=== PATIENT | female | born 1960 | race Caucasian/White ===

== ENCOUNTER 2021-12-05 11:21 | Day surgery (SDC) | payer OTHER ==
[2021-12-04 11:43] VITALS: BMI 35.6
[~2021-12-05 11:21] MED LIST: ATROPINE SULFATE 0.4 MG/ML 1 ML VIAL IM ONE; LACTATED RINGERS 1,000 ML IV SCH; LIDOCAINE VISCOUS 300 MG/15 ML CUP MUCOUS MEM ONE; SODIUM CHLORIDE 0.9% 1,000 ML IV SCH
[2021-12-05] MEDS ORDERED: ONDANSETRON 4 MG/2 ML VIAL ONE (11:56)
[2021-12-05 12:13] LABS: Glucose,Whole Blood 118 mg/dL (70-110)
--- NOTE | 2021-12-05 12:53 | CT ---
EXAMINATION TYPE: CT Chest evelyn Olson Protocol DATE OF EXAM: 12/05/2021 COMPARISON: None HISTORY: 61-year-old female shortness of breath, imaging for NAVIGATIONAL BRONCHOSCOPY 12/05/21 TECHNIQUE: Contiguous axial scanning of the chest without IV contrast. Both inspiratory and expirator y phase imaging is performed. Coronal and sagittal reconstructions performed. CT DLP: 627.4 mGycm Automated exposure control for dose reduction was used. FINDINGS: Heart normal size without pericardial effusion. LAD coronary artery calcifications are present. Ectatic ascending aorta 3.8 cm. Mild atherosclerotic arch calcifications with conventional vessel bra nching anatomy. No thoracic lymphadenopathy by CT size criteria. Mild centrilobular emphysema. 4 mm subpleural pulmonary nodule posterior right upper lobe, axial image 18 is nonspecific. A vague 8 mm groundglass nodule right middle lobe, axial image 34 is nonspecific. A 1.8 cm posterior left lower lobe pulmonary nodule is more suspicious. No consolidation or pleural effusion. Tiny hiatal hernia. Visualized upper abdomen shows some calcifications right side of the liver, possi ble calcified granulomas mild to moderate stool burden. Moderate atelectatic calcifications continue in the abdominal aorta. Bones: Degenerative change left AC joint. Mild degenerative disc disease mid to lower thoracic spine. IMPRESSION: COPD WITH MILD EMPHYSEMA. A FEW PULMONARY NODULES ARE PRESENT WHICH CAN BE REASSESSED AT FOLLOW-UP. H OWEVER, A 1.8 CM POSTERIOR LEFT LOWER LOBE PULMONARY NODULE IS SUSPICIOUS FOR NEOPLASM. APPROPRIATE W ORKUP AND MANAGEMENT RECOMMENDED. IMAGING FOR ENDOBRONCHIAL NAVIGATION PLANNING PURPOSES.
[2021-12-05] MEDS ORDERED: PROPOFOL 10 MG/ML 20 ML VIAL IV ONE (13:08)
[2021-12-05] MEDS ORDERED: NEOSTIGMINE 1 MG/ML 10 ML VIAL ONE (13:08)
[2021-12-05] MEDS ORDERED: SUCCINYLCHOLINE CHLORIDE 200 MG/10 ML VIAL IV ONE (13:08)
[2021-12-05] MEDS ORDERED: fentaNYL (PF) 50 MCG/ML 2 ML AMP ONE (13:08)
[2021-12-05] MEDS ORDERED: MIDAZOLAM 2 MG/2 ML VIAL ONE (13:08)
[2021-12-05] MEDS ORDERED: GLYCOPYRROLATE 0.2 MG/ML 2 ML VIAL ONE (13:08)
[2021-12-05] MEDS ORDERED: LIDOCAINE 2% INJ 20 MG/ML (2 ML VIAL) ONE (13:08)
[2021-12-05] MEDS ORDERED: ROCURONIUM 10 MG/ML (5 ML VIAL) IV ONE (13:08)
[2021-12-05] MEDS ORDERED: LACTATED RINGERS 1,000 ML IV ONE (13:54)
[2021-12-05 14:12] VITALS: TEMP 97.4
--- NOTE | 2021-12-05 14:33 | XR ---
EXAMINATION TYPE: XR chest 1V portable DATE OF EXAM: 12/05/2021 COMPARISON: CT chest 12/05/2021 HISTORY: Post biopsy TECHNIQUE: Single frontal view of the chest is obtained. FINDINGS: No evident complication, there is no pneumothorax evident. No sizable effusion. Heart size accentuated likely due to prominent epicardial fat pad. Patient's left lower lobe lung nodule not we ll seen. Aorta is dense. IMPRESSION: No evident complication status post lung biopsy.
[2021-12-05 14:52] VITALS: RESP 18
[2021-12-05 15:26] VITALS: BP 143/72; PULSE 78
--- NOTE | 2021-12-05 23:31 | PCN ---
PROCEDURE NOTE PROCEDURE PERFORMED: Navigational bronchoscopy. PREOPERATIVE DIAGNOSIS: Solitary pulmonary nodule, left lower lobe. POSTOPERATIVE DIAGNOSIS: Solitary pulmonary nodule, left lower lobe, rule out cancer. OPERATORS: Dr. Awad and Dr. Pop. The patient's procedure took place in room #1 [facility]. There was informed consent and universal timeout. DESCRIPTION OF PROCEDURE: Anesthesia provided general anesthesia including Dr. Ernandez. After the patient was adequately sedated under the effects of anesthesia, the bronchoscope was inserted through the bronchoscope adapter connected to the endotracheal tube. We used the [employer] electromagnetic navigational system to guide this to the lesion in the left lower lobe. Preprocedure mapping was performed. Initially, we were able to localize the lesion and do multiple transbronchial biopsies. The patient tolerated that portion of the procedure well. Next, we did brushes in the same area of the left lower lobe. Next, we did needle biopsies of the left lower lobe and we finally did a wash in the left lower lobe. We did 2 good needle biopsies with relatively good localization. The patient tolerated the procedure well. There was no immediate complication. A chest x- ray will be ordered. The patient will be recovered. I did talk to the patient's son, Jaleel, to give him an update. All the specimens were sent to the laboratory for analysis. Again, the patient tolerated the procedure well without difficulty. MMODL / IJN: [id number] /
[2021-12-06 01:05] LABS: Appearance,BF Blood Tinged
== END 2021-12-05 15:38 | disposition home or self-care (01) ==
LOC: ORWHC2ENDO 11:21
PROVIDERS: ATTEND Internal Medicine Critical Care Medicine
DX: R91.1 Solitary pulmonary nodule (principal); I10 Essential (primary) hypertension; E78.5 Hyperlipidemia, unspecified; J44.9 Chronic obstructive pulmonary disease, unspecified; F41.9 Anxiety disorder, unspecified; K21.9 Gastro-esophageal reflux disease without esophagitis; B19.20 Unspecified viral hepatitis C without hepatic coma; E07.9 Disorder of thyroid, unspecified; E11.9 Type 2 diabetes mellitus without complications; Z79.899 Other long term (current) drug therapy; Z87.891 Personal history of nicotine dependence; Z79.51 Long term (current) use of inhaled steroids; Z79.890 Hormone replacement therapy; Z79.84 Long term (current) use of oral hypoglycemic drugs; Z88.1 Allergy status to other antibiotic agents; T75.3XXD Motion sickness, subsequent encounter
CPT/HCPCS: 88104; 88108; 88305; 89050; 87070; 87205; 71045; 71250; 31629; 31625; 31624; 31627; J2250; J0330; J0461; J2710; J2405; J3010; J2704; J2001; 31623

== ENCOUNTER → 2022-10-30 | Outpatient (CLI) | payer OTHER ==
[2022-10-30 18:30] LABS: African American GFR (CKD) >90 (>60 ml/min/1.73 sqM); Blood Urea Nitrogen 14 mg/dL (7-17); Non-African American GFR(CKD) >90 (>60 ml/min/1.73 sqM)
--- NOTE | 2022-10-31 13:04 | CT ---
EXAMINATION TYPE: CT chest w con DATE OF EXAM: 10/30/2022 COMPARISON: 03/08/2022 HISTORY: lung nodules CT DLP: 522.1 mGycm, Automated exposure control for dose reduction was used. CONTRAST: Performed injected with 100 cc mL of Isovue 300. TECHNIQUE: Axial images were obtained at 5 mm thick sections. Reconstructed images are reviewed on [employer] computer in the coronal plane. FINDINGS: Portion of the thyroid visualized is normal. There is a 0.9 cm lobular density in the periphery right midlung. Series 4 image 39. This appears to be new from the comparison study of 03/08/2022. There is increased density in the posterior medial left lung base, series 4 image 47, measuring 2.0 x 3.5 cm. This may be the location of a previous nodule in the posterior left lower lobe which may h ave been resected. No enlarged mediastinal or hilar adenopathy is evident. . Small lymph nodes are present. The ascend ing aorta diameter at the level of the main pulmonary artery is 3.7 cm. The main pulmonary artery di ameter at the bifurcation is 2.7 cm. Coronary artery calcification is evident. Limited CT sections are obtained through the upper abdomen. Abdomen is essentially unremarkable. IMPRESSION: 1. New subcentimeter lobular density peripheral right midlung. Consider PET/CT for additional workup. 2. Suspected post resection posterior right lung base nodule with scarring and surgical clips posteri or medial left lung base.
== END | disposition home or self-care (01) ==
LOC: RADCTMAIN 17:31
PROVIDERS: ATTEND Internal Medicine Critical Care Medicine
DX: J98.4 Other disorders of lung (principal); R91.1 Solitary pulmonary nodule
CPT/HCPCS: 82565; 84520; 71260; 36415; Q9967

== ENCOUNTER → 2022-12-07 | Outpatient (CLI) | payer BC ==
--- NOTE | 2022-12-12 08:44 | PE ---
EXAMINATION TYPE: PET CT fusion skull to thigh DATE OF EXAM: 12/07/2022 COMPARISON: CT chest 10/29/2022 Prior PET/CT: None HISTORY: Solitary pulmonary nodule TECHNIQUE: Following the intravenous administration of 10.3 mCi of F-18 FDG, whole body images are p erformed from the skull base to the midthigh. Images are reviewed on the computer in the coronal, ax ial, and sagittal planes. Reconstructed rotating images are created on independent workstation and r eviewed on the computer. A localization and attenuation correction CT is performed in conjunction w ith the PET scan. DLP: 794.99 mGycm SCAN: Initial Scan Blood glucose: 136 mg/dL Average Mediastinum SUV: 2.2 Average Liver SUV: 2.89 FINDINGS: NECK: There is some mildly increased uptake within the right posterior auricular lymph node with an SUV of 2.51. Image 26 THORAX: There is a focus of radiotracer within a left peribronchial lymph node, image 83, SUV 6.3. Th ere is a punctate focus of increased radiotracer in the left infrahilar region, image 86, SUV 3.15. T here is increased uptake in the subcarinal region, image 90, SUV 3.64. Within the infrahilar mass on the superior portion there is a focus of increased radiotracer accumula tion, image 93 SUV 7.27. ABDOMEN: No abnormal uptake PELVIS: No abnormal uptake OSSEOUS STRUCTURES: No abnormal uptake LOCALIZATION CT: There are additional prominent lymph nodes within the pretracheal space without abno rmal radiotracer uptake. COMPARISON: Findings at the left infrahilar region correlate with the superior portion CT mass the le ft infrahilar region. IMPRESSION: 1. Uptake within the left infrahilar lung mass with additional uptake within infrahilar and mediastin al lymph nodes discussed above. 2. Some right posterior auricular uptake may be within a lymph node. This is more intermediate intens ity and could be related to infection.
== END | disposition home or self-care (01) ==
LOC: RADPETMAIN 11:53
PROVIDERS: ATTEND Internal Medicine Critical Care Medicine
DX: R91.1 Solitary pulmonary nodule (principal); R91.8 Other nonspecific abnormal finding of lung field
CPT/HCPCS: 78815; A9552

== ENCOUNTER → 2023-04-04 | Outpatient (CLI) | payer BC ==
[2023-04-04 11:00] LABS: African American GFR (CKD) >90 (>60 ml/min/1.73 sqM); Blood Urea Nitrogen 18 mg/dL (7-17); Non-African American GFR(CKD) 82 (>60 ml/min/1.73 sqM)
--- NOTE | 2023-04-04 12:53 | CT ---
Exam: CT Chest with contrast. Date: 04/04/2023. Comparison: PET/CT on 12/07/2022. History: Lung cancer. Technique: CT examination of the chest was performed following the intravenous administration of 100 mL of Isovue-300. Coronal and sagittal reformats were performed. CT dose lowering techniques were us ed, to include: automated exposure control, adjustment for patient size, and/or use of iterative braxton nstruction. FINDINGS: Mediastinum and Renuka: There is enlarged lower cervical lymph node and supraclavicular lymph node sanjuanita uring up to 1.4 cm in short axis diameter. This appears new since the previous examination. New enlar ged necrotic appearing subcarinal lymph node measuring 1.9 cm in short axis diameter. Pleural and Pericardial spaces: There are no pleural or pericardial effusions. Upper Abdomen: Unchanged cyst in the left lobe of liver measuring 3.37 m in diameter. Mild diffuse de creased attenuation of the liver is compatible fatty liver infiltration. The visualized upper abdomen otherwise appears unremarkable. Cardiovascular: There is mild vascular calcification in the thoracic aorta without evidence of aneury smal dilation or dissection. Mild patchy coronary artery calcifications are seen. Pulmonary Artery: There are no central pulmonary arterial abnormalities. The examination was not per formed to evaluate for pulmonary embolism. Lung Parenchyma and Airways: 2 mm nodule in the right upper lobe on series 4 image 16 is unchanged. I rregular parenchymal changes within the left lower lobe and infrahilar region measures up to approxim ately 2.5 cm in maximum diameter. This appears similar to the previous examination. There are a few b ands of opacity otherwise seen within the left lung base which are likely due to chronic scarring. Th e lungs otherwise appear clear. Bones: No fracture or aggressive osseous lesion. IMPRESSION: 1. New enlarged left supraclavicular and subcarinal lymph node which is suspicious for metastatic dis ease. 2. Infrahilar parenchymal abnormality and mass in the left lower lobe appears very similar to the pre vious examination and may represent residual disease.
== END | disposition home or self-care (01) ==
LOC: RADCTMAIN 10:01
PROVIDERS: ATTEND Internal Medicine Hematology & Oncology
DX: R91.8 Other nonspecific abnormal finding of lung field (principal); C34.32 Malignant neoplasm of lower lobe, left bronchus or lung; J44.9 Chronic obstructive pulmonary disease, unspecified; I10 Essential (primary) hypertension; E05.90 Thyrotoxicosis, unspecified without thyrotoxic crisis or storm
CPT/HCPCS: 82565; 84520; 71260; 36415; Q9967

== ENCOUNTER 2023-04-17 08:08 | Day surgery (SDC) | payer BC ==
--- NOTE | 2023-04-15 10:57 | PE ---
EXAMINATION TYPE: PET CT fusion skull to thigh DATE OF EXAM: 04/11/2023 CLINICAL INDICATION:Female, 62 years old with history of R91.1 LUNG NODULE; TECHNIQUE: Following the intravenous administration of 8.23 mCi of F-18 FDG, whole body images are performed from the skull base to the midthigh. Images are reviewed on the computer in the coronal, a xial, and sagittal planes. Reconstructed rotating images are created on independent workstation and reviewed on the computer. A non-contrast CT is performed in conjunction with the PET scan. Glucose level 105 mg/dL CT DLP: 840 mGycm, Automated exposure control for dose reduction was used. COMPARISON: CT 04/04/2023, PET/CT 12/07/2022, FINDINGS: Mediastinal SUV mean is 2.4 . Hepatic parenchyma SUV mean is 2.5. SKULL BASE AND NECK: * Left neck FDG avid lymph node max SUV 12.2 measuring 10 mm in short axis. CHEST, MEDIASTINUM, AND HILAR REGION: Scattered mediastinal FDG avid lymph nodes. Examples include: * Subcarinal lymph node measuring 36 x 18 mm Max SUV 15.6 * 10L max SUV 9.4, previously 6.3. * Right low paratracheal max SUV 15.0. Left inferior pulmonary hilum max SUV 11.1, previously 7.3. * Left infrahilar/lower lobe precarinal abnormality max SUV 2.7 previously 7.3. Findings likely repr esent scarring. ABDOMEN AND PELVIS: Heterogenous uptake within the liver. No definitive lesions identified. Areas of more focal uptake scattered throughout all to be physiologic. Attention on follow-up imaging. MUSCULOSKELETAL STRUCTURES: * Abnormal uptake within the left glenoid of the scapula max SUV 10.4. Uptake around the capsule is also present more superiorly max SUV 8.3. OTHER CT: A left hepatic lobe probable cyst. Right hepatic lobe calcifications. Metallic density. Sca ttered colonic diverticula. Fat-containing umbilical hernia. IMPRESSION: 1. Progression of disease with increasing metabolic reactive lymphadenopathy throughout the spine, a single left neck lymph no. 2. Uptake within the left glenoid possibly posttraumatic versus metastatic disease. Correlate with r ecent injury to left shoulder given some capsular uptake. * Heterogenous uptake within the liver. Areas of more focal uptake scattered throughout are thought to be physiologic. Attention on follow-up imaging to exclude early metastatic disease.
[2023-04-17 08:40] VITALS: BP 142/69; PULSE 80; RESP 12; TEMP 97.4
--- NOTE | 2023-04-17 13:18 | US ---
EXAMINATION TYPE: US biopsy lymph node DATE OF EXAM: 04/17/2023 9:33 AM CLINICAL INDICATION: Female, 62 years old with history of C34.32 MALIGNANT NEOPLASM OF LOWER LOBE, LE FT BRON; COMPARISON: Correlation PET/CT 04/11/2023 ATTENDING: Dr. Ch TECHNIQUE: Ultrasound guided percutaneous biopsy of a mildly enlarged left supraclavicular lymph node using troc ar method. The patient was monitored by a qualified trained nurse independent of the Radiologist vu zepeda sedation. FINDINGS: The procedure was explained to the patient. All questions were answered and informed consent was obta ined. The patient was placed supine and images of the 2 cm thickened left supraclavicular lymph node are id entified. This is targeted for biopsy. The overlying skin was marked and prepped using sterile method. Timeout was taken per protocol. Follo wing administration 1% local lidocaine anesthesia, a 6 cm 18-gauge Temno needle was advanced with nee dle tip visualized within the lymph node. We avoided the surrounding veins and adjacent carotid arter y. Two 18-gauge core biopsies were obtained, placed in formalin solution, and sent to pathology. The needle was removed. Hemostasis was obtained and a dressing was placed. Patient was discharged in stable condition. IMPRESSIONS: Status post ultrasound guided core needle biopsy of the left supraclavicular lymph node of interest. Pathology results pending.
== END 2023-04-17 09:16 | disposition home or self-care (01) ==
LOC: RADPROMAIN 08:08
PROVIDERS: ATTEND Internal Medicine Hematology & Oncology
DX: C34.32 Malignant neoplasm of lower lobe, left bronchus or lung (principal); C78.00 Secondary malignant neoplasm of unspecified lung
CPT/HCPCS: 88305; 88342; 88341; 76942; 38505; 78815; A9552

== ENCOUNTER → 2023-06-04 | Outpatient (CLI) | payer BC ==
--- NOTE | 2023-06-12 10:36 | MR ---
EXAMINATION TYPE: MR ankle LT wo con, MR foot LT wo con DATE OF EXAM: 06/04/2023 COMPARISON: Anterior tibial syndrome. Left ankle pain and redness for about 2 months per patient. Lef t foot pain and swelling for a couple months. HISTORY: LT Ankle pain (accession [id number]), Left foot/ankle pain. (accession [id number]) Standard multiplanar, multisequence MRI departmental protocol Multiplanar, multisequence images of the left ankle and foot were acquired without contrast. FINDINGS: There are 2 small foci of increased T2 signal involving the proximal cuneiforms axial image 13. Suspect subchondral cyst or other benign etiology. No serpiginous diminished T1 signal to sugges t avascular necrosis. Talar dome is maintained. Small posterior tibiotalar joint effusion is presumed physiologic. Normal sinus tarsi fat is seen. Anterior tibiofibular and anterior talofibular ligaments are intact. Posterior syndesmosis is intact. Medial deltoid ligament is intact. Achilles tendon appears within no rmal limits. Small inferior calcaneal spur. Plantar fascia is intact. Some fluid surrounds the peroneal tendons just inferior to the lateral malleolus. Flexor tendons anthony g posterior medial aspect of the ankle are intact. Extensor tendons anteriorly show markedly increased signal and thickening of the medial most extensor tendon with retracted tear to the level of the anterior talus seen best on sagittal image 15 and 16. Some adjacent and/or surrounding mild subcutaneous edema is present. Mild to moderate narrowing and spurring throughout the mid foot structures is seen. Lisfranc joints a re maintained. There is hallux valgus positioning first metatarsophalangeal joint. There is marked fl exion or hammertoe type appearance of the second through fourth toes. Inhomogeneity of the fat satura tion pulses noted making evaluation slightly suboptimal. IMPRESSION: 1. Tibialis anterior tendon rupture with surrounding subcutaneous edema.
== END | disposition home or self-care (01) ==
LOC: RADMRIMAIN 12:56
PROVIDERS: ATTEND Podiatrist Foot & Ankle Surgery
DX: S96.912A Strain of unspecified muscle and tendon at ankle and foot level, left foot, initial encounter (principal); M76.812 Anterior tibial syndrome, left leg; R60.9 Edema, unspecified; X58.XXXA Exposure to other specified factors, initial encounter

== ENCOUNTER → 2023-06-05 | Outpatient (CLI) | payer BC ==
--- NOTE | 2023-06-12 10:35 | MR ---
EXAMINATION TYPE: MR ankle LT wo con, MR foot LT wo con DATE OF EXAM: 06/04/2023 COMPARISON: Anterior tibial syndrome. Left ankle pain and redness for about 2 months per patient. Lef t foot pain and swelling for a couple months. HISTORY: LT Ankle pain (accession [id number]), Left foot/ankle pain. (accession [id number]) Standard multiplanar, multisequence MRI departmental protocol Multiplanar, multisequence images of the left ankle and foot were acquired without contrast. FINDINGS: There are 2 small foci of increased T2 signal involving the proximal cuneiforms axial image 13. Suspect subchondral cyst or other benign etiology. No serpiginous diminished T1 signal to sugges t avascular necrosis. Talar dome is maintained. Small posterior tibiotalar joint effusion is presumed physiologic. Normal sinus tarsi fat is seen. Anterior tibiofibular and anterior talofibular ligaments are intact. Posterior syndesmosis is intact. Medial deltoid ligament is intact. Achilles tendon appears within no rmal limits. Small inferior calcaneal spur. Plantar fascia is intact. Some fluid surrounds the peroneal tendons just inferior to the lateral malleolus. Flexor tendons anthony g posterior medial aspect of the ankle are intact. Extensor tendons anteriorly show markedly increased signal and thickening of the medial most extensor tendon with retracted tear to the level of the anterior talus seen best on sagittal image 15 and 16. Some adjacent and/or surrounding mild subcutaneous edema is present. Mild to moderate narrowing and spurring throughout the mid foot structures is seen. Lisfranc joints a re maintained. There is hallux valgus positioning first metatarsophalangeal joint. There is marked fl exion or hammertoe type appearance of the second through fourth toes. Inhomogeneity of the fat satura tion pulses noted making evaluation slightly suboptimal. IMPRESSION: 1. Tibialis anterior tendon rupture with surrounding subcutaneous edema.
== END | disposition home or self-care (01) ==
LOC: RADMRIMAIN 17:34
PROVIDERS: ATTEND Podiatrist Foot & Ankle Surgery
DX: M67.874 Other specified disorders of tendon, left ankle and foot (principal); M76.812 Anterior tibial syndrome, left leg

== ENCOUNTER → 2023-08-06 | Outpatient (CLI) | payer BC ==
[2023-08-06 15:42] LABS: African American GFR (CKD) >90 (>60 ml/min/1.73 sqM); Blood Urea Nitrogen 17 mg/dL (7-17); Non-African American GFR(CKD) 80 (>60 ml/min/1.73 sqM)
--- NOTE | 2023-08-06 16:11 | CT ---
EXAMINATION TYPE: CT chest w con DATE OF EXAM: 08/06/2023 COMPARISON: July 2023 HISTORY: obs for mets hx of lung ca. CT DLP: 479.5 mGycm Automated exposure control for dose reduction was used. CONTRAST: CT scan of the chest is performed with IV Contrast, patient injected with 100ml mL of Isovue 300. FINDINGS: LUNGS: Left lower lobe pulmonary nodule measures 1.6 cm versus 2.5 cm on prior examination. No additi onal pulmonary nodules seen. No evidence of volume loss or pleural effusion. MEDIASTINUM: Subcarinal adenopathy measuring 1.2 cm. Subcentimeter mediastinal lymph nodes seen. Thor acic aorta is of normal caliber. The heart is not enlarged. UPPER ABDOMEN: Peripheral hepatic calcifications seen. OTHER: No additional significant abnormality is seen. IMPRESSION: 1. Left lower lobe pulmonary nodule is smaller in size. No new nodules seen. 2. Subcarinal adenopathy.
== END | disposition home or self-care (01) ==
LOC: RADCTMAIN 15:04
PROVIDERS: ATTEND Internal Medicine Hematology & Oncology
DX: C34.32 Malignant neoplasm of lower lobe, left bronchus or lung (principal); R91.1 Solitary pulmonary nodule; R59.9 Enlarged lymph nodes, unspecified; I10 Essential (primary) hypertension; E05.90 Thyrotoxicosis, unspecified without thyrotoxic crisis or storm; J44.9 Chronic obstructive pulmonary disease, unspecified; E11.9 Type 2 diabetes mellitus without complications
CPT/HCPCS: 82565; 84520; 71260; 36415; Q9967

== ENCOUNTER → 2023-09-24 | Outpatient (CLI) | payer BC ==
--- NOTE | 2023-10-22 12:26 | MR ---
EXAMINATION TYPE: MR thoracic spine w/with con DATE OF EXAM: 09/24/2023 COMPARISON: No comparison available on downtime PACS. HISTORY: Lung cancer foot drop CONTRAST: Performed utilizing 9 mL intravenous Gadavist gadolinium contrast. TECHNIQUE: Multiplanar, multiecho imaging on a 3.0 Sana magnet is performed through the thoracic spine. Spinal cord maintains normal signal through its visualized course. Vertebral body alignment is normal. Vertebral body heights are preserved. Disc heights are preserved. Some minimal disc bulging may be present T6-7, right paracentral T7-8, and broad-based T12-L1. No spinal canal stenosis evident. No cord contact evident. Disc hydration levels are preserved. No spinal canal stenosis is evident. No suspicious enhancement within the spinal canal or osseous structures is evident. IMPRESSION: 1. Minimal disc bulges without cord contact or spinal canal stenosis within the mid to lower thoracic spine discussed above. 2. No suspicious masses to suggest metastatic disease within the thoracic spine. EXAMINATION TYPE: MR lumbar spine wo/with contrast DATE OF EXAM: 09/24/2023 COMPARISON: No comparison available on downtime PACS. HISTORY: Lung cancer foot drop CONTRAST: 9 mL intravenous Gadavist. TECHNIQUE: Multiplanar, multisequence images of the lumbar spine were acquired. FINDINGS: L5-S1: No significant disc bulge or disc herniation. No spinal canal stenosis. Severe bilateral foraminal narrowing is present.. L4-L5: Mild disc bulge is present with anterior thecal sac contact. Some ligamentum flavum laxity is present. There is moderate left and mild right foraminal narrowing No spinal canal stenosis. L3-L4: No significant disc bulge or disc herniation. No spinal canal stenosis. No foraminal stenosis. Facet hypertrophy is present. L2-L3: Broad-based disc bulge has anterior thecal sac flattening. No spinal canal stenosis. No foraminal stenosis. Mild Facet hypertrophy is present. L1-L2: A based disc bulge is mild anterior thecal sac compression. No AP spinal canal stenosis. Facet hypertrophy is present. Neural foramen are patent No spinal canal stenosis. T12-L1: Mild disc bulge is present with anterior thecal sac contact. No AP spinal canal stenosis. Neural foramen are patent. No spinal canal stenosis. No foraminal stenosis. No abnormal enhancement within the spinal canal or osseous structures. IMPRESSION: 1. Mild disc bulging without spinal canal stenosis. 2. Bilateral Foraminal narrowing lower lumbar spine discussed above MTDD
== END | disposition home or self-care (01) ==
LOC: RADMRIMAIN 12:00
PROVIDERS: ATTEND Internal Medicine Hematology & Oncology
CPT/HCPCS: 72157; 72158

== ENCOUNTER → 2023-09-25 | Outpatient (CLI) | payer BC ==
--- NOTE | 2023-10-18 17:07 | MR ---
INDICATION: Patient age:Female; 63 years old; Reason for study: lung cancer.; PHH. COMPARISON: None. TECHNIQUE: Multi planar, multi sequence imaging was performed through the brain. The patient was then given 8 cc of Gadavist intravenously and multi planar, T1 fat-saturation images were obtained. FINDINGS: The bartholomew-white junctions, ventricular system, basal cisterns appear unremarkable. Diffusion-weighted imaging shows no evidence of restricted diffusion to suggest acute/subacute infarct. Remote lacunar i nfarct within the right basal ganglia. Intracranial arterial flow voids are maintained. Midline struc tures show no abnormality. Patchy areas of high T2/FLAIR signal intensity are seen within the periven tricular and subcortical white matter. There is a ring-enhancing posterior right frontal lobe white m atter intra-axial lesion identified measuring 0.9 x 0.7 x 1.0 cm (series 901, image 137). Mild surrou nding vasogenic edema identified. This demonstrates peripheral and punctate central restricted diffus ion. This is T2/FLAIR high signal with low T1 signal. No midline shift. There is some microhemorrhage identified within the lesion with blooming artifact identified. The bone marrow signal is within normal limits. The globes are unremarkable. Incidental right WILD OYSTER HARVESTER. Mild mucosal thickening of the left maxillary sinus. IMPRESSION: 1. Single ring-enhancing 1 cm lesion within the right frontal lobe. This demonstrates some restricted diffusion with mild surrounding vasogenic edema. Etiologies include necrotic metastasis versus absce ss in the appropriate clinical setting. 2. No acute/subacute infarct. 3. Nonspecific white matter changes. Etiologies include small vessel ischemic disease versus other wi th metastasis is not entirely excluded. However there is no enhancement of these lesions. 4. Small remote right basal ganglia lacunar infarct.
--- NOTE | 2023-10-21 11:52 | MR ---
Site ID [facility] Tianna Bobby ID [id number] Order # Procedure MR brain wo/w con EXAMINATION TYPE: MR brain w con DATE OF EXAM: 09/26/2023 11:55 AM CLINICAL INDICATION: CANCER OF LUNG LOWER LOBE LEFT COMPARISON: THIS EXAM WAS READ DURING PACS DOWNTIME, NO PRIORS AVAILABLE. TECHNIQUE: Multi planar, multi sequence imaging was performed through the brain including: T1, T2, In version recovery, susceptibility weighted imaging and gradient echo imaging and Diffusion weighted im aging. The patient was then given intravenous contrast and multi planar, T1 fat-saturation images wer e obtained. IV Contrast: 8 MLS GADAVIST FINDINGS: Peripherally enhancing lesion in the right posterior frontal/parietal region measuring 10 x 8 mm. Focus of restricted diffusion within the right thalamus/posterior limb of the internal capsule . The bartholomew-white junctions, ventricular system, basal cisterns appear unremarkable. Intracranial arter ial flow voids are maintained. Midline structures show no abnormality. Scattered foci of high T2 sign al intensity are seen within the periventricular white matter. The susceptibility weighted images do not reveal any evidence for micro-hemorrhage. The bone marrow signal is within normal limits. Paranasal sinuses and mastoid air cells: No significant paranasal sinus disease. Visualized orbits: Orbital contents are intact. IMPRESSION: 1. Peripherally enhancing mass in the right posterior frontal/parietal region measuring 10 x 8 mm. 2. Tiny focus of restricted diffusion in the right thalamus/posterior limb of internal capsule correl ate for acute/subacute CVA. 3. Nonspecific white matter changes, likely related to small vessel ischemic disease.
== END | disposition home or self-care (01) ==
LOC: RADMRIMAIN 19:00
PROVIDERS: ATTEND Internal Medicine Hematology & Oncology
DX: C34.32 Malignant neoplasm of lower lobe, left bronchus or lung (principal); R90.82 White matter disease, unspecified; G93.89 Other specified disorders of brain; Z86.73 Personal history of transient ischemic attack (TIA), and cerebral infarction without residual deficits
CPT/HCPCS: 70553; A9585; 72157; 72158

== ENCOUNTER → 2023-10-08 | Outpatient (CLI) | payer BC ==
[2023-10-08 14:25] LABS: African American GFR (CKD) >90 (>60 ml/min/1.73 sqM); Blood Urea Nitrogen 15 mg/dL (7-17); Non-African American GFR(CKD) 87 (>60 ml/min/1.73 sqM)
--- NOTE | 2023-10-08 15:10 | CT ---
EXAMINATION TYPE: CT chest w con CT DLP: 655 mGycm, Automated exposure control for dose reduction was used. DATE OF EXAM: 10/08/2023 3:00 PM COMPARISON: CT chest 08/06/2023, 04/04/2023, PET/CT 04/11/2023, 12/07/2022 CLINICAL INDICATION:Female, 63 years old with history of C34.32 MALIGNANT NEOPLASM OF LOWER LOBE, LEF T BRON; PHH, cough, hx of lung ca TECHNIQUE: Multiple axial images were obtained through the chest following the administration of 100 cc of Isovue 300. . Coronal and sagittal reformats reviewed. FINDINGS: LUNGS/ PLEURA: Left lung volume loss with postsurgical changes. No pleural effusion or pneumothorax. Stable left lower lobe 1.2 cm pulmonary nodule (series 4, image 40). No definitive new pulmonary nod ules or masses. New patchy groundglass opacities throughout both lungs. Most prominently involving th e bilateral upper lobes. AIRWAY: Patent and unremarkable.. HEART: Size within normal limits. No pericardial effusion. MEDIASTINUM: No evidence of adenopathy 1 cm short axis. Examples include a precarinal lymph node that measures 0.6 and a short axis. Previously measured 1.1 cm short axis on prior PET/CT. VASCULATURE: No aortic aneurysm. Atherosclerotic calcification of the aorta and its branches. MUSCULOSKELETAL: No acute osseous abnormalities. No aggressive osseous lesion. Mild multilevel degene rative disc disease. SOFT TISSUES/LYMPH NODES: Unremarkable. LOWER NECK: No significant findings. UPPER ABDOMEN: Small hiatal hernia. Calcified granulomas within the right hepatic lobe. Exophytic lef t hepatic lobe 3.0 cm cyst. IMPRESSION: 1. Stable left lower lobe pulmonary nodule. No new or enlarging pulmonary nodules/masses. No new lymp hadenopathy. 2. New patchy ground glass opacities throughout the lungs likely representing an infectious/inflammat ory process.
== END | disposition home or self-care (01) ==
LOC: RADCTMAIN 13:43
PROVIDERS: ATTEND Internal Medicine Hematology & Oncology
DX: C34.32 Malignant neoplasm of lower lobe, left bronchus or lung
CPT/HCPCS: 36415; 71260; 82565; 84520

== ENCOUNTER 2024-01-03 10:49 | Inpatient (IN) | payer BC ==
--- NOTE | 2024-01-03 11:20 | ED ---
Weakness HPI - General Source: patient, family, RN notes reviewed Mode of arrival: wheelchair Limitations: no limitations - History of Present Illness MD Complaint: focal weakness, lack of energy, difficulty walking Onset/Timin -: days(s) Location: [facility] <Bairon Presley - Last Filed: 01/03/24 11:16> - General Source: patient, family, RN notes reviewed Limitations: no limitations <Jt Gorman - Last Filed: 01/03/24 14:05> - General Chief complaint: Weakness Stated complaint: Dizziness,Weakness Time Seen by Provider: 01/03/24 11:03 - History of Present Illness Initial comments: Quick note: This is a 63-year-old female presenting with son for left-sided weakness x 3 days. Patient endorses having poor balance, difficulty concentrating and dizziness that worsens with positional changes over the past 3 days. Patient states she is unable to walk normally. Son states patient requires rehab and was advised that patient requires admission to [facility] hospital. Patient states she has been taking muscle relaxers on Saturday and Saturday for her left side/back pain which she had stopped yesterday. Endorses some improvement in symptoms but weakness and cognitive changes persist. Patient also suffered a fall while in the bathroom. Endorses use of Eliquis for the past 7 weeks. Patient states she sees Dr. Manley. (Bairon Presley) Patient is a 63-year-old female presenting to the emergency department with concerns for drowsiness and general weakness. Symptoms have been present for the past 3 days. Despite as said above weakness is generalized and not left- sided. Patient does have chronic left leg weakness and foot drop however this is not new. Patient has had a couple of falls recently without significant injury. Patient was recently started on muscle relaxer and also takes Ultram and a sleeping pill. Patient has had decreased oral intake recently. Patient did have a recent admission for pneumonitis. (Jt Gorman) - Related Data Home Medications Medication Instructions Recorded Confirmed Albuterol Inhaler [Ventolin Hfa 1 puff INHALATION TID PRN 12/04/21 07/09/23 Inhaler] Gabapentin 600 mg PO HS 12/04/21 07/09/23 Gabapentin [Neurontin] 300 mg PO BID 12/04/21 07/09/23 Levothyroxine Sodium [Synthroid] 88 mcg PO DAILY 12/04/21 07/09/23 Losartan/Hydrochlorothiazide 1 tab PO DAILY 12/04/21 07/09/23 [Losartan-Hctz 100-12.5 mg Tab] Meloxicam [Mobic] 15 mg PO DAILY 12/04/21 07/09/23 amLODIPine [Norvasc] 5 mg PO DAILY 12/04/21 07/09/23 buPROPion HCL [buPROPion HCL XL] 300 mg PO DAILY 12/04/21 07/09/23 traMADol HCL 50 mg PO Q6H PRN 12/04/21 07/09/23 Acetaminophen [Tylenol] 325 mg PO DIRECTED PRN 04/18/22 07/09/23 Aspirin [Adult Low Dose Aspirin EC] 81 mg PO DIRECTED 04/18/22 07/09/23 Cholecalciferol [Vitamin D3 (25 50 mcg PO DAILY 04/18/22 07/09/23 Mcg = 1000 Iu)] Elderberry Fruit and Flower [Black 1 each PO DAILY 04/18/22 07/09/23 Elderberry 575 mg Cap] Fruit/Veggie Supplement 1 dose PO DAILY 04/18/22 07/09/23 Multivit with Calcium,Iron,Min 1 each PO DAILY 04/18/22 07/09/23 [Women's Multivitamin] Omeprazole [PriLOSEC] 40 mg PO HS 04/18/22 07/09/23 Rosuvastatin Calcium 20 mg PO HS 04/18/22 07/09/23 Zolpidem Tartrate [Ambien] 10 mg PO HS PRN 04/10/23 07/09/23 Ondansetron [Zofran] 1 tab PO QID PRN 05/27/23 07/09/23 OLANZapine [ZyPREXA] 2.5 mg PO DIRECTED 06/18/23 07/09/23 Allergies Allergy/AdvReac Type Severity Reaction Status Date / Time cefdinir Allergy SORES IN Verified 01/03/24 10:55 MOUTH" Review of Systems ROS Other: All systems not noted in ROS Statement are negative. <Bairon Presley - Last Filed: 01/03/24 11:16> ROS Other: All systems not noted in ROS Statement are negative. Constitutional: Denies: fever Eyes: Denies: eye pain ENT: Denies: ear pain Respiratory: Denies: cough, dyspnea Cardiovascular: Denies: chest pain Endocrine: Reports: as per HPI, fatigue Neurological: Reports: as per HPI <Jt Gorman - Last Filed: 01/03/24 14:05> ROS Statement: Those systems with pertinent positive or pertinent negative responses have been documented in the HPI. Past Medical History Past Medical History: COPD, Diabetes Mellitus, GERD/Reflux, Hyperlipidemia, Hypertension, Osteoarthritis (OA), Thyroid Disorder Additional Past Medical History / Comment(s): hx hepatitis c with tx., diabetes diet controlled., emphysema, back pain, hx of covid x2 (2019,2021), left lung mass., pt states mild oral thrush and started on nystatin -pt to notify Dr. Efrain BYRD. 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 , LEFT CARPAL TUNNEL RELEASE, LEFT ARTHROSCOPIC KNEE SURGERY., , RIGHT ELBOW SURGERY- (no anesthesia) Past Anesthesia/Blood Transfusion Reactions: No Reported Reaction Additional Past Anesthesia/Blood Transfusion Reaction / Comment(s): no hx of blood transfusion Past Psychological History: Anxiety Smoking Status: Former smoker Past Alcohol Use History: None Reported Past Drug Use History: None Reported - Past Family History Mother Family Medical History: No Reported History Sister(s) Family Medical History: Blood Disorder, Deep Vein Thrombosis (DVT) Additional Family Medical History / Comment(s): LEIDEN FACTOR FIVE <Bairon Presley - Last Filed: 01/03/24 11:16> General Exam Limitations: no limitations <Bairon Presley - Last Filed: 01/03/24 11:16> Limitations: no limitations General appearance: alert, in no apparent distress Head exam: Present: normocephalic Eye exam: Present: normal appearance, PERRL, EOMI ENT exam: Present: mucous membranes dry Neck exam: Present: normal inspection Respiratory exam: Present: normal lung sounds bilaterally Cardiovascular Exam: Present: regular rate, normal rhythm GI/Abdominal exam: Present: soft. Absent: tenderness Extremities exam: Present: normal inspection. Absent: pedal edema, calf tenderness Neurological exam: Present: alert Psychiatric exam: Present: normal affect, normal mood Skin exam: Present: normal color <Jt Gorman Last Filed: 01/03/24 14:05> - General Exam Comments Initial Comments: Visual Physical Exam Vital signs reviewed General: Well-appearing, nontoxic, no acute distress. Patient seated in wheelchair with O2 dependence via nasal cannula Head: Normocephalic, atraumatic Eyes: PERRLA, EOMI ENT: Airway patent Chest: Nonlabored breathing Skin: No visual rash, normal skin tone Neuro: Alert and oriented 3 Musculoskeletal: No gross abnormalities (Bairon Presley) Course Vital Signs 01/03/24 10:52 Temperature 97.5 F L Pulse Rate 100 Respiratory 20 Rate Blood Pressure 98/54 O2 Sat by Pulse 97 Oximetry EKG Findings - EKG Results: EKG: interpreted by ERMD, sinus rhythm, normal axis, normal QRS, normal ST/T <Jt Gorman - Last Filed: 01/03/24 14:05> Medical Decision Making <Bairon Preslye - Last Filed: 01/03/24 11:16> - Lab Data Result diagrams: 01/03/24 11:55 01/03/24 11:55 <Jt Gorman - Last Filed: 01/03/24 14:05> - Medical Decision Making I completed the quick note portion of this chart signed WAYLON Mclaughlin (Bairon Presley) Was pt. sent in by a medical professional or institution (LEN Dominguez, NUCLEAR PHYSICS PROFESSOR, urgent care, hospital, or longterm...) When possible be specific @ -No Did you speak to anyone other than the patient for history (EMS, parent, family, police, friend...)? What history was obtained from this source @ -Son is present and helps provide significant history including oncological history and current symptoms Did you review nursing and triage notes (agree or disagree)? Why? @ -I reviewed and agree with nursing and triage notes Were old charts reviewed (outside hosp., previous admission, EMS record, old EKG, old radiological studies, urgent care reports/EKG's, longterm records)? Report findings @ -Previous renal function and MRI and x-rays reviewed Differential Diagnosis (chest pain, altered mental status, abdominal pain women, abdominal pain men, vaginal bleeding, weakness, fever, dyspnea, syncope, headache, dizziness, GI bleed, back pain, seizure, CVA, palpatations, mental health, musculoskeletal)? @ -Differential Weakness: Hypoglycemia, shock, sepsis, hyponatremia, anemia, infection, LA, ETOH, adverse medicine reaction, overdose, stroke, this is not meant to be an all-inclusive list. EKG interpreted by me (3pts min.). @ -As above X-rays interpreted by me (1pt min.). @ -Chest x-ray shows some increased interstitial changes with left upper lobe infiltrate CT interpreted by me (1pt min.). @ -CT scan of the brain shows potential microhemorrhage in the area of known enhancing lesion on previous MRI U/S interpreted by me (1pt. min.). @ -None done What testing was considered but not performed or refused? (CT, X-rays, U/S, labs)? Why? @ -None What meds were considered but not given or refused? Why? @ -None Did you discuss the management of the patient with other professionals (professionals i.e. , PA, NUCLEAR PHYSICS PROFESSOR, lab, RT, psych nurse, older adult social work specialist, roving sizer, teacher, svp chief marketing officer, case picker)? Give summary @ -Case was discussed with Dr. Driscoll including CT results and x-ray and blood work and presentation. He will admit covering Dr. julian Was smoking cessation discussed for >3mins.? @ -No Was critical care preformed (if so, how long)? @ -No Were there social determinants of health that impacted care today? How? (Homelessness, low income, unemployed, alcoholism, drug addiction, transportation, low edu. Level, literacy, decrease access to med. care, snf, rehab)? @ -No Was there de-escalation of care discussed even if they declined (Discuss DNR or withdrawal of care, Hospice)? DNR status @ -No What co-morbidities impacted this encounter? (DM, HTN, Smoking, COPD, CAD, Cancer, CVA, ARF, Chemo, Hep., AIDS, mental health diagnosis, sleep apnea, morbid obesity)? @ -History of metastatic lung cancer Was patient admitted / discharged? Hospital course, mention meds given and route, prescriptions, significant lab abnormalities, going to OR and other pertinent info. @ -Patient presents with drowsiness and fatigue and decreased oral intake and generalized weakness. Patient does have some left-sided leg weakness that is mild and reported as chronic. Patient has JENNIFER which is new. Troponin is ind eterminant and will be monitored. Concern for pneumonia which could be from previous pneumonitis however will be treated. Oncology will be consulted for oncological care and review of head CT. Admission orders written. Undiagnosed new problem with uncertain prognosis? @ -No Drug Therapy requiring intensive monitoring for toxicity (Heparin, Nitro, Insulin, Cardizem)? @ -No Were any procedures done? @ -No Diagnosis/symptom? @ -Acute kidney injury, pneumonia Acute, or Chronic, or Acute on Chronic? @ -Acute, acute on chronic Uncomplicated (without systemic symptoms) or Complicated (systemic symptoms)? @ -Default Side effects of treatment? @ -No Exacerbation, Progression, or Severe Exacerbation? @ -Threat to renal, neurological, cardiac and pulmonary functions Poses a threat to life or bodily function? How? (Chest pain, USA, LA, pneumonia, PE, COPD, DKA, ARF, appy, cholecystitis, CVA, Diverticulitis, Homicidal, Suicidal, threat to staff... and all critical care pts) @ -No (Jt oGrman) - Lab Data Lab Results 01/03/24 01/03/24 01/03/24 Range/Units 11:55 11:55 11:55 WBC 9.6 (3.8-10.6) k/uL RBC 3.32 L (3.80-5.40) m/uL Hgb 10.4 L (11.4-16.0) gm/dL Hct 31.6 L (34.0-46.0) % MCV 95.0 (80.0-100.0) fL MCH 31.2 (25.0-35.0) pg MCHC 32.8 (31.0-37.0) g/dL RDW 18.9 H (11.5-15.5) % Plt Count 196 (150-450) k/uL MPV 7.9 Neutrophils % 81 % Lymphocytes % 5 % Monocytes % 9 % Eosinophils % 2 % Basophils % 1 % Neutrophils # 7.7 (1.3-7.7) k/uL Lymphocytes # 0.5 L (1.0-4.8) k/uL Monocytes # 0.9 (0-1.0) k/uL Eosinophils # 0.2 (0-0.7) k/uL Basophils # 0.1 (0-0.2) k/uL Hypochromasia Slight Poikilocytosis Slight Anisocytosis Slight Macrocytosis Slight PT 11.7 (10.0-12.5) sec INR 1.1 (<1.2) APTT 23.0 (22.0-30.0) sec Sodium 131 L (137-145) mmol/L Potassium 3.9 (3.5-5.1) mmol/L Chloride 96 L (98-107) mmol/L Carbon Dioxide 22 (22-30) mmol/L Anion Gap 13 mmol/L BUN 33 H (7-17) mg/dL Creatinine 2.33 H (0.52-1.04) mg/dL Est GFR (CKD-EPI)AfAm 25 (>60 ml/min/1.73 sqM) Est GFR (CKD-EPI)NonAf 22 (>60 ml/min/1.73 sqM) Glucose 143 H (74-99) mg/dL Plasma Lactic Acid Rishi (0.7-2.0) mmol/L Calcium 9.5 (8.4-10.2) mg/dL Phosphorus 4.9 H (2.5-4.5) mg/dL Magnesium 1.6 (1.6-2.3) mg/dL Total Bilirubin 0.8 (0.2-1.3) mg/dL AST 56 H (14-36) U/L ALT 54 H (4-34) U/L Alkaline Phosphatase 137 H (38-126) U/L Troponin I (0.000-0.034) ng/mL Total Protein 6.1 L (6.3-8.2) g/dL Albumin 3.5 (3.5-5.0) g/dL 01/03/24 01/03/24 Range/Units 11:55 11:55 WBC (3.8-10.6) k/uL RBC (3.80-5.40) m/uL Hgb (11.4-16.0) gm/dL Hct (34.0-46.0) % MCV (80.0-100.0) fL MCH (25.0-35.0) pg MCHC (31.0-37.0) g/dL RDW (11.5-15.5) % Plt Count (150-450) k/uL MPV Neutrophils % % Lymphocytes % % Monocytes % % Eosinophils % % Basophils % % Neutrophils # (1.3-7.7) k/uL Lymphocytes # (1.0-4.8) k/uL Monocytes # (0-1.0) k/uL Eosinophils # (0-0.7) k/uL Basophils # (0-0.2) k/uL Hypochromasia Poikilocytosis Anisocytosis Macrocytosis PT (10.0-12.5) sec INR (<1.2) APTT (22.0-30.0) sec Sodium (137-145) mmol/L Potassium (3.5-5.1) mmol/L Chloride (98-107) mmol/L Carbon Dioxide (22-30) mmol/L Anion Gap mmol/L BUN (7-17) mg/dL Creatinine (0.52-1.04) mg/dL Est GFR (CKD-EPI)AfAm (>60 ml/min/1.73 sqM) Est GFR (CKD-EPI)NonAf (>60 ml/min/1.73 sqM) Glucose (74-99) mg/dL Plasma Lactic Acid Rishi 3.7 H* (0.7-2.0) mmol/L Calcium (8.4-10.2) mg/dL Phosphorus (2.5-4.5) mg/dL Magnesium (1.6-2.3) mg/dL Total Bilirubin (0.2-1.3) mg/dL AST (14-36) U/L ALT (4-34) U/L Alkaline Phosphatase (38-126) U/L Troponin I 0.073 H* (0.000-0.034) ng/mL Total Protein (6.3-8.2) g/dL Albumin (3.5-5.0) g/dL Disposition <Bairon Presley - Last Filed: 01/03/24 11:16> Is patient prescribed a controlled substance at d/c from ED?: No Time of Disposition: 14:05 <Jt Gorman - Last Filed: 01/03/24 14:05> Clinical Impression: Acute kidney injury Disposition: ADMITTED IP TO THIS HOSP Referrals: Jared Wagner MD [Primary Care Provider] - 1-2 days
[2024-01-03 12:21] LABS: INR 1.1 (<1.2); Prothrombin Time 11.7 sec (10.0-12.5)
[2024-01-03 12:37] LABS: ALT 54 U/L (4-34); AST 56 U/L (14-36); African American GFR (CKD) 25 (>60 ml/min/1.73 sqM); Albumin 3.5 g/dL (3.5-5.0); Alkaline Phosphatase 137 U/L (38-126); Anion Gap 13 mmol/L; Blood Urea Nitrogen 33 mg/dL (7-17); Calcium 9.5 mg/dL (8.4-10.2); Carbon Dioxide 22 mmol/L (22-30); Chloride 96 mmol/L (98-107); Glucose 143 mg/dL (74-99); Magnesium 1.6 mg/dL (1.6-2.3); Non-African American GFR(CKD) 22 (>60 ml/min/1.73 sqM); Phosphorus 4.9 mg/dL (2.5-4.5); Potassium 3.9 mmol/L (3.5-5.1); Sodium 131 mmol/L (137-145); Total Bilirubin 0.8 mg/dL (0.2-1.3); Total Protein 6.1 g/dL (6.3-8.2)
[2024-01-03 12:51] LABS: Anisocytosis Slight; Basophils # (A) 0.1 k/uL (0-0.2); Basophils % (A) 1 %; Eosinophils # (A) 0.2 k/uL (0-0.7); Eosinophils % (A) 2 %; HCT 31.6 % (34.0-46.0); HGB 10.4 gm/dL (11.4-16.0); Hypochromasia Slight; Lymphocytes # (A) 0.5 k/uL (1.0-4.8); Lymphocytes % (A) 5 %; MCH 31.2 pg (25.0-35.0); MCHC 32.8 g/dL (31.0-37.0); Macrocytosis Slight; Mean Platelet Volume 7.9; Monocytes # (A) 0.9 k/uL (0-1.0); Monocytes % (A) 9 %; Neutrophils # (A) 7.7 k/uL (1.3-7.7); Neutrophils % (A) 81 %; Platelet Count 196 k/uL (150-450); Poikilocytosis Slight; RBC 3.32 m/uL (3.80-5.40); RDW 18.9 % (11.5-15.5); WBC 9.6 k/uL (3.8-10.6)
--- NOTE | 2024-01-03 13:42 | XR ---
EXAMINATION TYPE: XR chest 2V DATE OF EXAM: 01/03/2024 1:35 PM COMPARISON: Chest radiographs from 07/12/2022, CT chest 10/08/2023 TECHNIQUE: XR chest 2V Frontal and lateral views of the chest. CLINICAL INDICATION:Female, 63 years old with history of Weakness; FINDINGS: Lungs/Pleura: No pleural effusion or pneumothorax. Patchy left midlung airspace opacities. Additional diffuse patchy reticular peripheral opacities. Pulmonary vascularity: Unremarkable. Heart/mediastinum: Cardiomediastinal silhouette is enlarged and stable. Atherosclerotic calcificatio ns are seen in the aorta. Musculoskeletal: Multiple level degenerative disc disease changes seen throughout the spine. IMPRESSION: Patchy left midlung airspace opacities with additional diffuse patchy reticular peripheral opacities. Findings are concerning for pneumonia. [facility], , 01/03/2024 1:40 PM
--- NOTE | 2024-01-03 13:49 | CT ---
EXAMINATION TYPE: CT brain wo con CT DLP: 1127.6 mGycm, Automated exposure control for dose reduction was used. DATE OF EXAM: 01/03/2024 1:35 PM COMPARISON: MRI brain 10/21/2023 CLINICAL INDICATION:Female, 63 years old with history of Left side weakness and dizziness x 3 days, L eft side weakness and dizziness x 3 days TECHNIQUE: Brain: Multiple axial CT images of the brain were obtained without IV contrast. . Coronal and sagitta l reformats reviewed. FINDINGS: Brain: Extra-axial spaces: No abnormal extra-axial fluid collections. Falx calcification demonstrated. Ventricular system: Within normal limits Cerebral parenchyma: Posterior right frontal lobe single 3 mm focus of hyperdensity at site of previo usly seen ring enhancing lesion. The bartholomew-white junction is well differentiated. Scattered hypoattenu ating areas are seen within the periventricular white matter. Cerebellum: Unremarkable. Mass effect: No evidence of midline shift. Intracranial vasculature: Atherosclerotic calcifications of the intracranial vessels. Soft tissues: Normal. Calvarium/osseous structures: No depressed skull fracture. Paranasal sinuses and mastoid air cells: The mastoid air cells are clear. Mild mucosal thickening in the inferior left maxillary sinus. The remaining paranasal sinuses are clear. Visualized orbits: Orbital contents are intact. Bilateral punctate posterior scleral calcifications. IMPRESSION: 1. Single hyperdense focus within the posterior right frontal lobe corresponding to known ring-enhan cing on prior MR. Suspicious for acute microhemorrhage. No evidence of midline shift or significant v asogenic edema. Consider further evaluation with MRI. 2. Nonspecific white matter changes, likely secondary to chronic small vessel ischemic disease. [facility], , 01/03/2024 1:47 PM
[2024-01-03] MEDS ORDERED: NALOXONE 0.4 MG/ML 1 ML VIAL IV PRN (14:05)
[2024-01-03] MEDS ORDERED: PNEUMONIA PROTOCOL UTILIZED 1 EACH MISC PO PRN (14:09)
[2024-01-03] MEDS: SODIUM CHLORIDE 0.9% 1,000 ML IV STA ×2 (15:27→15:28)
[2024-01-03] MEDS: SODIUM CHLORIDE 0.9% 500 ML 500 ML IV STA (15:28)
[2024-01-03] MEDS: SODIUM CHLORIDE 0.9% 1,000 ML IV SCH (15:29)
[2024-01-03] MEDS ORDERED: DEXTROSE 50% SYRINGE 50 ML IVP PRN ×2 (15:52)
--- NOTE | 2024-01-03 16:28 | P.HPIM ---
History of Present Illness H&P Date: 01/03/24 Patient is a 63-year-old female with hypertension, hyperlipidemia, diabetes (controlled with diet), COPD (on home oxygen for 2 L GERD, history of lung CA diagnosed in April 2022 (with history of immunotherapy and radiation being seen by Dr. Manley) and DVT (on Eliquis) who came in for generalized weakness. Patient reported 3 to 4 weeks ago, she began to experience left hip pain that was intermittent dull nonradiating to an intensity of 8 to 7 out of 10 after being admitted for DVT of the left lower extremity. She went to the ER during that time in another facility and was told that it was a muscle sprain that only required bedrest. However, on 12/27 hip pain increased severity of 10 out of 10 and was intolerable which led the patient to seek care in another ED. She was prescribed morphine IM, a muscle relaxer and advised to continue her home tramadol. Her pain was controlled throughout the week but she noticed that she became generally weak with associated lethargy which led her to be wheelchair- bound and could not perform her usual ADLs including eating or drinking. On Sunday 12/31 she also experienced a fall but she was able to catch herself and did not lose consciousness and sat down on the bathroom floor for about an hour. Patient and patient's family decided not to seek care at the time. However, because the weakness was persistent and did not go away, family and patient decided to seek care today. She denied changes in vision, tremors, facial asymmetry, chest pain, shortness of breath, calf tenderness, fever, chills, sweats, dysuria, hematuria, nausea, vomiting, diarrhea, recent travel or recent sick contacts. In the ER, chest x-ray shows left midlung airspace opacities. CT brain shows hyperdense focus on posterior right frontal lobe with suspicion for acute microhemorrhage, no evidence of midline shift or edema. EKG shows sinus rhythm with a rate of [address]-T changes low voltage good R wave progression QTc 422 WBC 9.6 hemoglobin 10.4 MCV 95 platelet count 196 sodium 131 potassium 3.9 chloride 96 bicarb 22 BUN 33 creatinine 2.33 glucose 143 plasma lactic acid 3.7 phosphorus 4.9 AST 56 ALT 54 ALP 137 troponin 0.073 albumin 3.5. On admission, patient was afebrile at 97.5 pulse rate 100 respiratory 20 blood pressure 98/54 O2 saturation 97% Review of systems: Pertinent positives and negatives as discussed in HPI, a complete review of systems was performed and all other systems are negative. Social history: Tobacco: Former smoker quit 8 years ago. Actively smoked for 30 to 40 years of half a pack per day Alcohol: Occasional alcohol intake. Last drink 7 months ago Recreational drugs: Denies illicit drug use Physical examination: Vital signs reviewed General: non toxic, no distress, appears at stated age, on 2 L nasal cannula Derm: no unusual rashes/lesions, warm Head: atraumatic, normocephalic, symmetric Eyes: EOMI, anicteric sclera, pupils equal round reactive to light ENT: Nose and ears atraumatic Neck: No cervical lymphadenopathy, trachea midline, supple Mouth: no lip lesion, mucus membranes moist Cardiovascular: S1S2 reg, no murmur Lungs: Diffuse expiratory wheezes in mid and lower lung farfan no rhonchi, no rales, no accessory muscle use Abdominal: soft, nondistended, nontender to palpation, no guarding Ext: muscle strength 3 out of 5 in proximal and distal left lower extremity, 5 out of 5 strength in proximal and distal right lower extremity and 5 out of 5 on bilateral proximal and distal upper extremities grossly, no gross muscle atrophy, no contractures, positive dorsalis pedis pulse bilateral, no extremity edema Neuro: CN II-XI grossly intact, no gross focal neuro deficit, decreased sensation on bilateral feet up to the dorsum of the feet Psych: Alert and oriented x 3, appropriate affect and mood Assessment/Plan: 63-year-old woman who came in for generalized weakness with recent new medications for left hip pain. Was found to have JENNIFER #. Debility #. JENNIFER prenal vs renal vs postrenal #. Hypovolemic hyponatremia # Acute normocytic anemia IV normal saline boluses initiated in the ED Continue IV fluids 0.9 normal saline 130 cc/h urinalysis renal ultrasound Creatinine kinase trend troponin Monitor BMP, mag, Phos Avoid nephrotoxic agents and medications Consult PT OT #. Left midlung airspace opacities Patient does not have clinical picture for pneumonia Will monitor for now #. Transaminitis AST 56 ALT 54 ALP 137 Monitor CMP #. Right hip pain Acetaminophen 650 mg p.o. every 6 hours as needed Gabapentin 100 mg p.o. 3 times daily #. History of small cell lung cancer diagnosed in April 2022 Heme-onc consulted -Status post lung and brain radiation and chemotherapy Chronic Conditions: #. Yub-uofgyxa-gbewkdcxj type 2 diabetes #. Hyperlipidemia #. COPD on home oxygen #. GERD #. Hypertension #. History of DVT of left lower extremity Insulin sliding scale low-dose less than 70 kg ACHS, monitor for hypoglycemia Accu-Cheks ACHS, A1c in the a.m. Continue albuterol inhaler and Trelegy inhaler Hold Eliquis 5 mg p.o. twice daily, in the setting of possible brain microhemorrhages Hold metformin, amlodipine, aspirin, baclofen, meloxicam and losartan/hydrochlorothiazide F: 0.9 normal saline 130 cc/h E: None N: Renal diet A: Fall precautions needs ambulation support DVT ppx: SCDs Dispo: The patient is admitted with an anticipated greater than 2 midnight stay for evaluation of JENNIFER and generalized weakness Discussed with: Patient and patient's son Anticipated discharge place: Pending clinical course Julianne Owens MD PGY-1 IM Dictation was produced using [employer] dictation software. please excuse any grammatical, word or spelling errors. A total of 65 minutes was spent on the care of this complex patient more than 50% of the time was spent in counseling and care coordination. I have seen and evaluated the patient today. Discussed with the resident and agree with the residents finding and plan as documented in the resident's note. Changes highlighted in blue font. Past Medical History Past Medical History: COPD, Diabetes Mellitus, GERD/Reflux, Hyperlipidemia, Hypertension, Osteoarthritis (OA), Thyroid Disorder Additional Past Medical History / Comment(s): hx hepatitis c with tx., diabetes diet controlled., emphysema, back pain, hx of covid x2 (2019,2021), left lung mass., pt states mild oral thrush and started on nystatin -pt to notify Dr. Efrain BYRD. 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 , LEFT CARPAL TUNNEL RELEASE, LEFT ARTHROSCOPIC KNEE SURGERY., , RIGHT ELBOW SURGERY- (no anesthesia) Past Anesthesia/Blood Transfusion Reactions: No Reported Reaction Additional Past Anesthesia/Blood Transfusion Reaction / Comment(s): no hx of blood transfusion Past Psychological History: Anxiety Smoking Status: Former smoker Past Alcohol Use History: None Reported Past Drug Use History: None Reported - Past Family History Mother Family Medical History: No Reported History Sister(s) Family Medical History: Blood Disorder, Deep Vein Thrombosis (DVT) Additional Family Medical History / Comment(s): LEIDEN FACTOR FIVE Medications and Allergies Home Medications Medication Instructions Recorded Confirmed Type Albuterol Inhaler [Ventolin Hfa 2 puff INHALATION RT-QID PRN 12/04/21 01/03/24 History Inhaler] Gabapentin [Neurontin] 600 mg PO TID 12/04/21 01/03/24 History Levothyroxine Sodium [Synthroid] 88 mcg PO DAILY 12/04/21 01/03/24 History Losartan/Hydrochlorothiazide 1 tab PO DAILY 12/04/21 01/03/24 History [Losartan-Hctz 100-12.5 mg Tab] Meloxicam [Mobic] 15 mg PO DAILY 12/04/21 01/03/24 History amLODIPine [Norvasc] 5 mg PO DAILY 12/04/21 01/03/24 History buPROPion HCL [buPROPion HCL XL] 300 mg PO DAILY 12/04/21 01/03/24 History traMADol HCL 50 mg PO BID PRN 12/04/21 01/03/24 History Aspirin [Adult Low Dose Aspirin EC] 81 mg PO DAILY 04/18/22 01/03/24 History Cholecalciferol [Vitamin D3 (25 50 mcg PO DAILY 04/18/22 01/03/24 History Mcg = 1000 Iu)] Multivit with Calcium,Iron,Min 1 tab PO DAILY 04/18/22 01/03/24 History [Women's Multivitamin] Omeprazole [PriLOSEC] 40 mg PO HS 04/18/22 01/03/24 History Rosuvastatin Calcium 20 mg PO HS 04/18/22 01/03/24 History ALPRAZolam [Xanax] 0.25 mg PO DAILY PRN 01/03/24 01/03/24 History Apixaban [Eliquis] 5 mg PO BID 01/03/24 01/03/24 History Baclofen 5 mg PO TID 01/03/24 01/03/24 History Cetirizine HCl [Zyrtec] 10 mg PO DAILY 01/03/24 01/03/24 History Fluticasone/Umeclidin/Vilanter 1 puff INHALATION RT-DAILY 01/03/24 01/03/24 History [Trelegy Ellipta 100-62.5-25] Mupirocin 2% Oint [Bactroban 2% 1 applic TOPICAL TID 01/03/24 01/03/24 History Oint] Nystatin 100,000 Unit/ml Susp 500,000 ml PO QID 01/03/24 01/03/24 History [Mycostatin Oral Susp] Zinc Gluconate [Zinc] 50 mg PO DAILY 01/03/24 01/03/24 History metFORMIN HCL [Glucophage] 500 mg PO BID 01/03/24 01/03/24 History Allergies Allergy/AdvReac Type Severity Reaction Status Date / Time cefdinir Allergy SORES IN Verified 01/03/24 15:28 MOUTH" Physical Exam Vitals: Vital Signs Temp Pulse Resp BP Pulse Ox 01/03/24 10:52 97.5 F L 100 20 98/54 97 Intake and Output 01/03/24 01/03/24 01/03/24 06:59 14:59 22:59 Other: Weight 81.647 kg Results CBC & Chem 7: 01/03/24 11:55 01/03/24 11:55 Labs: Abnormal Lab Results - Last 24 Hours (Table) 01/03/24 01/03/24 01/03/24 Range/Units 11:55 11:55 11:55 RBC 3.32 L (3.80-5.40) m/uL Hgb 10.4 L (11.4-16.0) gm/dL Hct 31.6 L (34.0-46.0) % RDW 18.9 H (11.5-15.5) % Lymphocytes # 0.5 L (1.0-4.8) k/uL Sodium 131 L (137-145) mmol/L Chloride 96 L (98-107) mmol/L BUN 33 H (7-17) mg/dL Creatinine 2.33 H (0.52-1.04) mg/dL Glucose 143 H (74-99) mg/dL Plasma Lactic Acid Rishi 3.7 H* (0.7-2.0) mmol/L Phosphorus 4.9 H (2.5-4.5) mg/dL AST 56 H (14-36) U/L ALT 54 H (4-34) U/L Alkaline Phosphatase 137 H (38-126) U/L Troponin I (0.000-0.034) ng/mL Total Protein 6.1 L (6.3-8.2) g/dL 01/03/24 Range/Units 11:55 RBC (3.80-5.40) m/uL Hgb (11.4-16.0) gm/dL Hct (34.0-46.0) % RDW (11.5-15.5) % Lymphocytes # (1.0-4.8) k/uL Sodium (137-145) mmol/L Chloride (98-107) mmol/L BUN (7-17) mg/dL Creatinine (0.52-1.04) mg/dL Glucose (74-99) mg/dL Plasma Lactic Acid Rishi (0.7-2.0) mmol/L Phosphorus (2.5-4.5) mg/dL AST (14-36) U/L ALT (4-34) U/L Alkaline Phosphatase (38-126) U/L Troponin I 0.073 H* (0.000-0.034) ng/mL Total Protein (6.3-8.2) g/dL
[2024-01-03] MEDS: AZITHROMYCIN 500 MG in SODIUM CHLORIDE 0.9% 250 ML IVPB STA (17:10)
[2024-01-03 17:47] LABS: Glucose,Whole Blood 90 mg/dL (70-110)
[2024-01-03] MEDS: INSULIN ASPART (NovoLOG) 100 UNIT/ML VIAL SQ SCH (17:49)
[2024-01-03] MEDS: IPRATROPIUM 0.5 MG/2.5 ML NEBU INHALATION SCH (17:59)
[2024-01-03 19:27] LABS: Appearance,Urine Clear (Clear); Bilirubin,Urine Negative (Negative); Blood,Urine Negative (Negative); Color,Urine Light Yellow; Glucose,Urine (UA) Negative (Negative); Ketones,Urine Negative (Negative); Leukocyte Esterase,Urine Negative (Negative); Nitrite,Urine Negative (Negative); Protein,Urine Trace (Negative); Specific Gravity,Urine 1.008 (1.001-1.035); Urobilinogen,Urine <2.0 mg/dL (<2.0)
[2024-01-03] MEDS: SYMBICORT 80-4.5 MCG INHALER INHALATION SCH (20:07)
--- NOTE | 2024-01-03 21:12 | P.CONS ---
History of Present Illness - Reason for Consult Consult date: 01/03/24 lung cancer Requesting physician: Jt Gorman - Chief Complaint weakness - History of Present Illness Patient is a 63 year old female with a significant history of lung cancer. She follows with Dr. Manley. She underwent LLL of lung wedge resection and regional nodes dissection for lung cancer in April/2022,pathology revealed invasive adenocarcinoma,2.2 cm,negative sonya nodes,no visceral invasion,parenchymal margins are negative,pT1c,N0. On surveillance CT scan done in 10/2022,there was a new right mid lung nodule. On 12/07/2022,PET scan revealed suspicious uptake i n left infrahilar and mediastinal nodes but they are normal size. After discussion with Dr Awad,it was decided to repeat CT in short interval. She had a repeat CT chest on 04/04/2023 which showed enlarged 1.9 cm necrotic subcarinal node and 2 small left cervical nodes. On 04/11/2023,PET scan showed uptake in mediastinal node,left cervical nodes and left infrahilar,uptake in left shoulder (she had trauma to it). On 04/17/2023,US guided biopsy on left neck node came back positive for metastatic adenocarcinoma of lung. PDL-1 was 90%,NGS on tissues and liquid biopsy did not show any targetable mutations,has TP53,KRAS (not G12C). On 05/27/2023,she started cisplatin/alimta with concurrent radiation therapy,completed on 07/09/2023. On 08/06/2023,CT chest showed improvement in her disease. On 08/26/2023,she started Imfinzi. On 09/26/2023,brain MRI showed an 8 mm lesion in right frontal lobe. On 09/26/2023,MRI of T and L spine showed degenerative disc disease. On 09/24/2023,CT chest showed evidence of pneumonitis,imfinzi was held. Patient recently has completed steroid taper. She had SBRT to solitary brain lesion in 10/2023. Patient presented to the emergency room for progressing weakness and fatigue over the last 2 days. Patient states has been pain in her left lower back and was thought to have a pulled muscle and followed up with physical therapy. She was prescribed muscle relaxers, and son states since starting muscle relaxers s patient has been having increased fatigue and has been sleeping a lot over the last couple days. Prior to admission patient was unable to care for self and was unable to ambulate with walker, which caused her to present to the emergency room for further evaluation. Upon admission CBC showing WBC 9.6, hemoglobin 10.4, platelets 196,000. Patient was noted to have acute kidney injury with creatinine 2.3, GFR 22. Elevated lactic acid 3.7. Elevated LFTs, bilirubin 0.8. Chest x-ray showing patchy left midlung airspace opacities with additional diffuse patchy reticular peripheral opacities. Azithromycin and Rocephin started for concern for pneumonia. CT brain without contrast showing single hyperdense focus within the posterior right frontal lobe corresponding to known ring-enhancing lesion on prior MRI. Suspicious for acute microhemorrhage. No evidence of midline shift or significant vasogenic edema. At today's visit patient is reporting improvement in symptoms. Denies unilateral weakness, slurred speech facial droop and visual disturbances. She does endorse recent increased cough with mild sputum production. Denies hemoptysis. Denies fever and chills Review of Systems 10 point ROS is negative except as stated in the HPI Past Medical History Past Medical History: COPD, Diabetes Mellitus, GERD/Reflux, Hyperlipidemia, Hypertension, Osteoarthritis (OA), Thyroid Disorder Additional Past Medical History / Comment(s): hx hepatitis c with tx., diabetes diet controlled., emphysema, back pain, hx of covid x2 (2019,2021), left lung mass., pt states mild oral thrush and started on nystatin -pt to notify Dr. Efrain BYRD. 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 , LEFT CARPAL TUNNEL RELEASE, LEFT ARTHROSCOPIC KNEE SURGERY., , RIGHT ELBOW SURGERY- (no anesthesia) Past Anesthesia/Blood Transfusion Reactions: No Reported Reaction Additional Past Anesthesia/Blood Transfusion Reaction / Comm: no hx of blood transfusion Past Psychological History: Anxiety Smoking Status: Former smoker Past Alcohol Use History: None Reported Past Drug Use History: None Reported - Past Family History Mother Family Medical History: No Reported History Sister(s) Family Medical History: Blood Disorder, Deep Vein Thrombosis (DVT) Additional Family Medical History / Comment(s): LEIDEN FACTOR FIVE Medications and Allergies Home Medications Medication Instructions Recorded Confirmed Type Albuterol Inhaler [Ventolin Hfa 2 puff INHALATION RT-QID PRN 12/04/21 01/03/24 History Inhaler] Gabapentin [Neurontin] 600 mg PO TID 12/04/21 01/03/24 History Levothyroxine Sodium [Synthroid] 88 mcg PO DAILY 12/04/21 01/03/24 History Losartan/Hydrochlorothiazide 1 tab PO DAILY 12/04/21 01/03/24 History [Losartan-Hctz 100-12.5 mg Tab] Meloxicam [Mobic] 15 mg PO DAILY 12/04/21 01/03/24 History amLODIPine [Norvasc] 5 mg PO DAILY 12/04/21 01/03/24 History buPROPion HCL [buPROPion HCL XL] 300 mg PO DAILY 12/04/21 01/03/24 History traMADol HCL 50 mg PO BID PRN 12/04/21 01/03/24 History Aspirin [Adult Low Dose Aspirin EC] 81 mg PO DAILY 04/18/22 01/03/24 History Cholecalciferol [Vitamin D3 (25 50 mcg PO DAILY 04/18/22 01/03/24 History Mcg = 1000 Iu)] Multivit with Calcium,Iron,Min 1 tab PO DAILY 04/18/22 01/03/24 History [Women's Multivitamin] Omeprazole [PriLOSEC] 40 mg PO HS 04/18/22 01/03/24 History Rosuvastatin Calcium 20 mg PO HS 04/18/22 01/03/24 History ALPRAZolam [Xanax] 0.25 mg PO DAILY PRN 01/03/24 01/03/24 History Apixaban [Eliquis] 5 mg PO BID 01/03/24 01/03/24 History Baclofen 5 mg PO TID 01/03/24 01/03/24 History Cetirizine HCl [Zyrtec] 10 mg PO DAILY 01/03/24 01/03/24 History Fluticasone/Umeclidin/Vilanter 1 puff INHALATION RT-DAILY 01/03/24 01/03/24 History [Trelegy Ellipta 100-62.5-25] Mupirocin 2% Oint [Bactroban 2% 1 applic TOPICAL TID 01/03/24 01/03/24 History Oint] Nystatin 100,000 Unit/ml Susp 500,000 ml PO QID 01/03/24 01/03/24 History [Mycostatin Oral Susp] Zinc Gluconate [Zinc] 50 mg PO DAILY 01/03/24 01/03/24 History metFORMIN HCL [Glucophage] 500 mg PO BID 01/03/24 01/03/24 History Allergies Allergy/AdvReac Type Severity Reaction Status Date / Time cefdinir Allergy SORES IN Verified 01/03/24 15:28 MOUTH" Physical Exam Vitals: Vital Signs Temp Pulse Resp BP Pulse Ox 01/03/24 17:00 100 17 106/61 98 01/03/24 16:00 72 17 112/67 97 01/03/24 10:52 97.5 F L 100 20 98/54 97 Intake and Output 01/03/24 01/03/24 01/03/24 06:59 14:59 22:59 Other: Weight 81.647 kg - Constitutional General appearance: average body habitus, no acute distress - EENT ENT: hearing grossly normal - Respiratory Respiratory: bilateral: diminished - Cardiovascular Rhythm: regular - Gastrointestinal General gastrointestinal: soft, no tenderness - Integumentary Integumentary: no cyanotic, no jaundiced - Neurologic no focal deficits, generalized weakness - Musculoskeletal Musculoskeletal: generalized weakness - Psychiatric Psychiatric: A&O x's 3 Results CBC & Chem 7: 01/03/24 11:55 01/03/24 11:55 Labs: Abnormal Lab Results - Last 24 Hours (Table) 01/03/24 01/03/24 01/03/24 Range/Units 11:55 11:55 11:55 RBC 3.32 L (3.80-5.40) m/uL Hgb 10.4 L (11.4-16.0) gm/dL Hct 31.6 L (34.0-46.0) % RDW 18.9 H (11.5-15.5) % Lymphocytes # 0.5 L (1.0-4.8) k/uL Sodium 131 L (137-145) mmol/L Chloride 96 L (98-107) mmol/L BUN 33 H (7-17) mg/dL Creatinine 2.33 H (0.52-1.04) mg/dL Glucose 143 H (74-99) mg/dL Plasma Lactic Acid Rishi 3.7 H* (0.7-2.0) mmol/L Phosphorus 4.9 H (2.5-4.5) mg/dL AST 56 H (14-36) U/L ALT 54 H (4-34) U/L Alkaline Phosphatase 137 H (38-126) U/L Creatine Kinase (30-135) U/L Troponin I (0.000-0.034) ng/mL Total Protein 6.1 L (6.3-8.2) g/dL 01/03/24 01/03/24 01/03/24 Range/Units 11:55 15:20 16:38 RBC (3.80-5.40) m/uL Hgb (11.4-16.0) gm/dL Hct (34.0-46.0) % RDW (11.5-15.5) % Lymphocytes # (1.0-4.8) k/uL Sodium (137-145) mmol/L Chloride (98-107) mmol/L BUN (7-17) mg/dL Creatinine (0.52-1.04) mg/dL Glucose (74-99) mg/dL Plasma Lactic Acid Rishi 3.1 H* (0.7-2.0) mmol/L Phosphorus (2.5-4.5) mg/dL AST (14-36) U/L ALT (4-34) U/L Alkaline Phosphatase (38-126) U/L Creatine Kinase 226 H (30-135) U/L Troponin I 0.073 H* (0.000-0.034) ng/mL Total Protein (6.3-8.2) g/dL Chest x-ray: report reviewed CT Scan - head: report reviewed Assessment and Plan (1) Weakness Current Visit: Yes Status: Acute Priority: High Code(s): R53.1 - WEAKNESS SNOMED Code(s): 14275182 (2) Adenocarcinoma, lung Current Visit: No Status: Acute Priority: High Code(s): C34.90 - MALIGNANT NEOPLASM OF UNSP PART OF UNSP BRONCHUS OR LUNG SNOMED Code(s): 844721357 (3) DVT (deep venous thrombosis) Current Visit: No Status: Acute Priority: High Code(s): I82.409 - ACUTE EMBOLISM AND THOMBOS UNSP DEEP VN UNSP LOWER EXTREMITY SNOMED Code(s): 856326950 (4) Acute kidney injury Current Visit: Yes Status: Acute Priority: High Code(s): N17.9 - ACUTE KIDNEY FAILURE, UNSPECIFIED SNOMED Code(s): 77040708 Plan: JENNIFER: On admit creatinine 2.3, GFR 22 -UA negative for UTI -Kidney/bladder US ordered -Fluid boluses given. Continuous hydration ordered DVT: Diagnosed with LLE DVT end of November/2023, started on eliquis. -CT brain showing previously noted single hyperdense focus within the posterior right frontal lobe. Suspicious for acute microhemorrhage. -Due to recent acute DVT and immobilization, pt is at high risk for clot. Discussed with pt that benefits outweigh risks. No focal deficits noted. Recommended to restart Eliquis, she was agreeable to the same. -Will repeat brain CT in the morning to reevaluate. Brain MRI will be obtained once kidney function stable Metastatic lung adenocarcinoma: -History as dictated in HPI -Cycle 2 Imfinzi given on 09/23. Treatment has been delayed due to hospital adm issions and suspected IO r/t pneumonitis. S/p SBRT to solitary brain lesion in 10/2023. -Plan was to have repeat CT chest on 01/05 and clinic f/u to further discuss treatment options and goals of care -Once kidney function improved, will obtain CT chest w/ contrast -CT brain without contrast showing single hyperdense focus within the posterior right frontal lobe corresponding to known ring-enhancing lesion on prior MRI. Suspicious for acute microhemorrhage. No evidence of midline shift or si gnificant vasogenic edema. As above, will obtain brain MRI, once kidney function improved Doctor attests: I performed a history and physical examination of this patient, developed impression and plan of care. Discussed with dictator. I agree with dictators note, documented as a scribe.
[2024-01-03] MEDS: ATORVASTATIN 40 MG TAB PO SCH (21:13)
[2024-01-03] MEDS: APIXABAN 5 MG TAB PO SCH (21:14)
[2024-01-03] MEDS: PANTOPRAZOLE 40 MG TABLET PO SCH (21:14)
[2024-01-03] MEDS: GABAPENTIN 100 MG CAP PO SCH (21:14)
[2024-01-03 22:26] LABS: Glucose,Whole Blood 117 mg/dL (70-110)
--- NOTE | 2024-01-03 22:42 | US ---
EXAMINATION TYPE: US kidneys/renal and bladder DATE OF EXAM: 01/03/2024 COMPARISON: NONE CLINICAL INDICATION: Female, 63 years old with history of tamela; tamela TECHNIQUE: Grayscale imaging of the bilateral kidneys and urinary bladder: FINDINGS: EXAM MEASUREMENTS: Right Kidney: 9.9 x 5.6 x 4.8 cm Left Kidney: 11.7 x 4.0 x 5.0 cm Right Kidney: No hydronephrosis or masses seen Left Kidney: No hydronephrosis or masses seen Bladder: wnl, pt just voided Bilateral Jets seen: No Incidental: GB is filled with sludge There is no evidence for hydronephrosis at this point in time. No nephrolithiasis is seen. No renal masses are identified. The urinary bladder is nondistended. IMPRESSION: No hydronephrosis is seen bilaterally. [facility], , 01/03/2024 10:40 PM
[2024-01-03] MEDS: ZOLPIDEM 5 MG TAB PO PRN (23:38)
[2024-01-03] MEDS: BENZOCAINE/MENTHOL LOZENG 1 EACH LOZENGE MUCOUS MEM PRN (23:38)
[2024-01-04 06:35] LABS: Glucose,Whole Blood 105 mg/dL (70-110)
[2024-01-04] MEDS: LEVOTHYROXINE 88 MCG TAB PO SCH (06:40)
--- NOTE | 2024-01-04 07:54 | XR ---
EXAMINATION TYPE: XR chest 1V portable DATE OF EXAM: 01/04/2024 COMPARISON: 01/03/2024 HISTORY: Pneumonia TECHNIQUE: Single frontal view of the chest is obtained. FINDINGS: There is no change in the focal partially consolidated opacity in the left midlung. There is an increase in the small left pleural effusion. There is diffuse interstitial process in both lungs. IMPRESSION: Marked acute cardiopulmonary disease involving both lungs with mild interval worsening i n the left lung as described above. [facility], Workstation: [email or web address] 01/04/2024 7:52 AM
[2024-01-04] MEDS ORDERED: NON FORMULARY DRUG (Fluticasone/Umeclidin/Vilanter [Trelegy Ellipta 100-62.5-25] 1 EACH Bl INHALATION SCH (08:00)
--- NOTE | 2024-01-04 08:45 | NM ---
EXAMINATION TYPE: NM pul vent and perfuse DATE OF EXAM: 01/04/2024 CLINICAL INDICATION: Female, 63 years old with history of r/o PE; COMPARISON: NONE TECHNIQUE: Utilizing inhalation of 38.8 mCi Tc 99m DTPA aerosol and intravenous injection of 5.35 mC i of Tc 99m MAA, ventilation and perfusion images are acquired post injection in multiple projections . FINDINGS: There are multiple large matched ventilation and perfusion defects in both lungs IMPRESSION: Indeterminate for pulmonary embolism. Findings likely related to chronic lung disease. [facility], Workstation: [email or web address] 01/04/2024 8:43 AM
[2024-01-04] MEDS ORDERED: AZITHROMYCIN 500 MG TAB PO SCH (09:00)
--- NOTE | 2024-01-04 09:09 | CT ---
EXAMINATION TYPE: CT brain wo con DATE OF EXAM: 01/04/2024 COMPARISON: 01/03/2024 CLINICAL INDICATION: Female, 63 years old with history of reevaluate noted microhemorrhages, on Eliqu is; [facility], Re evaluate noted microhemorrages, on Eliquis CT DLP: 1154.4 mGycm Automated exposure control for dose reduction was used. Findings: The ventricles, basal cisterns and sulci over the convexities are within normal limits and there is n o mass effect or shift of midline structures. The small focal 2-3 mm area of increased density in the posterior right frontal white matter is again seen and is essentially unchanged. No new abnormality seen. The posterior fossa including the brainstem, fourth ventricle and cerebellar pontine angles appear no rmal. Intraorbital contents appear normal and symmetric. There are persistent mild chronic inflammatory changes in the ethmoid and maxillary sinuses. There is a suggestion of air-fluid level in the left maxillary sinus possibly indicating acute sinusitis supe rimposed on mild chronic sinusitis. The mastoid air cells are well aerated The calvarium is intact. IMPRESSION: 1. No change in the small focus of increased density in the posterior right frontal white matter. Cou ld represent a small microhemorrhage unchanged. Correlate with MRI of the brain. 2. Sinus disease as described above. 3. No new mass effect or shift of the midline structures [facility], , 01/04/2024 9:06 AM
[2024-01-04] MEDS: buPROPion XL 300 MG TAB.ER.24H PO SCH (09:29)
[2024-01-04] MEDS: traMADol 50 MG TAB PO PRN (09:42)
[2024-01-04 10:41] LABS: Anisocytosis Slight; Basophils % (A) 0 %; Eosinophils # (A) 0.2 k/uL (0-0.7); Eosinophils % (A) 2 %; HCT 27.9 % (34.0-46.0); HGB 9.2 gm/dL (11.4-16.0); Hypochromasia Slight; Lymphocytes # (A) 0.4 k/uL (1.0-4.8); Lymphocytes % (A) 6 %; MCH 31.8 pg (25.0-35.0); MCHC 33.1 g/dL (31.0-37.0); MCV 96.1 fL (80.0-100.0); Macrocytosis Slight; Mean Platelet Volume 7.5; Monocytes # (A) 0.5 k/uL (0-1.0); Monocytes % (A) 8 %; Neutrophils # (A) 5.7 k/uL (1.3-7.7); Neutrophils % (A) 81 %; Platelet Count 166 k/uL (150-450); Poikilocytosis Slight; RDW 18.7 % (11.5-15.5)
[2024-01-04 11:08] LABS: ALT 51 U/L (4-34); AST 51 U/L (14-36); African American GFR (CKD) 64 (>60 ml/min/1.73 sqM); Albumin 2.7 g/dL (3.5-5.0); Alkaline Phosphatase 130 U/L (38-126); Anion Gap 3 mmol/L; Blood Urea Nitrogen 18 mg/dL (7-17); Calcium 8.9 mg/dL (8.4-10.2); Carbon Dioxide 26 mmol/L (22-30); Chloride 107 mmol/L (98-107); Glucose 105 mg/dL (74-99); Magnesium 1.3 mg/dL (1.6-2.3); Non-African American GFR(CKD) 55 (>60 ml/min/1.73 sqM); Phosphorus 3.5 mg/dL (2.5-4.5); Potassium 3.3 mmol/L (3.5-5.1); Sodium 136 mmol/L (137-145); Total Bilirubin 0.7 mg/dL (0.2-1.3); Total Protein 5.2 g/dL (6.3-8.2)
[2024-01-04 11:51] LABS: Glucose,Whole Blood 105 mg/dL (70-110)
[2024-01-04] MEDS: AZITHROMYCIN 500 MG TAB PO SCH (12:11)
--- NOTE | 2024-01-04 13:50 | P.PN ---
Subjective Progress Note Date: 01/04/24 Principal diagnosis: Metastatic non-small cell lung cancer -Afebrile, no acute events overnight -Notes that have continued congestion and sore throat along with myalgias and malaise secondary to URI prior to admission -She denies any confusion, headaches, blurry vision, or other focal neurologic deficits Objective - Vital Signs Vital signs: Vital Signs Temp 97.3 F L 01/04/24 08:00 Pulse 98 01/04/24 08:00 Resp 18 01/04/24 08:00 BP 93/57 01/04/24 08:00 Pulse Ox 99 01/04/24 08:00 FiO2 Intake & Output 01/03/24 01/04/24 01/04/24 18:59 06:59 18:59 Intake Total 180 Output Total 900 Balance -900 180 Weight 81.647 kg 83.5 kg Intake: Oral 180 Output: Urine 900 Other: Voiding Method External Catheter External Catheter # Voids 2 - Constitutional Constitutional Comment(s): Fatigued appearing General appearance: Present: cooperative, no acute distress - EENT Eyes: Present: EOMI - Respiratory Details: Nonlabored breathing - Cardiovascular Details: Warm and well-perfused - Gastrointestinal General gastrointestinal: Present: soft. Absent: distended - Integumentary Integumentary: Present: pale - Neurologic Neurologic: Present: CNII-XII intact. Absent: focal deficits - Labs CBC & Chem 7: 01/04/24 10:15 01/04/24 10:15 Labs: Abnormal Lab Results - Last 24 Hours (Table) 01/03/24 01/03/24 01/03/24 Range/Units 15:20 16:38 17:06 RBC (3.80-5.40) m/uL Hgb (11.4-16.0) gm/dL Hct (34.0-46.0) % RDW (11.5-15.5) % Lymphocytes # (1.0-4.8) k/uL D-Dimer (<0.60) mg/L FEU Sodium (137-145) mmol/L Potassium (3.5-5.1) mmol/L BUN (7-17) mg/dL Creatinine (0.52-1.04) mg/dL Glucose (74-99) mg/dL POC Glucose (mg/dL) (70-110) mg/dL Hemoglobin A1c (<=6.0) % Plasma Lactic Acid Rishi 3.1 H* (0.7-2.0) mmol/L Magnesium (1.6-2.3) mg/dL AST (14-36) U/L ALT (4-34) U/L Alkaline Phosphatase (38-126) U/L Creatine Kinase 226 H (30-135) U/L Troponin I (0.000-0.034) ng/mL Total Protein (6.3-8.2) g/dL Albumin (3.5-5.0) g/dL Urine Protein Trace H (Negative) 01/03/24 01/03/24 01/03/24 Range/Units 19:55 22:10 22:24 RBC (3.80-5.40) m/uL Hgb (11.4-16.0) gm/dL Hct (34.0-46.0) % RDW (11.5-15.5) % Lymphocytes # (1.0-4.8) k/uL D-Dimer 6.62 H (<0.60) mg/L FEU Sodium (137-145) mmol/L Potassium (3.5-5.1) mmol/L BUN (7-17) mg/dL Creatinine (0.52-1.04) mg/dL Glucose (74-99) mg/dL POC Glucose (mg/dL) 117 H (70-110) mg/dL Hemoglobin A1c (<=6.0) % Plasma Lactic Acid Rishi (0.7-2.0) mmol/L Magnesium (1.6-2.3) mg/dL AST (14-36) U/L ALT (4-34) U/L Alkaline Phosphatase (38-126) U/L Creatine Kinase (30-135) U/L Troponin I 0.093 H* (0.000-0.034) ng/mL Total Protein (6.3-8.2) g/dL Albumin (3.5-5.0) g/dL Urine Protein (Negative) 01/04/24 01/04/24 01/04/24 Range/Units 10:15 10:15 10:15 RBC 2.90 L (3.80-5.40) m/uL Hgb 9.2 L (11.4-16.0) gm/dL Hct 27.9 L (34.0-46.0) % RDW 18.7 H (11.5-15.5) % Lymphocytes # 0.4 L (1.0-4.8) k/uL D-Dimer (<0.60) mg/L FEU Sodium 136 L (137-145) mmol/L Potassium 3.3 L (3.5-5.1) mmol/L BUN 18 H (7-17) mg/dL Creatinine 1.07 H (0.52-1.04) mg/dL Glucose 105 H (74-99) mg/dL POC Glucose (mg/dL) (70-110) mg/dL Hemoglobin A1c 7.6 H (<=6.0) % Plasma Lactic Acid Rishi (0.7-2.0) mmol/L Magnesium 1.3 L (1.6-2.3) mg/dL AST 51 H (14-36) U/L ALT 51 H (4-34) U/L Alkaline Phosphatase 130 H (38-126) U/L Creatine Kinase (30-135) U/L Troponin I (0.000-0.034) ng/mL Total Protein 5.2 L (6.3-8.2) g/dL Albumin 2.7 L (3.5-5.0) g/dL Urine Protein (Negative) Assessment and Plan (1) Acute kidney injury Current Visit: Yes Status: Acute Priority: High Code(s): N17.9 - ACUTE KIDNEY FAILURE, UNSPECIFIED SNOMED Code(s): 63188580 (2) Adenocarcinoma, lung Current Visit: No Status: Acute Priority: High Code(s): C34.90 - MALIGNANT NEOPLASM OF UNSP PART OF UNSP BRONCHUS OR LUNG SNOMED Code(s): 600183413 (3) DVT (deep venous thrombosis) Current Visit: No Status: Acute Priority: High Code(s): I82.409 - ACUTE EMBOLISM AND THOMBOS UNSP DEEP VN UNSP LOWER EXTREMITY SNOMED Code(s): 033647413 Plan: JENNIFER: On admit creatinine 2.3, GFR 22 -UA negative for UTI -Kidney/bladder ultrasound revealed no evidence of hydronephrosis -Significant improvement in creatinine today at 1.07 -She likely had prerenal JENNIFER secondary to dehydration and decreased oral intake from URI -Continuous hydration ordered per primary team DVT: Diagnosed with LLE DVT end of November/2023, started on eliquis. -CT brain showing previously noted single hyperdense focus within the posterior right frontal lobe. Suspicious for acute microhemorrhage. -Due to recent acute DVT and immobilization, pt is at high risk for clot. Discussed with pt that benefits outweigh risks. No focal deficits noted. Recommended to restart Eliquis, she was agreeable to the same. -Repeat CT of the brain performed this a.m. reveals stable lesion in the posterior right frontal lobe. This likely was a lesion that received SBRT treatment previously -She is safe to continue therapeutic Eliquis at this time -Brain MRI as kidney function continues to improve Metastatic lung adenocarcinoma: -History as dictated in HPI -Cycle 2 Imfinzi given on 09/23. Treatment has been delayed due to hospital admissions and suspected IO r/t pneumonitis. S/p SBRT to solitary brain lesion in 10/2023. -Plan was to have repeat CT chest on 01/05 and clinic f/u to further discuss treatment options and goals of care -Once kidney function improved, will obtain CT chest w/ contrast -CT brain without contrast showing single hyperdense focus within the posterior right frontal lobe corresponding to known ring-enhancing lesion on prior MRI. No evidence of midline shift or significant vasogenic edema -Brain MRI for additional assessment as above Hina Bedolla MD Time with Patient: Less than 30
--- NOTE | 2024-01-04 14:33 | P.PN ---
Subjective Progress Note Date: 01/04/24 Patient is a 63-year-old female with hypertension, hyperlipidemia, diabetes (controlled with diet), COPD (on home oxygen for 2 L GERD, history of lung CA diagnosed in April 2022 (with history of immunotherapy and radiation being seen by Dr. Manley) and DVT (on Eliquis) who came in for generalized weakness. Patient reported 3 to 4 weeks ago, she began to experience left hip pain that was intermittent dull nonradiating to an intensity of 8 to 7 out of 10 after being admitted for DVT of the left lower extremity. She went to the ER during that time in another facility and was told that it was a muscle sprain that only required bedrest. However, on 12/27 hip pain increased severity of 10 out of 10 and was intolerable which led the patient to seek care in another ED. She was prescribed morphine IM, a muscle relaxer and advised to continue her home tramadol. Her pain was controlled throughout the week but she noticed that she became generally weak with associated lethargy which led her to be wheelchair- bound and could not perform her usual ADLs including eating or drinking. On Sunday 12/31 she also experienced a fall but she was able to catch herself and did not lose consciousness and sat down on the bathroom floor for about an hour. Patient and patient's family decided not to seek care at the time. However, because the weakness was persistent and did not go away, family and patient decided to seek care today. She denied changes in vision, tremors, facial asymmetry, chest pain, shortness of breath, calf tenderness, fever, chills, sweats, dysuria, hematuria, nausea, vomiting, diarrhea, recent travel or recent sick contacts. In the ER, chest x-ray shows left midlung airspace opacities. CT brain shows hyperdense focus on posterior right frontal lobe with suspicion for acute microhemorrhage, no evidence of midline shift or edema. EKG shows sinus rhythm with a rate of [address]-T changes low voltage good R wave progression QTc 422 WBC 9.6 hemoglobin 10.4 MCV 95 platelet count 196 sodium 131 potassium 3.9 chloride 96 bicarb 22 BUN 33 creatinine 2.33 glucose 143 plasma lactic acid 3.7 phosphorus 4.9 AST 56 ALT 54 ALP 137 troponin 0.073 albumin 3.5. On admission, patient was afebrile at 97.5 pulse rate 100 respiratory 20 blood pressure 98/54 O2 saturation 97% 01/04/2024 patient seen and examined at bedside. Patient reported that she has a cough that is productive with a sore throat. Overnight her troponin increased from 0.07-0.09 with no chest pain but noted increased oxygen demand and tachycardia. Repeat CT of the brain shows no change. V/q. perfusion scan done shows indeterminate for pulmonary embolism and findings are more likely related to chronic lung disease. Chest x-ray independently interpreted shows lungs with mild interval worsening of the focal opacities. WBC 7 hemoglobin 9.2 MCV 96 platelet count 166,000 sodium 136 potassium 3.3 BUN 18 creatinine 1.07 glucose 105 A1c 7.6 calcium 8.9 phosphorus 3.5 magnesium 1.3 AST 51 ALT 51 alk phos 130 albumin 2.7 Review of systems: Pertinent positives and negatives as discussed in HPI, a complete review of systems was performed and all other systems are negative. Pertinent imaging and labs reviewed. Physical examination: Vital signs reviewed General: non toxic, no distress, on 4 L nasal cannula Derm: no unusual rashes/lesions, warm Head: atraumatic, normocephalic, symmetric Eyes: EOMI, anicteric sclera, pupils equal round reactive to light ENT: Nose and ears atraumatic Neck: No cervical lymphadenopathy, trachea midline, supple Mouth: no lip lesion, mucus membranes moist, some mild erythema of the throat Cardiovascular: S1S2 reg, no murmur Lungs: CTA bilateral, no rhonchi, no rales, no accessory muscle use Abdominal: soft, nontender to palpation, no guarding Ext: muscle strength 5 out of 5 in all 4 extremities grossly, no gross muscle atrophy, no contractures, positive dorsalis pedis pulse bilateral, no extremity edema Neuro: CN II-XI grossly intact, no gross focal neuro deficits Psych: Alert and oriented x3, appropriate affect and mood Assessment/Plan: 63-year-old woman who came in for generalized weakness with recent new medications for left hip pain. Was found to have JENNIFER #. Debility #. JENNIFER prenal, improving #. Hypovolemic hyponatremia, improving #. Acute normocytic anemia IV normal saline boluses initiated in the ED Continue IV fluids 0.9 normal saline 130 cc/h urinalysis shows only trace protein renal ultrasound showed no hydronephrosis Creatinine kinase 226 Troponin flat Monitor BMP, mag, Phos Avoid nephrotoxic agents and medications Consult PT OT #. Community-acquired pneumonia Patient developed a productive cough cough and sore throat. Repeated chest x- ray left midlung airspace opacities Initiated Rocephin IVPB daily for 4 days and azithromycin 500 mg IVP daily for 2 days Blood cultures pending #. Transaminitis AST 51 ALT 51 alk phos 130. Patient not experiencing any right upper quadrant pain Monitor CMP #. Hypokalemia #. Hypomagnesemia Potassium 3.3 magnesium 1.3 Replete K and mag. Check repeat K and mag after 4 hours #. Right hip pain Acetaminophen 650 mg p.o. every 6 hours as needed Gabapentin 100 mg p.o. 3 times daily #. History of small cell lung cancer diagnosed in April 2022 Heme-onc following -Status post lung and brain radiation and chemotherapy Chronic Conditions: #. Hpz-oylkaoc-xqqaahivn type 2 diabetes, controlled #. Hyperlipidemia #. COPD on home oxygen #. GERD #. Hypertension #. History of DVT of left lower extremity Insulin sliding scale low-dose less than 70 kg ACHS, monitor for hypoglycemia Accu-Cheks ACHS A1c 7.6 Continue albuterol inhaler and Trelegy inhaler Hold Eliquis 5 mg p.o. twice daily, in the setting of possible brain microhemorrhages Hold metformin, amlodipine, aspirin, baclofen, meloxicam and losartan/hydrochlorothiazide F: 0.9 normal saline 130 cc/h E: Magnesium 2 g and potassium 40 mEq N: Renal diet A: Fall precautions needs ambulation support DVT ppx: SCDs Dispo: The patient is admitted with an anticipated greater than 2 midnight stay for evaluation of JENNIFER and generalized weakness Julianne Owens MD PGY-1/Limited Radiology Technician Dictation was produced using [employer] dictation software. please excuse any grammatical, word or spelling errors. I have seen and evaluated the patient today. Discussed with the resident and agree with the residents finding and plan as documented in the resident's note. Changes highlighted in blue font. Objective - Vital Signs Vital signs: Vital Signs Temp 98.5 F 01/04/24 04:00 Pulse 108 H 01/04/24 04:00 Resp 20 01/04/24 04:00 BP 108/71 01/04/24 04:00 Pulse Ox 95 01/04/24 04:00 FiO2 Intake & Output 01/03/24 01/04/24 01/04/24 18:59 06:59 18:59 Output Total 900 Balance -900 Weight 81.647 kg 83.5 kg Output: Urine 900 Other: Voiding Method External Catheter - Labs CBC & Chem 7: 01/04/24 10:15 01/04/24 10:15 Labs: Abnormal Lab Results - Last 24 Hours (Table) 01/03/24 01/03/24 01/03/24 Range/Units 11:55 11:55 11:55 RBC 3.32 L (3.80-5.40) m/uL Hgb 10.4 L (11.4-16.0) gm/dL Hct 31.6 L (34.0-46.0) % RDW 18.9 H (11.5-15.5) % Lymphocytes # 0.5 L (1.0-4.8) k/uL D-Dimer (<0.60) mg/L FEU Sodium 131 L (137-145) mmol/L Chloride 96 L (98-107) mmol/L BUN 33 H (7-17) mg/dL Creatinine 2.33 H (0.52-1.04) mg/dL Glucose 143 H (74-99) mg/dL POC Glucose (mg/dL) (70-110) mg/dL Plasma Lactic Acid Rishi 3.7 H* (0.7-2.0) mmol/L Phosphorus 4.9 H (2.5-4.5) mg/dL AST 56 H (14-36) U/L ALT 54 H (4-34) U/L Alkaline Phosphatase 137 H (38-126) U/L Creatine Kinase (30-135) U/L Troponin I (0.000-0.034) ng/mL Total Protein 6.1 L (6.3-8.2) g/dL Urine Protein (Negative) 01/03/24 01/03/24 01/03/24 Range/Units 11:55 15:20 16:38 RBC (3.80-5.40) m/uL Hgb (11.4-16.0) gm/dL Hct (34.0-46.0) % RDW (11.5-15.5) % Lymphocytes # (1.0-4.8) k/uL D-Dimer (<0.60) mg/L FEU Sodium (137-145) mmol/L Chloride (98-107) mmol/L BUN (7-17) mg/dL Creatinine (0.52-1.04) mg/dL Glucose (74-99) mg/dL POC Glucose (mg/dL) (70-110) mg/dL Plasma Lactic Acid Rishi 3.1 H* (0.7-2.0) mmol/L Phosphorus (2.5-4.5) mg/dL AST (14-36) U/L ALT (4-34) U/L Alkaline Phosphatase (38-126) U/L Creatine Kinase 226 H (30-135) U/L Troponin I 0.073 H* (0.000-0.034) ng/mL Total Protein (6.3-8.2) g/dL Urine Protein (Negative) 01/03/24 01/03/24 01/03/24 Range/Units 17:06 19:55 22:10 RBC (3.80-5.40) m/uL Hgb (11.4-16.0) gm/dL Hct (34.0-46.0) % RDW (11.5-15.5) % Lymphocytes # (1.0-4.8) k/uL D-Dimer 6.62 H (<0.60) mg/L FEU Sodium (137-145) mmol/L Chloride (98-107) mmol/L BUN (7-17) mg/dL Creatinine (0.52-1.04) mg/dL Glucose (74-99) mg/dL POC Glucose (mg/dL) (70-110) mg/dL Plasma Lactic Acid Rishi (0.7-2.0) mmol/L Phosphorus (2.5-4.5) mg/dL AST (14-36) U/L ALT (4-34) U/L Alkaline Phosphatase (38-126) U/L Creatine Kinase (30-135) U/L Troponin I 0.093 H* (0.000-0.034) ng/mL Total Protein (6.3-8.2) g/dL Urine Protein Trace H (Negative) 01/03/24 Range/Units 22:24 RBC (3.80-5.40) m/uL Hgb (11.4-16.0) gm/dL Hct (34.0-46.0) % RDW (11.5-15.5) % Lymphocytes # (1.0-4.8) k/uL D-Dimer (<0.60) mg/L FEU Sodium (137-145) mmol/L Chloride (98-107) mmol/L BUN (7-17) mg/dL Creatinine (0.52-1.04) mg/dL Glucose (74-99) mg/dL POC Glucose (mg/dL) 117 H (70-110) mg/dL Plasma Lactic Acid Rishi (0.7-2.0) mmol/L Phosphorus (2.5-4.5) mg/dL AST (14-36) U/L ALT (4-34) U/L Alkaline Phosphatase (38-126) U/L Creatine Kinase (30-135) U/L Troponin I (0.000-0.034) ng/mL Total Protein (6.3-8.2) g/dL Urine Protein (Negative)
[2024-01-04] MEDS: POTASSIUM CHLORIDE ER 20 MEQ TAB.ER PO STA (15:24)
[2024-01-04] MEDS: MAGNESIUM SULFATE-D5W PMX 1 GM in DEXTROSE/WATER 1 100ML.BAG IVPB SCH (15:24)
[2024-01-04] MEDS: ACETAMINOPHEN TAB 325 MG TAB PO PRN (15:28)
[2024-01-04 16:32] LABS: Glucose,Whole Blood 157 mg/dL (70-110)
[2024-01-04 19:58] LABS: Magnesium 2.1 mg/dL (1.6-2.3); Potassium 3.8 mmol/L (3.5-5.1)
[2024-01-04 20:08] LABS: Glucose,Whole Blood 108 mg/dL (70-110)
[2024-01-05] MEDS: traMADol 50 MG TAB PO PRN (04:32)
[2024-01-05 06:16] LABS: Glucose,Whole Blood 106 mg/dL (70-110)
[2024-01-05] MEDS: HYDROmorphone 0.5 MG/0.5 ML SYRINGE IVP PRN (08:20)
--- NOTE | 2024-01-05 08:39 | XR ---
EXAMINATION TYPE: XR chest 1V DATE OF EXAM: 01/05/2024 COMPARISON: 01/04/2024 HISTORY: Shortness of breath TECHNIQUE: Single frontal view of the chest is obtained. FINDINGS: The diffuse interstitial opacity and scattered focal opacities are essentially unchanged c ompared to the prior study. There is a probable small left effusion. No pneumothorax. IMPRESSION: Marked acute cardiopulmonary disease with no interval change as described above. [facility], , 01/05/2024 8:36 AM
[2024-01-05 10:56] LABS: Anisocytosis Slight; Basophils % (A) 0 %; Eosinophils # (A) 0.2 k/uL (0-0.7); Eosinophils % (A) 3 %; HCT 27.8 % (34.0-46.0); HGB 9.3 gm/dL (11.4-16.0); Hypochromasia Slight; Lymphocytes # (A) 0.3 k/uL (1.0-4.8); Lymphocytes % (A) 5 %; MCHC 33.5 g/dL (31.0-37.0); MCV 95.3 fL (80.0-100.0); Macrocytosis Slight; Mean Platelet Volume 7.5; Monocytes # (A) 0.5 k/uL (0-1.0); Monocytes % (A) 8 %; Neutrophils # (A) 5.5 k/uL (1.3-7.7); Neutrophils % (A) 82 %; Platelet Count 152 k/uL (150-450); RBC 2.92 m/uL (3.80-5.40); RDW 18.2 % (11.5-15.5); WBC 6.7 k/uL (3.8-10.6)
--- NOTE | 2024-01-05 11:19 | P.CNPUL ---
History of Present Illness Consult date: 01/05/24 Requesting physician: Derek Pérez Reason for consult: dyspnea, COPD, pneumonia, abnormal CXR/CT Chief complaint: Weakness. History of present illness: Pulmonary consult dated January 05, 2024. 63-year-old female who was seen in the emergency department, January 02. The patient apparently came in with left-sided weakness, for 3 days. She apparently was having a poor balance, difficulty concentrating, and dizziness, which is why she came into the emergency room. The patient also apparently recently sustained a fall. The patient is on Eliquis. The patient has a history of lung cancer, and sees Dr. Manley for this. Other medical history includes COPD, diabetes, acid reflux disease, hyperlipidemia, hypertension, hypothyroidism, hepatitis C, and lung cancer. Chest x-ray shows some patchy left midlung airspace disease, potentially consistent with pneumonia. CT scan of the brain showed a single hyperdense focus within the posterior right frontal lobe, potentially concerning for microhemorrhage. A pulmonary ventilation/perfusion lung scan, was indeterminate for pulmonary embolism, and likely related to chronic lung disease. Current labs include a white count 6.7, hemoglobin 9.3, hematocrit 27.8, and platelet count of 152,000. Sodium 136, potassium 3.8, chlorides 107, CO2 26, BUN 18, creatinine 1.07. The patient's procalcitonin level was normal at 0.37. Glucose is 106. Urinary Legionella antigen, was negative. UA was negative. Review of Systems REVIEW OF SYSTEMS: CONSTITUTIONAL: [Negative.] NEUROLOGIC: Left-sided weakness. Dizziness, loss of balance. HEENT: [ Negative.] CARDIAC: [Negative.] PULMONARY: Chronic shortness of breath on activity. GI: [Negative.] : [Negative.] RHEUMATOLOGIC: [ Negative.] IMMUNOLOGIC: [ Negative.] ENDOCRINE: [Negative. ] DERMATOLOGIC: [Negative.] Past Medical History Past Medical History: COPD, Diabetes Mellitus, GERD/Reflux, Hyperlipidemia, Hypertension, Osteoarthritis (OA), Thyroid Disorder Additional Past Medical History / Comment(s): hx hepatitis c with tx., diabetes diet controlled., emphysema, back pain, hx of covid x2 (2019,2021), left lung mass., pt states mild oral thrush and started on nystatin -pt to notify Dr. Efrain BYRD. 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 , LEFT CARPAL TUNNEL RELEASE, LEFT ARTHROSCOPIC KNEE SURGERY., , RIGHT ELBOW SURGERY- (no anesthesia) Past Anesthesia/Blood Transfusion Reactions: No Reported Reaction Additional Past Anesthesia/Blood Transfusion Reaction / Comment(s): no hx of blood transfusion Past Psychological History: Anxiety Smoking Status: Former smoker Past Alcohol Use History: None Reported Additional Past Alcohol Use History / Comment(s): QUIT SMOKING 2016., STARTED SMOKING AGE 18., SMOKED 1/2PPD Past Drug Use History: None Reported - Past Family History Mother Family Medical History: No Reported History Sister(s) Family Medical History: Blood Disorder, Deep Vein Thrombosis (DVT) Additional Family Medical History / Comment(s): LEIDEN FACTOR FIVE Medications and Allergies Home Medications Medication Instructions Recorded Confirmed Type Albuterol Inhaler [Ventolin Hfa 2 puff INHALATION RT-QID PRN 12/04/21 01/03/24 History Inhaler] Gabapentin [Neurontin] 600 mg PO TID 12/04/21 01/03/24 History Levothyroxine Sodium [Synthroid] 88 mcg PO DAILY 12/04/21 01/03/24 History Losartan/Hydrochlorothiazide 1 tab PO DAILY 12/04/21 01/03/24 History [Losartan-Hctz 100-12.5 mg Tab] Meloxicam [Mobic] 15 mg PO DAILY 12/04/21 01/03/24 History amLODIPine [Norvasc] 5 mg PO DAILY 12/04/21 01/03/24 History buPROPion HCL [buPROPion HCL XL] 300 mg PO DAILY 12/04/21 01/03/24 History traMADol HCL 50 mg PO BID PRN 12/04/21 01/03/24 History Aspirin [Adult Low Dose Aspirin EC] 81 mg PO DAILY 04/18/22 01/03/24 History Cholecalciferol [Vitamin D3 (25 50 mcg PO DAILY 04/18/22 01/03/24 History Mcg = 1000 Iu)] Multivit with Calcium,Iron,Min 1 tab PO DAILY 04/18/22 01/03/24 History [Women's Multivitamin] Omeprazole [PriLOSEC] 40 mg PO HS 04/18/22 01/03/24 History Rosuvastatin Calcium 20 mg PO HS 04/18/22 01/03/24 History ALPRAZolam [Xanax] 0.25 mg PO DAILY PRN 01/03/24 01/03/24 History Apixaban [Eliquis] 5 mg PO BID 01/03/24 01/03/24 History Baclofen 5 mg PO TID 01/03/24 01/03/24 History Cetirizine HCl [Zyrtec] 10 mg PO DAILY 01/03/24 01/03/24 History Fluticasone/Umeclidin/Vilanter 1 puff INHALATION RT-DAILY 01/03/24 01/03/24 History [Trelegy Ellipta 100-62.5-25] Mupirocin 2% Oint [Bactroban 2% 1 applic TOPICAL TID 01/03/24 01/03/24 History Oint] Nystatin 100,000 Unit/ml Susp 500,000 ml PO QID 01/03/24 01/03/24 History [Mycostatin Oral Susp] Zinc Gluconate [Zinc] 50 mg PO DAILY 01/03/24 01/03/24 History metFORMIN HCL [Glucophage] 500 mg PO BID 01/03/24 01/03/24 History Allergies Allergy/AdvReac Type Severity Reaction Status Date / Time cefdinir Allergy SORES IN Verified 01/03/24 15:28 MOUTH" Physical Exam Osteopathic Statement: *. No significant issues noted on an osteopathic structural exam other than those noted in the History and Physical/Consult. Vitals: Vital Signs Temp Pulse Pulse Resp BP BP Pulse Ox 01/05/24 08:15 95 01/05/24 08:14 110 H 01/05/24 08:03 108 H 01/05/24 08:00 106 H 20 141/74 80 L 01/05/24 04:00 98.4 F 108 H 19 125/73 93 L 01/05/24 02:00 92 20 01/05/24 00:00 98.3 F 92 19 97/63 98 01/04/24 20:00 98.8 F 98 20 111/74 96 01/04/24 16:00 100.3 F H 102 H 18 103/58 98 01/04/24 14:00 104 H 18 01/04/24 12:00 97.5 F L 104 H 18 102/56 97 Intake and Output 01/04/24 01/05/24 01/05/24 22:59 06:59 14:59 Intake Total 50 Output Total 1425 500 Balance -1425 -500 50 Intake: Oral 50 Output: Urine 1425 500 Other: Voiding Method External Catheter External Catheter External Catheter Weight 81.5 kg No acute distress, oriented 3. Patient is currently on 4 L nasal cannula. HEENT examination is grossly unremarkable. Neck supple. Full range of motion. No adenopathy thyromegaly or neck vein distention. Cardiovascular examination reveals regular rhythm rate. S1-S2 normal. No S3 or S4. No discernible murmur noted. Lungs reveal scattered bilateral mild/moderate expiratory wheezes and rhonchi. No crackles. Breath sounds equal bilaterally. Abdomen soft bowel sounds are heard. No masses or tenderness. Extremities are intact. No cyanosis clubbing or edema. Skin is without rash or lesion. Neurologic examination reveals mild left-sided weakness. Results - Laboratory Findings CBC and BMP: 01/05/24 09:39 01/04/24 19:08 PT/INR, D-dimer PT 11.7 sec (10.0-12.5) 01/03/24 11:55 INR 1.1 (<1.2) 01/03/24 11:55 D-Dimer 6.62 mg/L FEU (<0.60) H 01/03/24 22:10 Abnormal lab findings: Abnormal Labs 01/03/24 01/03/24 01/03/24 11:55 11:55 11:55 RBC 3.32 L Hgb 10.4 L Hct 31.6 L RDW 18.9 H Lymphocytes # 0.5 L D-Dimer Sodium 131 L Potassium Chloride 96 L BUN 33 H Creatinine 2.33 H Glucose 143 H POC Glucose (mg/dL) Hemoglobin A1c Plasma Lactic Acid Rishi 3.7 H* Phosphorus 4.9 H Magnesium AST 56 H ALT 54 H Alkaline Phosphatase 137 H Creatine Kinase Troponin I Total Protein 6.1 L Albumin Urine Protein 01/03/24 01/03/24 01/03/24 11:55 15:20 16:38 RBC Hgb Hct RDW Lymphocytes # D-Dimer Sodium Potassium Chloride BUN Creatinine Glucose POC Glucose (mg/dL) Hemoglobin A1c Plasma Lactic Acid Rishi 3.1 H* Phosphorus Magnesium AST ALT Alkaline Phosphatase Creatine Kinase 226 H Troponin I 0.073 H* Total Protein Albumin Urine Protein 01/03/24 01/03/24 01/03/24 17:06 19:55 22:10 RBC Hgb Hct RDW Lymphocytes # D-Dimer 6.62 H Sodium Potassium Chloride BUN Creatinine Glucose POC Glucose (mg/dL) Hemoglobin A1c Plasma Lactic Acid Rishi Phosphorus Magnesium AST ALT Alkaline Phosphatase Creatine Kinase Troponin I 0.093 H* Total Protein Albumin Urine Protein Trace H 01/03/24 01/04/24 01/04/24 22:24 10:15 10:15 RBC 2.90 L Hgb 9.2 L Hct 27.9 L RDW 18.7 H Lymphocytes # 0.4 L D-Dimer Sodium Potassium Chloride BUN Creatinine Glucose POC Glucose (mg/dL) 117 H Hemoglobin A1c 7.6 H Plasma Lactic Acid Rishi Phosphorus Magnesium AST ALT Alkaline Phosphatase Creatine Kinase Troponin I Total Protein Albumin Urine Protein 01/04/24 01/04/24 01/05/24 10:15 16:30 09:39 RBC 2.92 L Hgb 9.3 L Hct 27.8 L RDW 18.2 H Lymphocytes # 0.3 L D-Dimer Sodium 136 L Potassium 3.3 L Chloride BUN 18 H Creatinine 1.07 H Glucose 105 H POC Glucose (mg/dL) 157 H Hemoglobin A1c Plasma Lactic Acid Rishi Phosphorus Magnesium 1.3 L AST 51 H ALT 51 H Alkaline Phosphatase 130 H Creatine Kinase Troponin I Total Protein 5.2 L Albumin 2.7 L Urine Protein - Diagnostic Findings Chest x-ray: image reviewed Assessment and Plan Assessment: Acute left-sided weakness, with possible microhemorrhage, right frontal lobe. History of small cell lung cancer, diagnosed April 2022. History of chronic obstructive pulmonary disease, mildly active. Possible pneumonia, left midlung. Hyponatremia, resolved. Liu-vdomnkc-lakzswcwd diabetes mellitus. Hyperlipidemia. Chronic hypoxemic respiratory failure. History of hypertension. History of left lower extremity DVT. Plan: Plan dated January 05, 2024. The patient is currently on Rocephin. Procalcitonin level was normal. The patient Symbicort be increased to 160/4.5, 2 puffs twice a day. In addition, the patient will continue on albuterol and Atrovent updraft treatments. The patient does not need corticosteroids in my opinion at this time. We will continue to follow. Prognosis is guarded. She came in primarily with left- sided weakness. She does have an area of microhemorrhage, in the right frontal lobe, which is currently being evaluated by the primary service. Time with Patient: Greater than 30
[2024-01-05 11:22] LABS: African American GFR (CKD) >90 (>60 ml/min/1.73 sqM); Anion Gap 5 mmol/L; Blood Urea Nitrogen 7 mg/dL (7-17); Calcium 8.9 mg/dL (8.4-10.2); Carbon Dioxide 26 mmol/L (22-30); Chloride 104 mmol/L (98-107); Glucose 95 mg/dL (74-99); Non-African American GFR(CKD) 90 (>60 ml/min/1.73 sqM); Potassium 3.3 mmol/L (3.5-5.1); Sodium 135 mmol/L (137-145)
[2024-01-05 11:37] LABS: Glucose,Whole Blood 107 mg/dL (70-110)
--- NOTE | 2024-01-05 15:08 | P.PN ---
Subjective Progress Note Date: 01/05/24 Subjective: Patient seen and examined at bedside. No acute events overnight. Still having worsening respiratory distress. Also complaining of chest pain which quickly resolved and now having mostly back pain. Pertinent positives and negatives as discussed above, a complete review of systems was performed and all other systems are negative. Vitals Signs Reviewed. General: Nontoxic, no distress, appears at stated age, chronically ill-appearing Derm: Warm, dry Head: Atraumatic, normocephalic, symmetric Eyes: EOMI, no lid lag, anicteric sclera Mouth: No lip lesion, mucus membranes moist Cardiovascular: S1S2 reg, no murmur Lungs: Bilateral rhonchi, no accessory muscle use, supplemental oxygen Abdominal: Soft, nontender to palpation, no guarding, no appreciable organomegaly Ext: No gross muscle atrophy, no edema, no contractures Neuro: CN II-XI grossly intact, no focal neuro deficits Psych: Alert, oriented, appropriate affect Data Reviewed Today: Pertinent Labs: Hemoglobin 9.3, potassium 3.3, sodium 135, creatinine 0.72, blood sugars range between 10 6-1 57 Imaging: EKG independently interpreted, shows sinus rhythm. Chest x-ray independently interpreted, persistent bilateral interstitial opacities worse on the left. Assessment and Plan: #. Debility #. JENNIFER prenal, resolved #. Hypovolemic hyponatremia, improving #. Acute normocytic anemia, stable #. Elevated troponin -Discontinue IV fluids -PT/OT -Encourage oral intake #. Community-acquired pneumonia #. Acute on chronic hypoxic respiratory failure #. History of non-small cell lung cancer #. Brain microhemorrhages -Continue ceftriaxone and IV 2 g every 24 hours, status post azithromycin -Pulmonology also consulted, note reviewed, increased dose of Symbicort, continue ipratropium 4 times daily -Oncology following -Wean oxygen -Repeat CT did not show progression of hemorrhages #. Transaminitis, stable #. Hypokalemia #. Hypomagnesemia, resolved -Another 40 mg of oral potassium given today #. Right hip pain Acetaminophen 650 mg p.o. every 6 hours as needed Gabapentin 100 mg p.o. 3 times daily -Added IV Dilaudid 0.5 every 4 hours as needed Chronic Conditions: #. Hrd-fcnjugz-tzovzuxjy type 2 diabetes, controlled #. Hyperlipidemia #. COPD on home oxygen #. GERD #. Hypertension #. History of DVT of left lower extremity Insulin sliding scale low-dose less than 70 kg ACHS, monitor for hypoglycemia Accu-Cheks ACHS A1c 7.6 Continue albuterol inhaler and Trelegy inhaler Hold metformin, amlodipine, aspirin, baclofen, meloxicam and losartan/hydrochlorothiazide DVT ppx: Eliquis Code status: Full code Anticipated discharge place: Pending clinical course Anticipated discharge time: Pending clinical course Objective - Vital Signs Vital signs: Vital Signs Temp 97.5 F L 01/05/24 12:00 Pulse 106 H 01/05/24 14:00 Resp 20 01/05/24 14:00 BP 136/82 01/05/24 12:00 Pulse Ox 95 01/05/24 12:00 FiO2 Intake & Output 01/04/24 01/05/24 01/05/24 18:59 06:59 18:59 Intake Total 180 100 Output Total 700 1225 Balance -520 -1225 100 Weight 81.5 kg Intake: Oral 180 100 Output: Urine 700 1225 Other: Voiding Method External Catheter External Catheter External Catheter # Voids 2 - Labs CBC & Chem 7: 01/05/24 09:39 01/05/24 09:39 Labs: Abnormal Lab Results - Last 24 Hours (Table) 01/04/24 01/05/24 01/05/24 Range/Units 16:30 09:39 09:39 RBC 2.92 L (3.80-5.40) m/uL Hgb 9.3 L (11.4-16.0) gm/dL Hct 27.8 L (34.0-46.0) % RDW 18.2 H (11.5-15.5) % Lymphocytes # 0.3 L (1.0-4.8) k/uL Sodium 135 L (137-145) mmol/L Potassium 3.3 L (3.5-5.1) mmol/L POC Glucose (mg/dL) 157 H (70-110) mg/dL Microbiology - Last 24 Hours (Table) 01/03/24 16:34 Blood Culture - Preliminary Blood
[2024-01-05] MEDS: ASPIRIN 325 MG TAB PO STA ×2 (15:47→17:26)
[2024-01-05] MEDS: POTASSIUM CHLORIDE ER 20 MEQ TAB.ER PO STA (15:47)
[2024-01-05] MEDS: ONDANSETRON 4 MG/2 ML VIAL IVP PRN (15:53)
[2024-01-05] MEDS: HEPARIN SOD,PORK IN 0.45% NACL 25,000 UNIT in 0.45% NACL 1 250ML.BAG IV SCH (16:02)
[2024-01-05 16:10] LABS: Anisocytosis Slight; Basophils % (A) 0 %; Eosinophils # (A) 0.2 k/uL (0-0.7); Eosinophils % (A) 2 %; Hypochromasia Slight; Lymphocytes # (A) 0.4 k/uL (1.0-4.8); Lymphocytes % (A) 5 %; MCH 31.8 pg (25.0-35.0); MCHC 33.4 g/dL (31.0-37.0); MCV 95.2 fL (80.0-100.0); Macrocytosis Slight; Mean Platelet Volume 7.4; Monocytes # (A) 0.5 k/uL (0-1.0); Monocytes % (A) 6 %; Neutrophils # (A) 7.2 k/uL (1.3-7.7); Neutrophils % (A) 85 %; Platelet Count 183 k/uL (150-450); Poikilocytosis Slight; RBC 3.15 m/uL (3.80-5.40); RDW 18.3 % (11.5-15.5); WBC 8.5 k/uL (3.8-10.6)
[2024-01-05 16:18] LABS: INR 1.4 (<1.2); Partial Thromboplastin Time 24.9 sec (22.0-30.0); Prothrombin Time 14.4 sec (10.0-12.5)
[2024-01-05 16:45] LABS: Glucose,Whole Blood 96 mg/dL (70-110)
[2024-01-05] MEDS: FLUTICASONE NASAL 50MCG/SPRAY 16GM BTL EA NOSTRIL PRN (18:04)
[2024-01-05 20:13] LABS: Glucose,Whole Blood 85 mg/dL (70-110)
[2024-01-05] MEDS: SYMBICORT 160-4.5 MCG INHALER INHALATION SCH (20:26)
[2024-01-05] MEDS: HEPARIN SODIUM 1,000 UN/ML (10ML VL) IV PRN (22:08)
[2024-01-06 06:04] LABS: Glucose,Whole Blood 77 mg/dL (70-110)
[2024-01-06 07:17] LABS: Anisocytosis Slight; Basophils % (A) 0 %; Eosinophils # (A) 0.3 k/uL (0-0.7); Eosinophils % (A) 3 %; HGB 9.4 gm/dL (11.4-16.0); Hypochromasia Slight; Lymphocytes # (A) 0.6 k/uL (1.0-4.8); Lymphocytes % (A) 6 %; MCH 31.8 pg (25.0-35.0); MCHC 33.6 g/dL (31.0-37.0); MCV 94.7 fL (80.0-100.0); Mean Platelet Volume 7.7; Monocytes # (A) 0.7 k/uL (0-1.0); Monocytes % (A) 8 %; Neutrophils # (A) 7.6 k/uL (1.3-7.7); Neutrophils % (A) 81 %; Platelet Count 193 k/uL (150-450); Poikilocytosis Slight; RBC 2.96 m/uL (3.80-5.40); RDW 18.1 % (11.5-15.5); WBC 9.5 k/uL (3.8-10.6)
[2024-01-06 07:29] LABS: INR 1.4 (<1.2); Partial Thromboplastin Time 70.2 sec (22.0-30.0); Prothrombin Time 14.3 sec (10.0-12.5)
[2024-01-06] MEDS: ASPIRIN 81 MG PO SCH (08:18)
[2024-01-06 08:20] LABS: ALT 57 U/L (4-34); AST 103 U/L (14-36); African American GFR (CKD) >90 (>60 ml/min/1.73 sqM); Albumin 2.6 g/dL (3.5-5.0); Alkaline Phosphatase 153 U/L (38-126); Anion Gap 5 mmol/L; Blood Urea Nitrogen 6 mg/dL (7-17); Carbon Dioxide 26 mmol/L (22-30); Chloride 102 mmol/L (98-107); Glucose 64 mg/dL (74-99); Magnesium 1.1 mg/dL (1.6-2.3); Non-African American GFR(CKD) >90 (>60 ml/min/1.73 sqM); Potassium 3.5 mmol/L (3.5-5.1); Sodium 133 mmol/L (137-145); Total Bilirubin 0.7 mg/dL (0.2-1.3); Total Protein 5.2 g/dL (6.3-8.2)
[2024-01-06] MEDS: ALPRAZolam 0.25 MG TAB PO SCH (09:40)
--- NOTE | 2024-01-06 10:21 | CT ---
EXAMINATION TYPE: CT brain wo con CT DLP: 1094.4 mGycm, Automated exposure control for dose reduction was used. DATE OF EXAM: 01/06/2024 10:13 AM COMPARISON: Prior CT Brain from 01/04/2024, 01/03/2024. CLINICAL INDICATION:Female, 63 years old with history of Microhemorrhages, on heparin drip, TECHNIQUE: Brain: Multiple axial CT images of the brain were obtained without IV contrast. . Coronal and sagitta l reformats reviewed. FINDINGS: Brain: Extra-axial spaces: No abnormal extra-axial fluid collections. Ventricular system: Within normal limits Cerebral parenchyma: Stable single focus of 2 mm increased density within the posterior right frontal white matter. No new suspicious hemorrhage. The bartholomew-white junction is well differentiated. Scattere d hypoattenuating areas are seen within the periventricular white matter. Cerebellum: Low-lying right cerebellar tonsil measuring 5 mm below the foramen magnum. Retrospectivel y stable from prior exams. Mass effect: No evidence of midline shift. Intracranial vasculature: Atherosclerotic calcifications of the intracranial vessels. Soft tissues: Normal. Calvarium/osseous structures: No depressed skull fracture. Paranasal sinuses and mastoid air cells: Air-fluid levels within the bilateral matter sinuses. Mild m ucosal thickening in ethmoid sinuses. The mastoid air cells are clear. Visualized orbits: Orbital contents are intact. IMPRESSION: 1. No change in small focus of increased density within the posterior right frontal lobe which could represent small microhemorrhage. Correlate with MRI of the brain. No mass effect or midline shift. 2. Low-lying right cerebellar tonsil redemonstrated. 3. Acute-appearing paranasal sinus disease. [facility], , 01/06/2024 10:19 AM
--- NOTE | 2024-01-06 10:49 | P.CRDCN ---
History of Present Illness History of present illness: HISTORY OF PRESENT ILLNESS: This is a 63-year-old female with a past medical history significant for lung cancer, COPD, diabetes, hypertension, hyperlipidemia, and hypothyroidism. Patient does not follow with a director of retention. We have been asked to see the patient in consultation for elevated troponins. Patient examined at the bedside. Patient initially presented to the hospital with left-sided weakness, difficulty concentrating, and dizziness. Patient developed chest discomfort yes terday. EKG completed without any signs of acute ischemia. She was started on IV heparin. Patient is restless this morning the time of examination. She denies any chest pain. Per nursing, patients oxygenation requirements have increased and patient is currently on a nonrebreather. Patient underwent repeat brain CT this morning without any change and possible microhemorrhage in posterior right frontal white matter. DIAGNOSTICS: - EKG reveals sinus tachycardia with no signs of acute ischemia - Chest xray marked acute cardiopulmonary disease with no interval change - CT of the brain: No change and small focus of increased density in the posterior right frontal white matter. Could represent small microhemorrhage. Unchanged. - VQ scan indeterminate for pulmonary embolism. Findings likely related to chronic lung disease. - Laboratory data: WBC 9.5. Hemoglobin 9.4. Platelet count 193. Sodium 135. Potassium 3.3. BUN 7. Creatinine 0.72. AST 51. ALT 51. proBNP 148. Troponin 0.073. 0.093. 4.080. 10.300. - Current home cardiac medications include Eliquis 5 mg twice a day, amlodipine 5 mg daily, aspirin 81 mg daily - No previous echocardiogram, stress test, or cardiac catheterization available in EMR for review REVIEW OF SYSTEMS: At the time of my exam: CONSTITUTIONAL: Denies fever or chills. HEENT: Denies blurred vision, vision changes, or eye pain. Denies hemoptysis CARDIOVASCULAR: Denies chest pain. Denies orthopnea. Denies PND. Denies palpitations RESPIRATORY: Denies shortness of breath. GASTROINTESTINAL: Denies abdominal pain. Denies nausea or vomiting. HEMATOLOGIC: Denies bleeding disorders. GENITOURINARY: Denies any blood in urine. SKIN: Denies pruitis. Denies rash. PHYSICAL EXAM: VITAL SIGNS: Reviewed. GENERAL: Well-developed in no acute distress. HEENT: Head is normocephalic. Pupils are equal, round. Sclerae anicteric. Mucous membranes of the mouth are moist. Neck supple. No JVD or thyromegaly LUNGS: Respirations even and unlabored. Lungs essentially clear to auscultation bilaterally. HEART: Regular rate and rhythm. S1 and S2 heard. ABDOMEN: Soft. Nondistended. Nontender. EXTREMITIES: Normal range of motion. No clubbing or cyanosis. Peripheral pulses intact. No lower extremity edema NEUROLOGIC: Awake and alert. Oriented x 3. ASSESSMENT: Acute left-sided weakness Possible microhemorrhage in posterior right frontal white matter, per CT brain Non-STEMI Acute kidney injury, resolved Left-sided pneumonia History of small cell lung cancer, 2022 Acute on chronic hypoxic respiratory failure COPD on home oxygen Hypertension Hyperlipidemia Diabetes History of DVT, on Eliquis outpatient PLAN: 2D echo has been ordered. Await results. Continue aspirin and atorvastatin Continue IV heparin. Eliquis remains on hold. Pulmonary following No plans for cardiac catheterization at this time due to patient's other acute conditions. Continue with medical management. Further recommendations pending patient course Nurse practitioner note has been reviewed by physician. Signing provider agrees with the documented findings, assessment, and plan of care documented by PRODUCT TECHNOLOGY SCIENTIST as a scribe. Past Medical History Past Medical History: COPD, Diabetes Mellitus, GERD/Reflux, Hyperlipidemia, Hypertension, Osteoarthritis (OA), Thyroid Disorder Additional Past Medical History / Comment(s): hx hepatitis c with tx., diabetes diet controlled., emphysema, back pain, hx of covid x2 (2019,2021), left lung mass., pt states mild oral thrush and started on nystatin -pt to notify Dr. Efrain BYRD. 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 , LEFT CARPAL TUNNEL RELEASE, LEFT ARTHROSCOPIC KNEE SURGERY., , RIGHT ELBOW SURGERY- (no anesthesia) Past Anesthesia/Blood Transfusion Reactions: No Reported Reaction Additional Past Anesthesia/Blood Transfusion Reaction / Comment(s): no hx of blood transfusion Past Psychological History: Anxiety Smoking Status: Former smoker Past Alcohol Use History: None Reported Additional Past Alcohol Use History / Comment(s): QUIT SMOKING 2016., STARTED SMOKING AGE 18., SMOKED 1/2PPD Past Drug Use History: None Reported - Past Family History Mother Family Medical History: No Reported History Sister(s) Family Medical History: Blood Disorder, Deep Vein Thrombosis (DVT) Additional Family Medical History / Comment(s): LEIDEN FACTOR FIVE Medications and Allergies Home Medications Medication Instructions Recorded Confirmed Type Albuterol Inhaler [Ventolin Hfa 2 puff INHALATION RT-QID PRN 12/04/21 01/03/24 History Inhaler] Gabapentin [Neurontin] 600 mg PO TID 12/04/21 01/03/24 History Levothyroxine Sodium [Synthroid] 88 mcg PO DAILY 12/04/21 01/03/24 History Losartan/Hydrochlorothiazide 1 tab PO DAILY 12/04/21 01/03/24 History [Losartan-Hctz 100-12.5 mg Tab] Meloxicam [Mobic] 15 mg PO DAILY 12/04/21 01/03/24 History amLODIPine [Norvasc] 5 mg PO DAILY 12/04/21 01/03/24 History buPROPion HCL [buPROPion HCL XL] 300 mg PO DAILY 12/04/21 01/03/24 History traMADol HCL 50 mg PO BID PRN 12/04/21 01/03/24 History Aspirin [Adult Low Dose Aspirin EC] 81 mg PO DAILY 04/18/22 01/03/24 History Cholecalciferol [Vitamin D3 (25 50 mcg PO DAILY 04/18/22 01/03/24 History Mcg = 1000 Iu)] Multivit with Calcium,Iron,Min 1 tab PO DAILY 04/18/22 01/03/24 History [Women's Multivitamin] Omeprazole [PriLOSEC] 40 mg PO HS 04/18/22 01/03/24 History Rosuvastatin Calcium 20 mg PO HS 04/18/22 01/03/24 History ALPRAZolam [Xanax] 0.25 mg PO DAILY PRN 01/03/24 01/03/24 History Apixaban [Eliquis] 5 mg PO BID 01/03/24 01/03/24 History Baclofen 5 mg PO TID 01/03/24 01/03/24 History Cetirizine HCl [Zyrtec] 10 mg PO DAILY 01/03/24 01/03/24 History Fluticasone/Umeclidin/Vilanter 1 puff INHALATION RT-DAILY 01/03/24 01/03/24 History [Trelegy Ellipta 100-62.5-25] Mupirocin 2% Oint [Bactroban 2% 1 applic TOPICAL TID 01/03/24 01/03/24 History Oint] Nystatin 100,000 Unit/ml Susp 500,000 ml PO QID 01/03/24 01/03/24 History [Mycostatin Oral Susp] Zinc Gluconate [Zinc] 50 mg PO DAILY 01/03/24 01/03/24 History metFORMIN HCL [Glucophage] 500 mg PO BID 01/03/24 01/03/24 History Allergies Allergy/AdvReac Type Severity Reaction Status Date / Time cefdinir Allergy SORES IN Verified 01/03/24 15:28 MOUTH" Physical Exam Vitals: Vital Signs Temp Pulse Pulse Resp BP Pulse Ox 01/06/24 07:51 94 L 01/06/24 07:47 97.4 F L 107 H 14 105/65 86 L 01/06/24 04:00 98.4 F 102 H 21 104/66 97 01/06/24 01:15 19 01/06/24 00:00 98.1 F 107 H 19 109/69 97 01/05/24 20:36 100 01/05/24 20:26 96 01/05/24 19:51 98.0 F 106 H 24 114/71 94 L 01/05/24 19:49 106 H 24 01/05/24 16:00 97.6 F 104 H 20 146/72 97 01/05/24 14:00 106 H 20 01/05/24 12:00 97.5 F L 106 H 20 136/82 95 01/05/24 11:42 100 01/05/24 11:24 98 01/05/24 08:15 95 01/05/24 08:14 110 H Intake and Output 01/05/24 01/06/24 01/06/24 22:59 06:59 14:59 Intake Total 229.821 Output Total 550 Balance 229.821 -550 Intake: Intake, IV Titration 59.821 Amount Heparin Sod,Pork in 0.45% 59.821 NaCl 25,000 unit In 0.45 % NaCl 1 250ml.bag @ 12 UNITS/KG/HR 9.78 mls/hr IV .Q24H REPLACED BY [facility] Rx#: [id number] Oral 170 Output: Urine 550 Other: Voiding Method External Catheter External Catheter Weight 85 kg Results 01/06/24 06:08 01/06/24 06:08 Cardiac Enzymes 01/05/24 01/05/24 Range/Units 13:00 21:21 Troponin I 4.080 H* 10.300 H* (0.000-0.034) ng/mL Coagulation 01/05/24 01/05/24 01/06/24 Range/Units 15:41 21:21 06:08 PT 14.4 H 14.3 H (10.0-12.5) sec APTT 24.9 38.4 H 70.2 H (22.0-30.0) sec CBC 01/05/24 01/05/24 01/06/24 Range/Units 09:39 15:41 06:08 WBC 6.7 8.5 9.5 (3.8-10.6) k/uL RBC 2.92 L 3.15 L 2.96 L (3.80-5.40) m/uL Hgb 9.3 L 10.0 L 9.4 L (11.4-16.0) gm/dL Hct 27.8 L 30.0 L 28.0 L (34.0-46.0) % Plt Count 152 183 193 (150-450) k/uL Comprehensive Metabolic Panel 01/05/24 Range/Units 09:39 Sodium 135 L (137-145) mmol/L Potassium 3.3 L (3.5-5.1) mmol/L Chloride 104 (98-107) mmol/L Carbon Dioxide 26 (22-30) mmol/L BUN 7 (7-17) mg/dL Creatinine 0.72 (0.52-1.04) mg/dL Glucose 95 (74-99) mg/dL Calcium 8.9 (8.4-10.2) mg/dL Current Medications Generic Name Dose Route Start Last Admin Trade Name Freq PRN Reason Stop Dose Admin Acetaminophen 650 mg 01/03/24 14:05 01/05/24 03:09 Acetaminophen Tab 325 Mg Tab PO 650 mg Q6HR PRN Administration Mild Pain or Fever > 100.5 Albuterol Sulfate 2.5 mg 01/03/24 15:43 Albuterol Nebulized 2.5 Mg/3 Ml INHALATION RT-QID PRN Shortness Of Breath Or Wheezing Aspirin 81 mg 01/06/24 09:00 Aspirin 81 Mg PO DAILY SAMRA Atorvastatin Calcium 40 mg 01/03/24 21:00 01/05/24 21:02 Atorvastatin 40 Mg Tab PO 40 mg HS SAMRA Administration Benzocaine/Menthol 1 each 01/03/24 23:19 01/05/24 18:05 Benzocaine/Menthol Lozeng 1 Each Lozenge MUCOUS MEM 1 each Q4HR PRN Administration Sore Throat Budesonide/Formoterol Fumarate 2 puff 01/05/24 20:00 01/05/24 20:26 Symbicort 160-4.5 Mcg Inhaler INHALATION 2 puff RT-BID SAMRA Administration Bupropion HCl 300 mg 01/04/24 09:00 01/05/24 09:54 Bupropion Xl 300 Mg Tab.Er.24h PO 300 mg DAILY SAMRA Administration Dextrose/Water 25 ml 01/03/24 15:52 Dextrose 50% Syringe 50 Ml IVP PER PROTOCOL PRN Hypoglycemia Protocol Dextrose/Water 50 ml 01/03/24 15:52 Dextrose 50% Syringe 50 Ml IVP PER PROTOCOL PRN Hypoglycemia Protocol Fluticasone Propionate 2 spray 01/04/24 17:31 01/05/24 18:04 Fluticasone Nasal 50mcg/[place] 16gm Btl EA NOSTRIL 2 spray DAILY PRN Administration nasal congestion Gabapentin 100 mg 01/03/24 22:00 01/05/24 21:02 Gabapentin 100 Mg Cap PO 100 mg TID SAMRA Administration Heparin Sodium (Porcine) 0 unit 01/05/24 15:19 01/05/24 22:08 Heparin Sodium 1,000 Un/Ml (10ml Vl) IV 2,038 unit PER PROTOCOL PRN Administration Low PTT Protocol Hydromorphone HCl 0.5 mg 01/05/24 08:14 01/06/24 02:41 Hydromorphone 0.5 Mg/0.5 Ml Syringe IVP 0.5 mg Q4HR PRN Administration Pain Ceftriaxone Sodium 2 gm/ 50 mls @ 100 mls/hr 01/04/24 11:30 01/05/24 09:54 Sodium Chloride IVPB 01/07/24 09:29 100 mls/hr Q24HR SAMRA Administration Protocol Heparin Sodium/Sodium Chloride 250 mls @ 9.78 mls/hr 01/05/24 15:30 01/05/24 22:09 25,000 unit/ Sodium Chloride IV 14 units/kg/hr .Q24H SAMRA 11.41 mls/hr Titration Protocol 12 UNITS/KG/HR Insulin Aspart 0 unit 01/03/24 17:30 01/06/24 05:50 Insulin Aspart (Novolog) 100 Unit/Ml Vial SQ Not Given ACHS REPLACED BY [facility] Protocol Ipratropium [place] 0.5 mg 01/03/24 16:00 01/05/24 20:26 Ipratropium 0.5 Mg/2.5 Ml Nebu INHALATION 0.5 mg RT-QID SAMRA Administration Levothyroxine Sodium 88 mcg 01/04/24 06:30 01/06/24 05:56 Levothyroxine 88 Mcg Tab PO 88 mcg 0630 SAMRA Administration Miscellaneous Information 1 each 01/03/24 14:09 Pneumonia Protocol Utilized 1 Each Misc PO ONCE PRN Per Protocol Naloxone HCl 0.2 mg 01/03/24 14:05 Naloxone 0.4 Mg/Ml 1 Ml Vial IV Q2M PRN Opioid Reversal Ondansetron HCl 4 mg 01/05/24 14:58 01/05/24 15:53 Ondansetron 4 Mg/2 Ml Vial IVP 4 mg Q6HR PRN Administration Nausea And Vomiting Pantoprazole Sodium 40 mg 01/03/24 21:00 01/05/24 21:02 Pantoprazole 40 Mg Tablet PO 40 mg HS SAMRA Administration Tramadol HCl 50 mg 01/05/24 03:57 01/06/24 00:00 Tramadol 50 Mg Tab PO 50 mg TID PRN Administration Pain Zolpidem Tartrate 5 mg 01/03/24 23:19 01/05/24 21:10 Zolpidem 5 Mg Tab PO 5 mg HS PRN Administration Insomnia Intake and Output 01/05/24 01/06/24 01/06/24 22:59 06:59 14:59 Intake Total 229.821 Output Total 550 Balance 229.821 -550 Intake: Intake, IV Titration 59.821 Amount Heparin Sod,Pork in 0.45% 59.821 NaCl 25,000 unit In 0.45 % NaCl 1 250ml.bag @ 12 UNITS/KG/HR 9.78 mls/hr IV .Q24H REPLACED BY [facility] Rx#: [id number] Oral 170 Output: Urine 550 Other: Voiding Method External Catheter External Catheter Weight 85 kg 01/06/24 06:08 01/05/24 09:39
--- NOTE | 2024-01-06 11:07 | XR ---
EXAMINATION TYPE: XR chest 1V portable DATE OF EXAM: 01/06/2024 9:47 AM COMPARISON: 01/05/2024 CLINICAL INDICATION: Female, 63 years old with history of shortness of breath, , FINDINGS: Left heart margin obscured by adjacent pleural parenchymal opacities. Extensive patchy interstitial o pacities persist bilaterally in the lungs possibly with slight improvement in aeration. No sizable pl eural effusion. IMPRESSION: Ongoing bilateral patchy and interstitial infiltrates. Stable to minimally improved from yesterday. [facility], , 01/06/2024 11:04 AM
[2024-01-06] MEDS: HYDROmorphone 1 MG/ML 1 ML SYRINGE IVP STA (11:19)
--- NOTE | 2024-01-06 11:21 | CA ---
Transthoracic Echo Report Name: Tianna Shelton Age: 63 Gender: F : 1960 Exam Date: 01/06/2024 09:22 Exam Location: [place] [facility] Ht (in): 64 Wt (lb): 179 Ordering Physician: Robert Teran MD ([id number]) Attending/Referring Phys: Double Head Machine Operator Yeny Woods RDCS Procedure CPT: Indications: Chest Pain Cardiac Hx: Technical Quality: Good Contrast 1: Total Dose (mL): Contrast 2: Total Dose (mL): MEASUREMENTS (Male / Female) Normal Values 2D ECHO LV Diastolic Diameter PLAX 4.8 cm 4.2 - 5.9 / 3.9 - 5.3 cm LV Systolic Diameter PLAX 3.3 cm IVS Diastolic Thickness 0.9 cm 0.6 - 1.0 / 0.6 - 0.9 cm LVPW Diastolic Thickness 1.0 cm 0.6 - 1.0 / 0.6 - 0.9 cm LV Relative Wall Thickness 0.4 RV Internal Dim ED PLAX 3.0 cm LA Systolic Diameter LX 3.0 cm 3.0 - 4.0 / 2.7 - 3.8 cm LV Diastolic Volume MOD BP 82.2 cm??? 67 - 155 / 56 - 104 cm??? LV Systolic Volume MOD BP 35.8 cm??? 22 - 58 / 19 - 49 cm??? LV Ejection Fraction MOD BP 56.5 % >= 55 % LV Cardiac Index MOD BP 2415.2 cm???/min???m??? LV Diastolic Volume MOD 4C 64.0 cm??? LV Systolic Volume MOD 4C 22.4 cm??? LV Ejection Fraction MOD 4C 64.9 % LV Cardiac Index MOD 4C 2158.1 cm???/min???m??? LV Diastolic Length 4C 6.1 cm LV Systolic Length 4C 5.2 cm LV Diastolic Volume MOD 2C 95.4 cm??? LV Systolic Volume MOD 2C 44.8 cm??? LV Ejection Fraction MOD 2C 53.0 % LV Cardiac Index MOD 2C 2628.3 cm???/min???m??? LV Diastolic Length 2C 6.8 cm LV Systolic Length 2C 6.8 cm LA Volume 32.2 cm??? 18 - 58 / 22 - 52 cm??? LA Volume Index 16.6 cm???/m??? 16 - 28 cm???/m??? M-MODE Aortic Root Diameter MM 3.5 cm AV Cusp Separation MM 2.1 cm DOPPLER AV Peak Velocity 147.4 cm/s AV Peak Gradient 8.7 mmHg MV Area PHT 3.5 cm??? Mitral E Point Velocity 89.6 cm/s Mitral A Point Velocity 88.0 cm/s Mitral E to A Ratio 1.0 MV Deceleration Time 214.5 ms TR Peak Velocity 288.0 cm/s TR Peak Gradient 33.2 mmHg Right Ventricular Systolic Press 37.3 mmHg FINDINGS Left Ventricle Left ventricular ejection fraction is estimated at 55-60 %. Left ventricular cavity size normal. Left ventricular wall thickness normal. Normal left ventricular wall motion. Right Ventricle Normal right ventricular size and function. Mild pulmonary hypertension. Right Atrium Normal right atrial size. No right atrial thrombus or mass seen. Left Atrium Normal left atrial size. No left atrial thrombus or mass present. Mitral Valve Structurally normal mitral valve. Mild mitral regurgitation. Aortic Valve Trileaflet aortic valve. No aortic valve stenosis or regurgitation.aortic valve sclerosis. Tricuspid Valve Structurally normal tricuspid valve. Mild tricuspid regurgitation. Pulmonic Valve Structurally normal pulmonic valve. Trace pulmonic regurgitation. Pericardium No pericardial or pleural effusion. Aorta Normal size aortic root and proximal ascending aorta. CONCLUSIONS 1. Normal left ventricular size and systolic function 2. Mild mitral and tricuspid regurgitation with mild pulmonary hypertension Previewed by: Dr. Maria Del Carmen Balbuena MD (Electronically Signed) Final Date: 06 January 2024 11:20
[2024-01-06] MEDS: NITROGLYCERIN OINT 1 INCH/GM PACKET TOPICAL SCH (11:23)
[2024-01-06] MEDS: MAGNESIUM SULFATE-D5W PMX 1 GM in DEXTROSE/WATER 1 100ML.BAG IVPB SCH (11:24)
[2024-01-06 11:47] LABS: Glucose,Whole Blood 82 mg/dL (70-110)
--- NOTE | 2024-01-06 12:23 | P.PN ---
Subjective Progress Note Date: 01/06/24 Patient is a 63-year-old female with hypertension, hyperlipidemia, diabetes (controlled with diet), COPD (on home oxygen for 2 L GERD, history of lung CA diagnosed in April 2022 (with history of immunotherapy and radiation being seen by Dr. Manley) and DVT (on Eliquis) who came in for generalized weakness. Patient reported 3 to 4 weeks ago, she began to experience left hip pain that was intermittent dull nonradiating to an intensity of 8 to 7 out of 10 after being admitted for DVT of the left lower extremity. She went to the ER during that time in another facility and was told that it was a muscle sprain that only required bedrest. However, on 12/27 hip pain increased severity of 10 out of 10 and was intolerable which led the patient to seek care in another ED. She was prescribed morphine IM, a muscle relaxer and advised to continue her home tramadol. Her pain was controlled throughout the week but she noticed that she became generally weak with associated lethargy which led her to be wheelchair- bound and could not perform her usual ADLs including eating or drinking. On Sunday 12/31 she also experienced a fall but she was able to catch herself and did not lose consciousness and sat down on the bathroom floor for about an hour. Patient and patient's family decided not to seek care at the time. However, because the weakness was persistent and did not go away, family and patient decided to seek care today. She denied changes in vision, tremors, facial asymmetry, chest pain, shortness of breath, calf tenderness, fever, chills, sweats, dysuria, hematuria, nausea, vomiting, diarrhea, recent travel or recent sick contacts. In the ER, chest x-ray shows left midlung airspace opacities. CT brain shows hyperdense focus on posterior right frontal lobe with suspicion for acute microhemorrhage, no evidence of midline shift or edema. EKG shows sinus rhythm with a rate of [address]-T changes low voltage good R wave progression QTc 422 WBC 9.6 hemoglobin 10.4 MCV 95 platelet count 196 sodium 131 potassium 3.9 chloride 96 bicarb 22 BUN 33 creatinine 2.33 glucose 143 plasma lactic acid 3.7 phosphorus 4.9 AST 56 ALT 54 ALP 137 troponin 0.073 albumin 3.5. On admission, patient was afebrile at 97.5 pulse rate 100 respiratory 20 blood pressure 98/54 O2 saturation 97% 01/04/2024 patient seen and examined at bedside. Patient reported that she has a cough that is productive with a sore throat. Overnight her troponin increased from 0.07-0.09 with no chest pain but noted increased oxygen demand and tachycardia. Repeat CT of the brain shows no change. V/q. perfusion scan done shows indeterminate for pulmonary embolism and findings are more likely related to chronic lung disease. Chest x-ray shows lungs with mild interval worsening of the focal opacities. WBC 7 hemoglobin 9.2 MCV 96 platelet count 166,000 sodium 136 potassium 3.3 BUN 18 creatinine 1.07 glucose 105 A1c 7.6 calcium 8.9 phosphorus 3.5 magnesium 1.3 AST 51 ALT 51 alk phos 130 albumin 2.7 01/05/2024 Patient seen and examined at bedside. No acute events overnight. Still having worsening respiratory distress. Also complaining of chest pain which quickly resolved and now having mostly back pain. EKG independently interpreted showed only shows sinus rhythm. No significant ST-T wave changes. Troponin elevated up to 4, repeat pending. Given aspirin 325. Started on low intensity heparin drip. Repeat CT head tomorrow. Cardiology also consulted. On telemetry monitoring. 01/06/2024 patient seen and examined at bedside. Patient reported to be anxious and uncomfortable due to back pain. Patient oxygenation requirement increased to 6 L and now on rebreather. WBC 9.5 hemoglobin 9.4 PT 14.3 INR 1.4 PTT 70.2 sodium 133 AST 103 ALT 57 alk phos 153 troponin 10 albumin 2.6. Chest x-ray shows ongoing bilateral patchy and interstitial infiltrates with minimal change from yesterday. Repeat brain CT show small microhemorrhages and small focus of increased density within the posterior right frontal lobe with no change. Echocardiogram shows left ventricular ejection fraction of 55 to 60% with no wall thickness and normal wall motion. Review of systems: Pertinent positives and negatives as discussed in HPI, a complete review of systems was performed and all other systems are negative. Pertinent imaging and labs reviewed. Physical examination: Vital signs reviewed General: non toxic, no distress, on nonrebreather Derm: no unusual rashes/lesions, warm Head: atraumatic, normocephalic, symmetric Eyes: EOMI, anicteric sclera, pupils equal round reactive to light ENT: Nose and ears atraumatic Neck: No cervical lymphadenopathy, trachea midline, supple Mouth: no lip lesion, mucus membranes moist, some mild erythema of the throat Cardiovascular: S1S2 tachycardic, no murmur Lungs: CTA bilateral, no rhonchi, no rales, no accessory muscle use Abdominal: soft, nontender to palpation, no guarding Ext: muscle strength 5 out of 5 in all 4 extremities grossly, no gross muscle atrophy, no contractures, positive dorsalis pedis pulse bilateral, no extremity edema Neuro: CN II-XI grossly intact, no gross focal neuro deficits Psych: Alert and oriented x3, appropriate affect and mood Assessment/Plan: 63-year-old woman who came in for generalized weakness with recent new medications for left hip pain. Was found to have JENNIFER #. Acute NSTEMI #. Debility #. JENNIFER resolved #. Hypovolemic hyponatremia, improving #. Acute normocytic anemia, stable #. History of DVT of left lower extremity IV normal saline boluses initiated in the ED IV fluids discontinued. Oral intake encouraged Continue heparin drip, monitor APTT, monitor for bleeding Aspirin 81 mg p.o. daily and Lipitor 40 mg p.o. daily urinalysis shows only trace potassium Troponin 10. Repeat tropoinin Creatinine kinase 226 Echocardiogram shows left ventricular ejection fraction of 55 to 60% with no wall thickness and normal wall motion. Chest x-ray now Monitor BMP, mag, Phos Avoid nephrotoxic agents and medications Consult PT OT Cardiology following #. Community-acquired pneumonia #. Acute on chronic hypoxic respiratory failure #. History of non-small cell lung cancer #. Brain microhemorrhages Patient developed a productive cough cough and sore throat. Repeated chest x- ray left midlung airspace opacities Pulmonology also consulted, note reviewed, increased dose of Symbicort, continue ipratropium 4 times daily Initiated Rocephin IVPB daily for 4 days Status post azithromycin 500 mg IVP daily Blood cultures pending Repeat CT head shows stable microhemorrhages #. Transaminitis, stable Patient not experiencing any right upper quadrant pain Monitor CMP #. Hypokalemia, resolved #. Hypomagnesemia Potassium 3.5 magnesium magnesium 1.1 Replete mag. Check mag after 4 hours #. Right hip pain, stable Acetaminophen 650 mg p.o. every 6 hours as needed Gabapentin 100 mg p.o. 3 times daily #. Epistaxis INR elevated 1.4 PTT elevated at 14.3 Monitor for now Likely from nasal cannula #. History of small cell lung cancer diagnosed in April 2022 Heme-onc consulted -Status post lung and brain radiation and chemotherapy Chronic Conditions: #. Gej-xwisaqd-rovwlejfb type 2 diabetes, controlled #. Hyperlipidemia #. COPD on home oxygen #. GERD #. Hypertension #. History of DVT of left lower extremity Insulin sliding scale low-dose less than 70 kg ACHS, monitor for hypoglycemia Accu-Cheks ACHS A1c 7.6 Continue albuterol inhaler and Trelegy inhaler Hold Eliquis 5 mg p.o. twice daily, in the setting of possible brain microhemorrhages Hold metformin, amlodipine, aspirin, baclofen, meloxicam and losartan/hydrochlorothiazide F: Oral intake E: Magnesium 4 g N: Renal diet A: Fall precautions needs ambulation support DVT ppx: Heparin drip Dispo: Pending clinical course Julianne Owens MD PGY-1/[employer] Dictation was produced using [employer] dictation software. please excuse any grammatical, word or spelling errors. I have seen and evaluated the patient today. Discussed with the resident and agree with the residents finding and plan as documented in the resident's note. Changes highlighted in blue font. Objective - Vital Signs Vital signs: Vital Signs Temp 98.2 F 01/06/24 11:27 Pulse 101 H 01/06/24 11:27 Resp 14 01/06/24 11:27 BP 104/59 01/06/24 11:27 Pulse Ox 94 L 01/06/24 11:27 FiO2 Intake & Output 01/05/24 01/06/24 01/06/24 18:59 06:59 18:59 Intake Total 150 179.821 Output Total 550 Balance 150 -370.179 Weight 85 kg Intake: Intake, IV Titration 59.821 Amount Heparin Sod,Pork in 0.45% 59.821 NaCl 25,000 unit In 0.45 % NaCl 1 250ml.bag @ 12 UNITS/KG/HR 9.78 mls/hr IV .Q24H [facility] Rx#: [id number] Oral 150 120 Output: Urine 550 Other: Voiding Method External Catheter External Catheter - Labs CBC & Chem 7: 01/06/24 06:08 01/06/24 06:08 Labs: Abnormal Lab Results - Last 24 Hours (Table) 01/05/24 01/05/24 01/05/24 Range/Units 13:00 15:41 15:41 RBC 3.15 L (3.80-5.40) m/uL Hgb 10.0 L (11.4-16.0) gm/dL Hct 30.0 L (34.0-46.0) % RDW 18.3 H (11.5-15.5) % Lymphocytes # 0.4 L (1.0-4.8) k/uL PT 14.4 H (10.0-12.5) sec INR 1.4 H (<1.2) APTT (22.0-30.0) sec Sodium (137-145) mmol/L BUN (7-17) mg/dL Glucose (74-99) mg/dL Magnesium (1.6-2.3) mg/dL AST (14-36) U/L ALT (4-34) U/L Alkaline Phosphatase (38-126) U/L Troponin I 4.080 H* (0.000-0.034) ng/mL Total Protein (6.3-8.2) g/dL Albumin (3.5-5.0) g/dL 01/05/24 01/05/24 01/06/24 Range/Units 21:21 21:21 06:08 RBC 2.96 L (3.80-5.40) m/uL Hgb 9.4 L (11.4-16.0) gm/dL Hct 28.0 L (34.0-46.0) % RDW 18.1 H (11.5-15.5) % Lymphocytes # 0.6 L (1.0-4.8) k/uL PT (10.0-12.5) sec INR (<1.2) APTT 38.4 H (22.0-30.0) sec Sodium (137-145) mmol/L BUN (7-17) mg/dL Glucose (74-99) mg/dL Magnesium (1.6-2.3) mg/dL AST (14-36) U/L ALT (4-34) U/L Alkaline Phosphatase (38-126) U/L Troponin I 10.300 H* (0.000-0.034) ng/mL Total Protein (6.3-8.2) g/dL Albumin (3.5-5.0) g/dL 01/06/24 01/06/24 01/06/24 Range/Units 06:08 06:08 08:13 RBC (3.80-5.40) m/uL Hgb (11.4-16.0) gm/dL Hct (34.0-46.0) % RDW (11.5-15.5) % Lymphocytes # (1.0-4.8) k/uL PT 14.3 H (10.0-12.5) sec INR 1.4 H (<1.2) APTT 70.2 H (22.0-30.0) sec Sodium 133 L (137-145) mmol/L BUN 6 L (7-17) mg/dL Glucose 64 L (74-99) mg/dL Magnesium 1.1 L (1.6-2.3) mg/dL AST 103 H (14-36) U/L ALT 57 H (4-34) U/L Alkaline Phosphatase 153 H (38-126) U/L Troponin I 10.000 H* (0.000-0.034) ng/mL Total Protein 5.2 L (6.3-8.2) g/dL Albumin 2.6 L (3.5-5.0) g/dL Microbiology - Last 24 Hours (Table) 01/05/24 08:14 Gram Stain - Preliminary Sputum 01/03/24 16:34 Blood Culture - Preliminary Blood
--- NOTE | 2024-01-06 13:35 | US ---
EXAMINATION TYPE: US venous doppler duplex LE BI DATE OF EXAM: 01/06/2024 1:23 PM COMPARISON: NONE CLINICAL INDICATION: Female, 63 years old with history of history of DVT; On IV heparin., TECHNIQUE: The lower extremity deep venous system is examined utilizing real time linear array sonog nick with graded compression, color doppler sonography, and spectral doppler. SIDE PERFORMED: Bilateral FINDINGS: VESSELS IMAGED: Common Femoral Vein Deep Femoral Vein Greater Saphenous Vein * Femoral Vein Popliteal Vein Small Saphenous Vein * Proximal Calf Veins (* superficial vessels) Right Leg: Positive for DVT, there is lack of spectral waveforms and color flow with thrombus identi fied within the proximal to distal popliteal vein with extension into the posterior tibial vein the r emaining right lower extremity veins demonstrates Color Doppler imaging shows patency of the vessels. Spectral waveforms are within normal limits. Left Leg: Negative for DVT, Color Doppler imaging shows patency of the vessels. Spectral waveforms a re within normal limits. IMPRESSION: 1. Positive deep venous thrombosis involving the right popliteal and posterior tibial veins. 2. No evidence of deep vein thrombosis of the left lower extremity. [facility], , 01/06/2024 1:33 PM
[2024-01-06 13:41] VITALS: BMI 32.1
--- NOTE | 2024-01-06 15:17 | P.PN ---
Subjective Progress Note Date: 01/06/24 Principal diagnosis: JENNIFER. Hx of NSCLC, IO held since late Sep for pneumonitis IN fl/u today pt is getting ECHO done, she reports she feels better then she did on admit. Her back is sore from laying in bed, she is anxious at times. Her mouth is dry and she has had a bloody nose that she was able to get stopped. No other acute physical c/o. Objective - Vital Signs Vital signs: Vital Signs Temp 98.2 F 01/06/24 11:27 Pulse 102 H 01/06/24 12:34 Resp 14 01/06/24 11:27 BP 104/59 01/06/24 11:27 Pulse Ox 94 L 01/06/24 11:27 FiO2 Intake & Output 01/05/24 01/06/24 01/06/24 18:59 06:59 18:59 Intake Total 150 179.821 Output Total 550 Balance 150 -370.179 Weight 85 kg Intake: Intake, IV Titration 59.821 Amount Heparin Sod,Pork in 0.45% 59.821 NaCl 25,000 unit In 0.45 % NaCl 1 250ml.bag @ 12 UNITS/KG/HR 9.78 mls/hr IV .Q24H [facility] Rx#: [id number] Oral 150 120 Output: Urine 550 Other: Voiding Method External Catheter External Catheter External Catheter - Constitutional General appearance: Present: average body habitus, cooperative, mild distress - EENT Eyes: Present: anicteric sclerae, EOMI ENT: Present: hearing grossly normal - Respiratory Respiratory: bilateral: CTA, diminished - Cardiovascular Rhythm: regular Heart sounds: normal: S1, S2 Abnormal Heart Sounds: Absent: systolic murmur, diastolic murmur, rub, S3 Gallop, S4 Gallop, click, other - Peripheral edema leg Peripheral Edema: bilateral: None - Gastrointestinal General gastrointestinal: Present: soft - Neurologic Neurologic: Present: CNII-XII intact - Musculoskeletal Musculoskeletal: Present: strength equal bilaterally - Psychiatric Psychiatric: Present: A&O x's 3, appropriate affect, intact judgment & insight - Labs CBC & Chem 7: 01/06/24 06:08 01/06/24 06:08 Labs: Abnormal Lab Results - Last 24 Hours (Table) 01/05/24 01/05/24 01/05/24 Range/Units 13:00 15:41 15:41 RBC 3.15 L (3.80-5.40) m/uL Hgb 10.0 L (11.4-16.0) gm/dL Hct 30.0 L (34.0-46.0) % RDW 18.3 H (11.5-15.5) % Lymphocytes # 0.4 L (1.0-4.8) k/uL PT 14.4 H (10.0-12.5) sec INR 1.4 H (<1.2) APTT (22.0-30.0) sec Sodium (137-145) mmol/L BUN (7-17) mg/dL Glucose (74-99) mg/dL Magnesium (1.6-2.3) mg/dL AST (14-36) U/L ALT (4-34) U/L Alkaline Phosphatase (38-126) U/L Troponin I 4.080 H* (0.000-0.034) ng/mL Total Protein (6.3-8.2) g/dL Albumin (3.5-5.0) g/dL 01/05/24 01/05/24 01/06/24 Range/Units 21:21 21:21 06:08 RBC 2.96 L (3.80-5.40) m/uL Hgb 9.4 L (11.4-16.0) gm/dL Hct 28.0 L (34.0-46.0) % RDW 18.1 H (11.5-15.5) % Lymphocytes # 0.6 L (1.0-4.8) k/uL PT (10.0-12.5) sec INR (<1.2) APTT 38.4 H (22.0-30.0) sec Sodium (137-145) mmol/L BUN (7-17) mg/dL Glucose (74-99) mg/dL Magnesium (1.6-2.3) mg/dL AST (14-36) U/L ALT (4-34) U/L Alkaline Phosphatase (38-126) U/L Troponin I 10.300 H* (0.000-0.034) ng/mL Total Protein (6.3-8.2) g/dL Albumin (3.5-5.0) g/dL 01/06/24 01/06/24 01/06/24 Range/Units 06:08 06:08 08:13 RBC (3.80-5.40) m/uL Hgb (11.4-16.0) gm/dL Hct (34.0-46.0) % RDW (11.5-15.5) % Lymphocytes # (1.0-4.8) k/uL PT 14.3 H (10.0-12.5) sec INR 1.4 H (<1.2) APTT 70.2 H (22.0-30.0) sec Sodium 133 L (137-145) mmol/L BUN 6 L (7-17) mg/dL Glucose 64 L (74-99) mg/dL Magnesium 1.1 L (1.6-2.3) mg/dL AST 103 H (14-36) U/L ALT 57 H (4-34) U/L Alkaline Phosphatase 153 H (38-126) U/L Troponin I 10.000 H* (0.000-0.034) ng/mL Total Protein 5.2 L (6.3-8.2) g/dL Albumin 2.6 L (3.5-5.0) g/dL Microbiology - Last 24 Hours (Table) 01/05/24 08:14 Gram Stain - Preliminary Sputum 01/03/24 16:34 Blood Culture - Preliminary Blood - Imaging and Cardiology Chest x-ray: report reviewed CT Scan - head: report reviewed ECHO report reviewed Assessment and Plan (1) Acute kidney injury Current Visit: Yes Status: Acute Priority: High Code(s): N17.9 - ACUTE KIDNEY FAILURE, UNSPECIFIED SNOMED Code(s): 81342406 (2) DVT (deep venous thrombosis) Current Visit: Yes Status: Acute Priority: Medium Code(s): I82.409 - ACUTE EMBOLISM AND THOMBOS UNSP DEEP VN UNSP LOWER EXTREMITY SNOMED Code(s): 7880448 03 (3) Adenocarcinoma, lung Current Visit: No Status: Acute Priority: High Code(s): C34.90 - MALIGNANT NEOPLASM OF UNSP PART OF UNSP BRONCHUS OR LUNG SNOMED Code(s): 542659441 Plan: JENNIFER -Likely 2/2 dehydration from poor oral intake and URI. Resolved with hydration, on admit creatinine 2.3, GFR 22, today BUN 6 Cr 0.61 -UA negative for UTI, US was neg for hydronephrosis DVT -Diagnosed November/2023, cont on eliquis. Bilateral lower extremity Doppler reports right leg is positive for DVT, left leg is neg. -Initial brain CT noted single hyperdense focus within the posterior right frontal lobe. Suspicious for acute microhemorrhage. Dr. Lilo Bedolla reviewed risk benefit of anticoagulation in the setting of acute DVT. Eliquis has been restarted. Pt does not exhibit any focal neuro deficits. Repeat CT of the brain today reports an impression of no change in the small focus of increased density within the posterior right frontal lobe, no mass effect or midline shift. Suspect the area is a lesion that received SBRT treatment previously -Continue therapeutic dose Eliquis at this time -MRI brain ordered as renal function is improved Metastatic lung adenocarcinoma: -History as dictated in consult -Imfinzi last given on 09/23, tx held due to hospital admissions and suspected IO r/t pneumonitis. -S/P SBRT to solitary brain lesion 10/2023. -Plan was to have repeat CT chest on 01/05 and clinic f/u to further discuss treatment options and goals of care -Kidney function improved, will obtain CT chest w/contrast -Brain MRI for comparison s/p SBRT Doctor attests: I performed a history and physical examination of this patient, developed impression and plan of care. Discussed with dictator. I agree with dictators note, documented as a scribe.
--- NOTE | 2024-01-06 15:45 | CT ---
EXAMINATION TYPE: CT angio chest DATE OF EXAM: 01/06/2024 COMPARISON: CT chest 10/08/2023 CLINICAL INDICATION: Female, 63 years old with history of PE; PHH, R/O Pe TECHNIQUE: CTA scan of the thorax is performed with IV Contrast, patient injected with 70ml mL of Isovue 370, pu lmonary embolism protocol. MIP images are created and reviewed. CT DLP: 452.[address] CTDI: mGy Automated exposure control for dose reduction was used. FINDINGS: There has been interval development of small bilateral pleural effusions, left greater than right. Th ere is been significant progression of the interstitial and scattered groundglass airspace opacificat ion in both lungs. There is marked increased consolidative or masslike opacity in the left lung apex. There is stable bronchiectasis in the lower lobes. There is interval development of an 8 mm nodule in the right upper lobe and a 6.2 mm pleural parench ymal nodule in the right lower lobe. No suspicious nodules seen in the left lung. There is no pneumot horax. There is mild cardiomegaly. Great vessels just millimeters no definite mediastinal, hilar or axillary adenopathy. There are no filling defects within the pulmonary arterial circulation to suggest pulmon hermilo embolism. Limited scanning through the upper abdomen reveals a markedly distended gallbladder. No focal osseous lesions are seen. IMPRESSION: 1. No evidence pulmonary embolus 2. Marked interval increase in the interstitial and airspace process diffusely involving both lungs. Findings consistent with infectious or edematous process. Neoplasm not excluded. 3. Interval increase in consolidation/masslike opacity in the left lung apex. 4. Interval development of small bilateral pleural effusions, left greater than right. 5. Interval development of right lung pulmonary nodules suspicious for recurrent lung cancer and furt her workup is warranted. 6. Distended gallbladder without gallstones although the gallbladder is not imaged in its entirety. [facility], , 01/06/2024 3:42 PM
--- NOTE | 2024-01-06 16:07 | P.PN ---
Subjective Progress Note Date: 01/06/24 63-year-old female who was seen in the emergency department, January 02. The patient apparently came in with left-sided weakness, for 3 days. She apparently was having a poor balance, difficulty concentrating, and dizziness, which is why she came into the emergency room. The patient also apparently recently sustained a fall. The patient is on Eliquis. The patient has a history of lung cancer, and sees Dr. Manley for this. Other medical history includes COPD, diabetes, acid reflux disease, hyperlipidemia, hypertension, hypothyroidism, hepatitis C, and lung cancer. Chest x-ray shows some patchy left midlung airspace disease, potentially consistent with pneumonia. CT scan of the brain showed a single hyperdense focus within the posterior right frontal lobe, potentially concerning for microhemorrhage. A pulmonary ventilation/perfusion lung scan, was indeterminate for pulmonary embolism, and likely related to chronic lung disease. Current labs include a white count 6.7, hemoglobin 9.3, hematocrit 27.8, and platelet count of 152,000. Sodium 136, potassium 3.8, chlorides 107, CO2 26, BUN 18, creatinine 1.07. The patient's procalcitonin level was normal at 0.37. Glucose is 106. Urinary Legionella antigen, was negative. UA was negative. On 01/06/2024, the patient is being seen for a follow-up. The patient remains on oxygen at 60 Dyspamet 6 L nasal cannula with a pulse ox of 94%. The patient has history of non small cell lung cancer under the care of medical oncology. The patient has undergone a previous left lower lobe wedge resection and the pathology was consistent with adenocarcinoma and the patient had no regional lymph node and the patient was given a T1 c N0 M0 disease. Upon subsequent surveillance, the patient had a new right midlung pulmonary nodule and also suspicious uptake in the left infrahilar and mediastinal lymph nodes and subsequent PET/CT was also positive for mediastinal and left cervical and left infrahilar lymphadenopathy and an ultrasound-guided of the left labs lymph node neck biopsy was positive for metastatic adenocarcinoma, PD-L1 expression was 90%, NGS and liquid biopsy was negative for any targeted mutation and the patient was given a combination of cisplatin, Alimta and concurrent radiation therapy. Subsequently, the patient was started on Imfinzi and subsequent follow-up showed that the patient had a 8 mm right frontal lobe lesion in the brain and most recent CAT scan of the chest from 09/24/2023 showed evidence of pneumonitis and based on that Imfinzi was held. She was given systemic steroids. SBRT to the solitary brain lesion was done on October 2023. The patient also was in [place] where she was diagnosed having left lower extremity DVT and for that reason she was started on anticoagulation with Eliq uis. Nevertheless, during this current admission, she presented to us with 3- day history of left-sided weakness and the patient had an abnormal CAT scan of the brain and review of the CAT scans showed a small focus of increased density in the posterior right frontal lobe which could represent a small area of microhemorrhage. MRI of the brain was recommended. During this current admission, the patient also had a VQ scan that showed intermediate probability for pulmonary embolism. Echocardiogram done today showed a preserved LV function with an EF of around 55 to 60%. RV size and function was within normal and there was only a mild degree of pulmonary hypertension. The patient has COPD, diabetes mellitus, hyperlipidemia and hypertension. The EKG showed a normal sinus rhythm. Objective - Vital Signs Vital signs: Vital Signs Temp 98.2 F 01/06/24 11:27 Pulse 102 H 01/06/24 12:34 Resp 14 01/06/24 11:27 BP 104/59 01/06/24 11:27 Pulse Ox 94 L 01/06/24 11:27 FiO2 Intake & Output 01/05/24 01/06/24 01/06/24 18:59 06:59 18:59 Intake Total 150 179.821 Output Total 550 Balance 150 -370.179 Weight 85 kg Intake: Intake, IV Titration 59.821 Amount Heparin Sod,Pork in 0.45% 59.821 NaCl 25,000 unit In 0.45 % NaCl 1 250ml.bag @ 12 UNITS/KG/HR 9.78 mls/hr IV .Q[facility]H [facility] Rx#: [id number] Oral 150 120 Output: Urine 550 Other: Voiding Method External Catheter External Catheter External Catheter - Exam No acute distress, oriented 3. Patient is currently on 6 L nasal cannula. HEENT examination is grossly unremarkable. Neck supple. Full range of motion. No adenopathy thyromegaly or neck vein distention. Cardiovascular examination reveals regular rhythm rate. S1-S2 normal. No S3 or S4. No discernible murmur noted. Lungs reveal scattered bilateral mild/moderate expiratory wheezes and rhonchi. No crackles. Breath sounds equal bilaterally. Abdomen soft bowel sounds are heard. No masses or tenderness. Extremities are intact. No cyanosis clubbing or edema. Skin is without rash or lesion. Neurologic examination reveals mild left-sided weakness. - Labs CBC & Chem 7: 01/06/24 06:08 01/06/24 06:08 Labs: Abnormal Lab Results - Last 24 Hours (Table) 01/05/24 01/05/24 01/05/24 Range/Units 13:00 15:41 15:41 RBC 3.15 L (3.80-5.40) m/uL Hgb 10.0 L (11.4-16.0) gm/dL Hct 30.0 L (34.0-46.0) % RDW 18.3 H (11.5-15.5) % Lymphocytes # 0.4 L (1.0-4.8) k/uL PT 14.4 H (10.0-12.5) sec INR 1.4 H (<1.2) APTT (22.0-30.0) sec Sodium (137-145) mmol/L BUN (7-17) mg/dL Glucose (74-99) mg/dL Magnesium (1.6-2.3) mg/dL AST (14-36) U/L ALT (4-34) U/L Alkaline Phosphatase (38-126) U/L Troponin I 4.080 H* (0.000-0.034) ng/mL Total Protein (6.3-8.2) g/dL Albumin (3.5-5.0) g/dL 01/05/24 01/05/24 01/06/24 Range/Units 21:21 21:21 06:08 RBC 2.96 L (3.80-5.40) m/uL Hgb 9.4 L (11.4-16.0) gm/dL Hct 28.0 L (34.0-46.0) % RDW 18.1 H (11.5-15.5) % Lymphocytes # 0.6 L (1.0-4.8) k/uL PT (10.0-12.5) sec INR (<1.2) APTT 38.4 H (22.0-30.0) sec Sodium (137-145) mmol/L BUN (7-17) mg/dL Glucose (74-99) mg/dL Magnesium (1.6-2.3) mg/dL AST (14-36) U/L ALT (4-34) U/L Alkaline Phosphatase (38-126) U/L Troponin I 10.300 H* (0.000-0.034) ng/mL Total Protein (6.3-8.2) g/dL Albumin (3.5-5.0) g/dL 01/06/24 01/06/24 01/06/24 Range/Units 06:08 06:08 08:13 RBC (3.80-5.40) m/uL Hgb (11.4-16.0) gm/dL Hct (34.0-46.0) % RDW (11.5-15.5) % Lymphocytes # (1.0-4.8) k/uL PT 14.3 H (10.0-12.5) sec INR 1.4 H (<1.2) APTT 70.2 H (22.0-30.0) sec Sodium 133 L (137-145) mmol/L BUN 6 L (7-17) mg/dL Glucose 64 L (74-99) mg/dL Magnesium 1.1 L (1.6-2.3) mg/dL AST 103 H (14-36) U/L ALT 57 H (4-34) U/L Alkaline Phosphatase 153 H (38-126) U/L Troponin I 10.000 H* (0.000-0.034) ng/mL Total Protein 5.2 L (6.3-8.2) g/dL Albumin 2.6 L (3.5-5.0) g/dL Microbiology - Last 24 Hours (Table) 01/05/24 08:14 Gram Stain - Preliminary Sputum 01/03/24 16:34 Blood Culture - Preliminary Blood Assessment and Plan Plan: Acute left-sided weakness, with possible microhemorrhage versus stroke, right frontal lobe. History of pulmonary adenocarcinoma, none small cell lung cancer, diagnosed April 2022.. The patient currently has metastatic disease. The patient has completed a combination of carboplatin and Alimta followed by Imfinzi. The patient developed PING PONG [employer]SEMBL[employer] metastases in the left frontal and the patient received SBRT which she completed in October 2023. 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 Hyponatremia, resolved. [id number] diabetes mellitus. Hyperlipidemia. Chronic hypoxemic respiratory failure. History of hypertension. 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 Continue attempts to wean down the FiO2, currently on 6 L Continue Symbicort Continue albuterol HFA [id number] 4 times a day Rest of the medication were reviewed. No other change from the pulmonary standpoint. Will continue to follow.
[2024-01-06 16:37] LABS: Glucose,Whole Blood 89 mg/dL (70-110)
[2024-01-06 20:21] LABS: Glucose,Whole Blood 129 mg/dL (70-110)
[2024-01-07] MEDS ORDERED: VANCOMYCIN IV PER PHARMACY 1 EACH MISC MISCELLANE PRN (02:16)
[2024-01-07] MEDS ORDERED: VANCOMYCIN 1,500 MG in SODIUM CHLORIDE 0.9% 500 ML 500 ML IVPB SCH (03:00)
[2024-01-07] MEDS: CEFEPIME 2 GM in SODIUM CHLORIDE 0.9% 100 ML IVPB SCH (03:32)
[2024-01-07] MEDS: FLUCONAZOLE 100 MG TAB PO SCH (03:59)
[2024-01-07 06:20] LABS: Glucose,Whole Blood 115 mg/dL (70-110)
[2024-01-07 07:01] LABS: Anisocytosis Slight; Basophils # (A) 0.1 k/uL (0-0.2); Basophils % (A) 1 %; Eosinophils # (A) 0.3 k/uL (0-0.7); Eosinophils % (A) 3 %; HCT 27.3 % (34.0-46.0); HGB 8.9 gm/dL (11.4-16.0); Hypochromasia Slight; Lymphocytes # (A) 0.4 k/uL (1.0-4.8); Lymphocytes % (A) 4 %; MCHC 32.7 g/dL (31.0-37.0); MCV 94.7 fL (80.0-100.0); Mean Platelet Volume 7.4; Monocytes # (A) 0.7 k/uL (0-1.0); Monocytes % (A) 7 %; Neutrophils # (A) 8.1 k/uL (1.3-7.7); Neutrophils % (A) 83 %; Platelet Count 214 k/uL (150-450); Poikilocytosis Slight; RBC 2.89 m/uL (3.80-5.40); RDW 18.1 % (11.5-15.5); WBC 9.7 k/uL (3.8-10.6)
[2024-01-07 08:29] LABS: ALT 50 U/L (4-34); AST 85 U/L (14-36); African American GFR (CKD) >90 (>60 ml/min/1.73 sqM); Albumin 2.6 g/dL (3.5-5.0); Alkaline Phosphatase 166 U/L (38-126); Anion Gap 5 mmol/L; Blood Urea Nitrogen 6 mg/dL (7-17); Calcium 8.9 mg/dL (8.4-10.2); Carbon Dioxide 29 mmol/L (22-30); Chloride 96 mmol/L (98-107); Glucose 93 mg/dL (74-99); Magnesium 1.8 mg/dL (1.6-2.3); Non-African American GFR(CKD) >90 (>60 ml/min/1.73 sqM); Potassium 3.3 mmol/L (3.5-5.1); Sodium 130 mmol/L (137-145); Total Bilirubin 0.9 mg/dL (0.2-1.3); Total Protein 5.2 g/dL (6.3-8.2)
[2024-01-07] MEDS: VANCOMYCIN 1,500 MG in SODIUM CHLORIDE 0.9% 500 ML 500 ML IVPB SCH (08:50)
[2024-01-07] MEDS ORDERED: FLUCONAZOLE 100 MG TAB PO SCH (09:00)
[2024-01-07] MEDS: HYDROmorphone 1 MG/ML 1 ML SYRINGE IVP PRN (09:05)
[2024-01-07] MEDS ORDERED: RX INFO: IV CONTRAST WAS GIVEN 1 EACH MISC MISCELLANE PRN (10:34)
[2024-01-07 10:35] LABS: NT-Pro-B-Type Natriuretic Pept 1940 pg/mL
[2024-01-07 11:37] LABS: Glucose,Whole Blood 92 mg/dL (70-110)
--- NOTE | 2024-01-07 12:38 | P.PN ---
Subjective HISTORY OF PRESENT ILLNESS: This is a 63-year-old female with a past medical history significant for lung cancer, COPD, diabetes, hypertension, hyperlipidemia, and hypothyroidism. Patient does not follow with a carbon grinder. We have been asked to see the patient in consultation for elevated troponins. Patient examined at the bedside. Patient initially presented to the hospital with left-sided weakness, difficulty concentrating, and dizziness. Patient developed chest discomfort yesterday. EKG completed without any signs of acute ischemia. She was started on IV heparin. Patient is restless this morning the time of examination. She denies any chest pain. Per nursing, patients oxygenation requirements have increased and patient is currently on a nonrebreather. Patient underwent repeat brain CT this morning without any change and possible microhemorrhage in posterior right frontal white matter. DIAGNOSTICS: - EKG reveals sinus tachycardia with no signs of acute ischemia - Chest xray marked acute cardiopulmonary disease with no interval change - CT of the brain: No change and small focus of increased density in the posterior right frontal white matter. Could represent small microhemorrhage. Unchanged. - VQ scan indeterminate for pulmonary embolism. Findings likely related to chronic lung disease. - Laboratory data: WBC 9.5. Hemoglobin 9.4. Platelet count 193. Sodium 135. Potassium 3.3. BUN 7. Creatinine 0.72. AST 51. ALT 51. proBNP 148. Troponin 0.073. 0.093. 4.080. 10.300. - Current home cardiac medications include Eliquis 5 mg twice a day, amlodipine 5 mg daily, aspirin 81 mg daily - No previous echocardiogram, stress test, or cardiac catheterization available in EMR for review 01/07/2024 Patient examined this morning at the bedside. Patient without complaints of chest pain or pressure. Reports improvement in shortness of breath. She remains on high flow nasal cannula. She remains on IV heparin. Echocardiogram completed revealing ejection fraction 55 to 60%, mild MR, mild TR, and mild pulmonary hypertension. Lower extremity Doppler revealed right leg positive for DVT involving right popliteal and posterior tibial veins. No evidence of DVT on left lower extremity. CTA was completed which was negative for pulmonary embolism. It did reveal marked interval increase in interstitial and airspace process diffusely involving both lungs. Findings consistent with infectious or edematous process. Neoplasm not excluded. Interval increase in consolidation/masslike opacity in left lung apex. Interval development of small bilateral pleural effusions, left greater than right. Interval development of right lung pulmonary nodule suspicious for recurrent lung cancer. Distended ga llbladder without gallstones. PHYSICAL EXAM: VITAL SIGNS: Reviewed. GENERAL: Well-developed in no acute distress. HEENT: Head is normocephalic. Pupils are equal, round. Sclerae anicteric. Mucous membranes of the mouth are moist. Neck supple. No JVD or thyromegaly LUNGS: Respirations even and unlabored. Lungs essentially clear to auscultation bilaterally. HEART: Regular rate and rhythm. S1 and S2 heard. ABDOMEN: Soft. Nondistended. Nontender. EXTREMITIES: Normal range of motion. No clubbing or cyanosis. Peripheral pulses intact. No lower extremity edema NEUROLOGIC: Awake and alert. Oriented x 3. ASSESSMENT: Acute left-sided weakness Possible microhemorrhage in posterior right frontal white matter, per CT brain Non-STEMI Right lower extremity DVT Acute kidney injury, resolved Left-sided pneumonia History of small cell lung cancer, 2022 Acute on chronic hypoxic respiratory failure COPD on home oxygen Hypertension Hyperlipidemia Diabetes History of DVT, on Eliquis outpatient PLAN: Continue aspirin and atorvastatin No plans for cardiac catheterization at this time due to patient's other acute conditions. Continue with medical management. IV heparin can be discontinued from a cardiac standpoint and patient can be resumed on Eliquis. This was discussed with Dr. Pérez and will defer anticoagulation to primary medicine. No further inpatient recommendations from a cardiac standpoint We will sign off. Please reconsult if needed. Nurse practitioner note has been reviewed by physician. Signing provider agrees with the documented findings, assessment, and plan of care documented by [employer] as a scribe. Objective - Vital Signs Vital signs: Vital Signs Temp 99.5 F 01/07/24 08:45 Pulse 106 H 01/07/24 08:54 Resp 16 01/07/24 08:45 BP 123/72 01/07/24 08:45 Pulse Ox 100 01/07/24 08:45 FiO2 Intake & Output 01/06/24 01/07/24 01/07/24 18:59 06:59 18:59 Intake Total 190.179 225.375 Output Total 500 1150 Balance -309.821 -1150 225.375 Weight 85 kg 84.5 kg Intake: Intake, IV Titration 190.179 225.375 Amount Heparin Sod,Pork in 0.45% 190.179 225.375 NaCl 25,000 unit In 0.45 % NaCl 1 250ml.bag @ 12 UNITS/KG/HR 9.78 mls/hr IV .Q24H [facility] Rx#: [id number] Output: Urine 500 1150 Other: Voiding Method External Catheter External Catheter External Catheter # Bowel Movements 0 - Labs CBC & Chem 7: 01/07/24 06:20 01/07/24 06:20 Labs: Abnormal Lab Results - Last 24 Hours (Table) 01/06/24 01/06/24 01/06/24 Range/Units 14:20 18:24 20:20 RBC (3.80-5.40) m/uL Hgb (11.4-16.0) gm/dL Hct (34.0-46.0) % RDW (11.5-15.5) % Neutrophils # (1.3-7.7) k/uL Lymphocytes # (1.0-4.8) k/uL APTT 34.9 H (22.0-30.0) sec Sodium (137-145) mmol/L Potassium (3.5-5.1) mmol/L Chloride (98-107) mmol/L BUN (7-17) mg/dL POC Glucose (mg/dL) 129 H (70-110) mg/dL Magnesium 2.5 H (1.6-2.3) mg/dL AST (14-36) U/L ALT (4-34) U/L Alkaline Phosphatase (38-126) U/L Troponin I (0.000-0.034) ng/mL Total Protein (6.3-8.2) g/dL Albumin (3.5-5.0) g/dL 01/06/24 01/07/24 01/07/24 Range/Units 22:30 06:19 06:20 RBC 2.89 L (3.80-5.40) m/uL Hgb 8.9 L (11.4-16.0) gm/dL Hct 27.3 L (34.0-46.0) % RDW 18.1 H (11.5-15.5) % Neutrophils # 8.1 H (1.3-7.7) k/uL Lymphocytes # 0.4 L (1.0-4.8) k/uL APTT 75.1 H (22.0-30.0) sec Sodium (137-145) mmol/L Potassium (3.5-5.1) mmol/L Chloride (98-107) mmol/L BUN (7-17) mg/dL POC Glucose (mg/dL) 115 H (70-110) mg/dL Magnesium (1.6-2.3) mg/dL AST (14-36) U/L ALT (4-34) U/L Alkaline Phosphatase (38-126) U/L Troponin I (0.000-0.034) ng/mL Total Protein (6.3-8.2) g/dL Albumin (3.5-5.0) g/dL 01/07/24 01/07/24 01/07/24 Range/Units 06:20 06:20 07:52 RBC (3.80-5.40) m/uL Hgb (11.4-16.0) gm/dL Hct (34.0-46.0) % RDW (11.5-15.5) % Neutrophils # (1.3-7.7) k/uL Lymphocytes # (1.0-4.8) k/uL APTT 103.3 H* (22.0-30.0) sec Sodium 130 L (137-145) mmol/L Potassium 3.3 L (3.5-5.1) mmol/L Chloride 96 L (98-107) mmol/L BUN 6 L (7-17) mg/dL POC Glucose (mg/dL) (70-110) mg/dL Magnesium (1.6-2.3) mg/dL AST 85 H (14-36) U/L ALT 50 H (4-34) U/L Alkaline Phosphatase 166 H (38-126) U/L Troponin I 3.840 H* (0.000-0.034) ng/mL Total Protein 5.2 L (6.3-8.2) g/dL Albumin 2.6 L (3.5-5.0) g/dL Microbiology - Last 24 Hours (Table) 01/05/24 08:14 Gram Stain - Final Sputum Sputum Culture - Final 01/03/24 16:34 Blood Culture - Preliminary Blood
[2024-01-07] MEDS: POTASSIUM CHLORIDE ER 20 MEQ TAB.ER PO STA (12:39)
[2024-01-07] MEDS: methylPREDNISolone SOD SUCCI 125 MG/2 ML VIAL IV SCH (12:46)
--- NOTE | 2024-01-07 13:56 | P.PN ---
Subjective Progress Note Date: 01/07/24 63-year-old female who was seen in the emergency department, January 02. The patient apparently came in with left-sided weakness, for 3 days. She apparently was having a poor balance, difficulty concentrating, and dizziness, which is why she came into the emergency room. The patient also apparently recently sustained a fall. The patient is on Eliquis. The patient has a history of lung cancer, and sees Dr. Manley for this. Other medical history includes COPD, diabetes, acid reflux disease, hyperlipidemia, hypertension, hypothyroidism, hepatitis C, and lung cancer. Chest x-ray shows some patchy left midlung airspace disease, potentially consistent with pneumonia. CT scan of the brain showed a single hyperdense focus within the posterior right frontal lobe, potentially concerning for microhemorrhage. A pulmonary ventilation/perfusion lung scan, was indeterminate for pulmonary embolism, and likely related to chronic lung disease. Current labs include a white count 6.7, hemoglobin 9.3, hematocrit 27.8, and platelet count of 152,000. Sodium 136, potassium 3.8, chlorides 107, CO2 26, BUN 18, creatinine 1.07. The patient's procalcitonin level was normal at 0.37. Glucose is 106. Urinary Legionella antigen, was negative. UA was negative. On 01/06/2024, the patient is being seen for a follow-up. The patient remains on oxygen at 60 Dyspamet 6 L nasal cannula with a pulse ox of 94%. The patient has history of non small cell lung cancer under the care of medical oncology. The patient has undergone a previous left lower lobe wedge resection and the pathology was consistent with adenocarcinoma and the patient had no regional lymph node and the patient was given a T1 c N0 M0 disease. Upon subsequent surveillance, the patient had a new right midlung pulmonary nodule and also suspicious uptake in the left infrahilar and mediastinal lymph nodes and subsequent PET/CT was also positive for mediastinal and left cervical and left infrahilar lymphadenopathy and an ultrasound-guided of the left labs lymph node neck biopsy was positive for metastatic adenocarcinoma, PD-L1 expression was 90%, NGS and liquid biopsy was negative for any targeted mutation and the patient was given a combination of cisplatin, Alimta and concurrent radiation therapy. Subsequently, the patient was started on Imfinzi and subsequent follow-up showed that the patient had a 8 mm right frontal lobe lesion in the brain and most recent CAT scan of the chest from 09/24/2023 showed evidence of pneumonitis and based on that Imfinzi was held. She was given systemic steroids. SBRT to the solitary brain lesion was done on October 2023. The patient also was in [place] where she was diagnosed having left lower extremity DVT and for that reason she was started on anticoagulation with Eliq uis. Nevertheless, during this current admission, she presented to us with 3- day history of left-sided weakness and the patient had an abnormal CAT scan of the brain and review of the CAT scans showed a small focus of increased density in the posterior right frontal lobe which could represent a small area of microhemorrhage. MRI of the brain was recommended. During this current admission, the patient also had a VQ scan that showed intermediate probability for pulmonary embolism. Echocardiogram done today showed a preserved LV function with an EF of around 55 to 60%. RV size and function was within normal and there was only a mild degree of pulmonary hypertension. The patient has COPD, diabetes mellitus, hyperlipidemia and hypertension. The EKG showed a normal sinus rhythm. On 01/07/2024, the patient is being seen for a follow-up. The patient is still hypoxic. Overnight, the patient was brought down to 12 L nasal cannula and currently she is down to 9 L. Based on history, I did some further investigation. I ordered a Doppler of lower extremity and the patient was found to have a positive DVT in the right lower extremity involving the right popliteal and the posterior tibial veins. I also obtain a CT of the chest that showed no evidence of any pulm embolism. There was evidence of interstitial and airspace process diffuse in both lungs which had markedly increased and this is probably a reflection of pneumonitis probably due to immunotherapy as the patient was taking Imfinzi on outpatient basis. Possibility of infection versus neoplasm cannot be completely excluded and the patient is currently on IV Solu- Medrol. There is also interval increase in the consolidation/masslike opacity in the left lung apex and interval development of small bilateral pleural e ffusion left more than right and there is also interval development of a right lung pulmonary nodule suspicious for recurrent/progressive lung cancer. The gallbladder was also distended without gallstones. Noted the patient has metastatic pulmonary adenocarcinoma and the patient was taken off Imfinzi due to concerns of pneumonitis. She also has an acute CVA. The patient remains on IV heparin. There was a concern of a BOAT CARPENTER bleed and the patient has not been committed to oral anticoagulants yet and the patient remains on IV heparin. There is a small focus of increased density within the posterior right frontal lobe which could represent small microhemorrhage versus mass to the brain. Not ed the patient had previous history of BOAT CARPENTER metastases and the patient has received SBRT to the brain lesion back in October 2023. Oncology is on the case. The patient was a count of 9.7, he was 8.9 and a platelet count of 214. BUN 6 with a creatinine of 0.67 and sodium levels at 130. Troponins have been downtrending is currently down to 3.8. The viral screen was done yesterday and essentially negative. Objective - Vital Signs Vital signs: Vital Signs Temp 99.5 F 01/07/24 08:45 Pulse 106 H 01/07/24 08:54 Resp 16 01/07/24 08:45 BP 123/72 01/07/24 08:45 Pulse Ox 100 01/07/24 08:45 FiO2 Intake & Output 01/06/24 01/07/24 01/07/24 18:59 06:59 18:59 Intake Total 190.179 225.375 Output Total 500 1150 Balance -309.821 -1150 225.375 Weight 85 kg 84.5 kg Intake: Intake, IV Titration 190.179 225.375 Amount Heparin Sod,Pork in 0.45% 190.179 225.375 NaCl 25,000 unit In 0.45 % NaCl 1 250ml.bag @ 12 UNITS/KG/HR 9.78 mls/hr IV .Q24H [facility] Rx#: [id number] Output: Urine 500 1150 Other: Voiding Method External Catheter External Catheter External Catheter # Bowel Movements 0 - Exam No acute distress, oriented 3. Patient is currently on 7 L nasal cannula. HEENT examination is grossly unremarkable. Neck supple. Full range of motion. No adenopathy thyromegaly or neck vein distention. Cardiovascular examination reveals regular rhythm rate. S1-S2 normal. No S3 or S4. No discernible murmur noted. Lungs reveal scattered bilateral mild/moderate expiratory wheezes and rhonchi. No crackles. Breath sounds equal bilaterally. Abdomen soft bowel sounds are heard. No masses or tenderness. Extremities are intact. No cyanosis clubbing or edema. Skin is without rash or lesion. Neurologic examination reveals mild left-sided weakness. - Labs CBC & Chem 7: 01/07/24 06:20 01/07/24 06:20 Labs: Abnormal Lab Results - Last 24 Hours (Table) 01/06/24 01/06/24 01/06/24 Range/Units 14:20 18:24 20:20 RBC (3.80-5.40) m/uL Hgb (11.4-16.0) gm/dL Hct (34.0-46.0) % RDW (11.5-15.5) % Neutrophils # (1.3-7.7) k/uL Lymphocytes # (1.0-4.8) k/uL APTT 34.9 H (22.0-30.0) sec Sodium (137-145) mmol/L Potassium (3.5-5.1) mmol/L Chloride (98-107) mmol/L BUN (7-17) mg/dL POC Glucose (mg/dL) 129 H (70-110) mg/dL Magnesium 2.5 H (1.6-2.3) mg/dL AST (14-36) U/L ALT (4-34) U/L Alkaline Phosphatase (38-126) U/L Troponin I (0.000-0.034) ng/mL Total Protein (6.3-8.2) g/dL Albumin (3.5-5.0) g/dL 01/06/24 01/07/24 01/07/24 Range/Units 22:30 06:19 06:20 RBC 2.89 L (3.80-5.40) m/uL Hgb 8.9 L (11.4-16.0) gm/dL Hct 27.3 L (34.0-46.0) % RDW 18.1 H (11.5-15.5) % Neutrophils # 8.1 H (1.3-7.7) k/uL Lymphocytes # 0.4 L (1.0-4.8) k/uL APTT 75.1 H (22.0-30.0) sec Sodium (137-145) mmol/L Potassium (3.5-5.1) mmol/L Chloride (98-107) mmol/L BUN (7-17) mg/dL POC Glucose (mg/dL) 115 H (70-110) mg/dL Magnesium (1.6-2.3) mg/dL AST (14-36) U/L ALT (4-34) U/L Alkaline Phosphatase (38-126) U/L Troponin I (0.000-0.034) ng/mL Total Protein (6.3-8.2) g/dL Albumin (3.5-5.0) g/dL 01/07/24 01/07/24 01/07/24 Range/Units 06:20 06:20 07:52 RBC (3.80-5.40) m/uL Hgb (11.4-16.0) gm/dL Hct (34.0-46.0) % RDW (11.5-15.5) % Neutrophils # (1.3-7.7) k/uL Lymphocytes # (1.0-4.8) k/uL APTT 103.3 H* (22.0-30.0) sec Sodium 130 L (137-145) mmol/L Potassium 3.3 L (3.5-5.1) mmol/L Chloride 96 L (98-107) mmol/L BUN 6 L (7-17) mg/dL POC Glucose (mg/dL) (70-110) mg/dL Magnesium (1.6-2.3) mg/dL AST 85 H (14-36) U/L ALT 50 H (4-34) U/L Alkaline Phosphatase 166 H (38-126) U/L Troponin I 3.840 H* (0.000-0.034) ng/mL Total Protein 5.2 L (6.3-8.2) g/dL Albumin 2.6 L (3.5-5.0) g/dL Microbiology - Last 24 Hours (Table) 01/05/24 08:14 Gram Stain - Final Sputum Sputum Culture - Final 01/03/24 16:34 Blood Culture - Preliminary Blood Assessment and Plan Plan: Acute left-sided weakness, with possible microhemorrhage versus stroke versus BOAT CARPENTER metastases, right frontal lobe. Neurology and oncology are both on the case and the patient remains on IV heparin for now. History of pulmonary adenocarcinoma, none small cell lung cancer, diagnosed April 2022.. The patient currently has metastatic disease. The patient has completed a combination of carboplatin and Alimta followed by Imfinzi. The patient developed BOAT CARPENTER metastases in the left frontal and the patient received SBRT which she completed in October 2023. The patient was taken off Imfinzi and treated with systemic steroid due to immunotherapy induced pneumonitis Acute on chronic hypoxic respiratory failure with diffuse interstitialAnd airspace process involving both lungs. Rule out Imfinzi induced pneumonitis versus infection. Rule out progression of her disease as the patient has interval increase in the consolidation/masslike opacity in the left apex and interval development of right lung pulmonary nodule suspicious for malignancy. There is no evidence of any pulmonary embolism. The patient is currently on 7 L of oxygen by nasal cannula. 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 Hyponatremia, resolved. [id number] diabetes mellitus. Hyperlipidemia. Chronic hypoxemic respiratory failure. History of hypertension. Plan: Continue IV heparin for now, discussed with neurology regarding the possibility of transitioning this patient to oral anticoagulants. Doppler of the right lower extremity shows a DVT of the popliteal/femoral vein CT angiogram showed no evidence of any pulmonary embolism. Findings are consistent with progression of lung cancer and immunotherapy induced pneumonitis and the patient is currently on IV Solu-Medrol. Monitor weakness and watch for any signs of brain bleed Will need an MRI of the brain May go back to anticoagulation if there is no clear evidence of any BOAT CARPENTER bleed, otherwise alternatives need to be considered including placement of an IVC filter. Continue attempts to wean down the FiO2, currently on 7 L Continue Symbicort Continue albuterol HFA [id number] 4 times a day Continue IV cefepime and vancomycin as empiric antibiotic coverage Rest of the medication were reviewed. No other change from the pulmonary standpoint. Will continue to follow. Prognosis poor based on above-mentioned comorbidities and presence of metastatic pulm adenocarcinoma.
--- NOTE | 2024-01-07 14:15 | P.PN ---
Subjective Progress Note Date: 01/07/24 Patient is a 63-year-old female with hypertension, hyperlipidemia, diabetes (controlled with diet), COPD (on home oxygen for 2 L GERD, history of lung CA diagnosed in April 2022 (with history of immunotherapy and radiation being seen by Dr. Manley) and DVT (on Eliquis) who came in for generalized weakness. Patient reported 3 to 4 weeks ago, she began to experience left hip pain that was intermittent dull nonradiating to an intensity of 8 to 7 out of 10 after being admitted for DVT of the left lower extremity. She went to the ER during that time in another facility and was told that it was a muscle sprain that only required bedrest. However, on 12/27 hip pain increased severity of 10 out of 10 and was intolerable which led the patient to seek care in another ED. She was prescribed morphine IM, a muscle relaxer and advised to continue her home tramadol. Her pain was controlled throughout the week but she noticed that she became generally weak with associated lethargy which led her to be wheelchair- bound and could not perform her usual ADLs including eating or drinking. On Sunday 12/31 she also experienced a fall but she was able to catch herself and did not lose consciousness and sat down on the bathroom floor for about an hour. Patient and patient's family decided not to seek care at the time. However, because the weakness was persistent and did not go away, family and patient decided to seek care today. She denied changes in vision, tremors, facial asymmetry, chest pain, shortness of breath, calf tenderness, fever, chills, sweats, dysuria, hematuria, nausea, vomiting, diarrhea, recent travel or recent sick contacts. In the ER, chest x-ray shows left midlung airspace opacities. CT brain shows hyperdense focus on posterior right frontal lobe with suspicion for acute microhemorrhage, no evidence of midline shift or edema. EKG shows sinus rhythm with a rate of [address]-T changes low voltage good R wave progression QTc 422 WBC 9.6 hemoglobin 10.4 MCV 95 platelet count 196 sodium 131 potassium 3.9 chloride 96 bicarb 22 BUN 33 creatinine 2.33 glucose 143 plasma lactic acid 3.7 phosphorus 4.9 AST 56 ALT 54 ALP 137 troponin 0.073 albumin 3.5. On admission, patient was afebrile at 97.5 pulse rate 100 respiratory 20 blood pressure 98/54 O2 saturation 97% 01/04/2024 patient seen and examined at bedside. Patient reported that she has a cough that is productive with a sore throat. Overnight her troponin increased from 0.07-0.09 with no chest pain but noted increased oxygen demand and tachycardia. Repeat CT of the brain shows no change. V/q. perfusion scan done shows indeterminate for pulmonary embolism and findings are more likely related to chronic lung disease. Chest x-ray shows lungs with mild interval worsening of the focal opacities. WBC 7 hemoglobin 9.2 MCV 96 platelet count 166,000 sodium 136 potassium 3.3 BUN 18 creatinine 1.07 glucose 105 A1c 7.6 calcium 8.9 phosphorus 3.5 magnesium 1.3 AST 51 ALT 51 alk phos 130 albumin 2.7 01/05/2024 Patient seen and examined at bedside. No acute events overnight. Still having worsening respiratory distress. Also complaining of chest pain which quickly resolved and now having mostly back pain. EKG independently interpreted showed only shows sinus rhythm. No significant ST-T wave changes. Troponin elevated up to 4, repeat pending. Given aspirin 325. Started on low intensity heparin drip. Repeat CT head tomorrow. Cardiology also consulted. On telemetry monitoring. 01/06/2024 patient seen and examined at bedside. Patient reported to be anxious and uncomfortable due to back pain. Patient oxygenation requirement increased to 6 L and now on rebreather. WBC 9.5 hemoglobin 9.4 PT 14.3 INR 1.4 PTT 70.2 sodium 133 AST 103 ALT 57 alk phos 153 troponin 10 albumin 2.6. Chest x-ray shows ongoing bilateral patchy and interstitial infiltrates with minimal change from yesterday. Repeat brain CT show small microhemorrhages and small focus of increased density within the posterior right frontal lobe with no change. Echocardiogram shows left ventricular ejection fraction of 55 to 60% with no wall thickness and normal wall motion. 01/07/2024 patient seen and examined at bedside. Patient noted to have discomfort due to back pain. Currently not having any chest pain, leg tenderness or shortness of breath at this time. She is currently on nasal cannula 12 L. Overnight, patient noted to have increased O2 demand and was placed on nonrebreather once again after being on nasal cannula for a few hours. WBC 9.7 hemoglobin 8.9 platelet count 214,000 PTT 103.3 sodium 130 potassium 3.3 chloride 96 BUN 6 creatinine 0.67 glucose 115 magnesium 1.8 calcium 8.9 AST 85 ALT 50 alk phos 166 BNP 1940 albumin 2.6 TSH 0.654 Review of systems: Pertinent positives and negatives as discussed in HPI, a complete review of systems was performed and all other systems are negative. Pertinent imaging and labs reviewed. Physical examination: Vital signs reviewed General: non toxic, no distress, on nasal cannula 12 L Derm: no unusual rashes/lesions, warm Head: atraumatic, normocephalic, symmetric Eyes: EOMI, anicteric sclera, pupils equal round reactive to light ENT: Nose and ears atraumatic Neck: No cervical lymphadenopathy, trachea midline, supple Mouth: no lip lesion, mucus membranes moist, some mild erythema of the throat Cardiovascular: S1S2 tachycardic, no murmur Lungs: CTA bilateral, no rhonchi, no rales, no accessory muscle use Abdominal: soft, nontender to palpation, no guarding Ext: muscle strength 5 out of 5 in all 4 extremities grossly, no gross muscle atrophy, no contractures, positive dorsalis pedis pulse bilateral, no extremity edema Neuro: CN II-XI grossly intact, no gross focal neuro deficits Psych: Alert and oriented x3, appropriate affect and mood Assessment/Plan: 63-year-old woman who came in for generalized weakness with re cent new medications for left hip pain. Was found to have JENNIFER #. Acute NSTEMI #. Debility #. JENNIFER, resolved #. Hypovolemic hyponatremia, improving #. Acute normocytic anemia, stable IV fluids discontinued. Oral intake encouraged Aspirin 81 mg p.o. daily and Lipitor 40 mg p.o. daily Echocardiogram shows left ventricular ejection fraction of 55 to 60% with no wall thickness and normal wall motion. Venous Doppler positive for DVT of right lower extremity Chest CTA showed no evidence of pulmonary embolus. Has marked interval increase in interstitial and airspace process diffusely in both lungs. Small bilateral pleural effusions. Increasing consolidation/masslike opacity in left lung apex. Urine osmolality Urine sodium Monitor BMP, mag, Phos Avoid nephrotoxic agents and medications Discussed management with cardiology. IV heparin can be discontinued from a cardiac standpoint and patient can be resumed on Eliquis. No interventions planned. #. Acute on chronic hypoxic respiratory failure, possibly immunotherapy induced pneumonitis versus community-acquired pneumonia, rule out other causes #. History of DVT of left lower extremity #. Acute DVT of right lower extremity #. History of non-small cell lung cancer #. Brain microhemorrhages seen on CT Pulmonology note reviewed, agree with broadening antibiotic coverage with IV cefepime and IV vancomycin, monitor for renal toxicity, will likely need brain MRI Per heme-onc, Solu-Medrol 60 mg IV daily for 3 days Was previously on IV Rocephin and azithromycin Blood cultures no growth to date Fungal cultures pending Fungal antigens pending Stool occult blood pending Wean off oxygen as tolerated. Goal O2 saturation 88 to 92% -Restart Eliquis 5 twice daily tonight, discontinue heparin drip at that point #. Transaminitis, stable Patient not experiencing any right upper quadrant pain Monitor CMP #. Hypokalemia #. Hypomagnesemia, resolved 40 mill equivalent oral potassium given today #. Right hip pain, stable Acetaminophen 650 mg p.o. every 6 hours as needed Gabapentin 100 mg p.o. 3 times daily #. Epistaxis, resolved #. History of small cell lung cancer diagnosed in April 2022 Heme-onc following, management as above -Status post lung and brain radiation and chemotherapy Chronic Conditions: #. Kde-[id number]-fbrzivpvv type 2 diabetes, controlled #. Hyperlipidemia #. COPD on home oxygen #. GERD #. Hypertension Insulin sliding scale low-dose less than 70 kg ACHS, monitor for hypoglycemia Accu-Cheks ACHS A1c 7.6 Continue albuterol inhaler and Trelegy inhaler Hold Eliquis 5 mg p.o. twice daily, in the setting of possible brain microhemorrhages Hold metformin, amlodipine, aspirin, baclofen, meloxicam and losartan/hydrochlorothiazide F: Oral intake E: None for now N: Renal diet A: Fall precautions needs ambulation support DVT ppx: Eliquis PO Dispo: Pending clinical course Julianne Owens MD PGY-1/A [employer] Rep Dictation was produced using [employer] dictation software. please excuse any grammatical, word or spelling errors. Patient is critically ill, needs close monitoring. I have seen and evaluated the patient today. Discussed with the resident and agree with the residents finding and plan as documented in the resident's note. Changes highlighted in blue font. Objective - Vital Signs Vital signs: Vital Signs Temp 98.7 F 01/07/24 03:41 Pulse 108 H 01/07/24 06:42 Resp 20 01/07/24 06:42 BP 100/65 01/07/24 03:41 Pulse Ox 95 01/07/24 06:42 FiO2 Intake & Output 01/06/24 01/07/24 01/07/24 18:59 06:59 18:59 Intake Total 190.179 Output Total 500 1150 Balance -309.821 -1150 Weight 85 kg 84.5 kg Intake: Intake, IV Titration 190.179 Amount Heparin Sod,Pork in 0.45% 190.179 NaCl 25,000 unit In 0.45 % NaCl 1 250ml.bag @ 12 UNITS/KG/HR 9.78 mls/hr IV .Q24H [facility] Rx#: [id number] Output: Urine 500 1150 Other: Voiding Method External Catheter External Catheter # Bowel Movements 0 - Labs CBC & Chem 7: 01/07/24 06:20 01/07/24 06:20 Labs: Abnormal Lab Results - Last 24 Hours (Table) 01/06/24 01/06/24 01/06/24 Range/Units 06:08 06:08 06:08 RBC 2.96 L (3.80-5.40) m/uL Hgb 9.4 L (11.4-16.0) gm/dL Hct 28.0 L (34.0-46.0) % RDW 18.1 H (11.5-15.5) % Neutrophils # (1.3-7.7) k/uL Lymphocytes # 0.6 L (1.0-4.8) k/uL PT 14.3 H (10.0-12.5) sec INR 1.4 H (<1.2) APTT 70.2 H (22.0-30.0) sec Sodium 133 L (137-145) mmol/L BUN 6 L (7-17) mg/dL Glucose 64 L (74-99) mg/dL POC Glucose (mg/dL) (70-110) mg/dL Magnesium 1.1 L (1.6-2.3) mg/dL AST 103 H (14-36) U/L ALT 57 H (4-34) U/L Alkaline Phosphatase 153 H (38-126) U/L Troponin I (0.000-0.034) ng/mL Total Protein 5.2 L (6.3-8.2) g/dL Albumin 2.6 L (3.5-5.0) g/dL 01/06/24 01/06/24 01/06/24 Range/Units 08:13 14:20 18:24 RBC (3.80-5.40) m/uL Hgb (11.4-16.0) gm/dL Hct (34.0-46.0) % RDW (11.5-15.5) % Neutrophils # (1.3-7.7) k/uL Lymphocytes # (1.0-4.8) k/uL PT (10.0-12.5) sec INR (<1.2) APTT 34.9 H (22.0-30.0) sec Sodium (137-145) mmol/L BUN (7-17) mg/dL Glucose (74-99) mg/dL POC Glucose (mg/dL) (70-110) mg/dL Magnesium 2.5 H (1.6-2.3) mg/dL AST (14-36) U/L ALT (4-34) U/L Alkaline Phosphatase (38-126) U/L Troponin I 10.000 H* (0.000-0.034) ng/mL Total Protein (6.3-8.2) g/dL Albumin (3.5-5.0) g/dL 01/06/24 01/06/24 01/07/24 Range/Units 20:20 22:30 06:19 RBC (3.80-5.40) m/uL Hgb (11.4-16.0) gm/dL Hct (34.0-46.0) % RDW (11.5-15.5) % Neutrophils # (1.3-7.7) k/uL Lymphocytes # (1.0-4.8) k/uL PT (10.0-12.5) sec INR (<1.2) APTT 75.1 H (22.0-30.0) sec Sodium (137-145) mmol/L BUN (7-17) mg/dL Glucose (74-99) mg/dL POC Glucose (mg/dL) 129 H 115 H (70-110) mg/dL Magnesium (1.6-2.3) mg/dL AST (14-36) U/L ALT (4-34) U/L Alkaline Phosphatase (38-126) U/L Troponin I (0.000-0.034) ng/mL Total Protein (6.3-8.2) g/dL Albumin (3.5-5.0) g/dL 01/07/24 Range/Units 06:20 RBC 2.89 L (3.80-5.40) m/uL Hgb 8.9 L (11.4-16.0) gm/dL Hct 27.3 L (34.0-46.0) % RDW 18.1 H (11.5-15.5) % Neutrophils # 8.1 H (1.3-7.7) k/uL Lymphocytes # 0.4 L (1.0-4.8) k/uL PT (10.0-12.5) sec INR (<1.2) APTT (22.0-30.0) sec Sodium (137-145) mmol/L BUN (7-17) mg/dL Glucose (74-99) mg/dL POC Glucose (mg/dL) (70-110) mg/dL Magnesium (1.6-2.3) mg/dL AST (14-36) U/L ALT (4-34) U/L Alkaline Phosphatase (38-126) U/L Troponin I (0.000-0.034) ng/mL Total Protein (6.3-8.2) g/dL Albumin (3.5-5.0) g/dL Microbiology - Last 24 Hours (Table) 01/03/24 16:34 Blood Culture - Preliminary Blood 01/05/24 08:14 Gram Stain - Preliminary Sputum Sputum Culture - Preliminary
--- NOTE | 2024-01-07 14:31 | P.PN ---
Subjective Progress Note Date: 01/07/24 Principal diagnosis: JENNIFER. Hx of NSCLC, IO held since late Sep for pneumonitis In fl/u today pt is reporting that she is tired, she arouses to voice, she does answer questions appropriately. Denies pain, no shortness of breath at rest, chest discomfort, she is not moving very much though, generalized weakness. Objective - Vital Signs Vital signs: Vital Signs Temp 98.7 F 01/07/24 03:41 Pulse 106 H 01/07/24 08:54 Resp 20 01/07/24 06:42 BP 100/65 01/07/24 03:41 Pulse Ox 100 01/07/24 08:34 FiO2 Intake & Output 01/06/24 01/07/24 01/07/24 18:59 06:59 18:59 Intake Total 190.179 225.375 Output Total 500 1150 Balance -309.821 -1150 225.375 Weight 85 kg 84.5 kg Intake: Intake, IV Titration 190.179 225.375 Amount Heparin Sod,Pork in 0.45% 190.179 225.375 NaCl 25,000 unit In 0.45 % NaCl 1 250ml.bag @ 12 UNITS/KG/HR 9.78 mls/hr IV .Q24H [facility] Rx#: [id number] Output: Urine 500 1150 Other: Voiding Method External Catheter External Catheter # Bowel Movements 0 - Constitutional General appearance: Present: cooperative, no acute distress, obese - EENT Eyes: Present: anicteric sclerae, EOMI ENT: Present: hearing grossly normal, normal oropharynx - Respiratory Respiratory: bilateral: rales, wheezing - Cardiovascular Rhythm: regular Heart sounds: normal: S1, S2 Abnormal Heart Sounds: Absent: systolic murmur, diastolic murmur, rub, S3 G allop, S4 Gallop, click, other - Peripheral edema leg Peripheral Edema: right: None, left: Trace - Gastrointestinal General gastrointestinal: Present: normal bowel sounds, soft - Integumentary Integumentary: Present: pale - Musculoskeletal Musculoskeletal: Present: generalized weakness - Psychiatric Psychiatric Comment(s): drowsy, arouses to voice, is appropriate, oriented x 3 - Labs CBC & Chem 7: 01/07/24 06:20 01/07/24 06:20 Labs: Abnormal Lab Results - Last 24 Hours (Table) 01/06/24 01/06/24 01/06/24 Range/Units 14:20 18:24 20:20 RBC (3.80-5.40) m/uL Hgb (11.4-16.0) gm/dL Hct (34.0-46.0) % RDW (11.5-15.5) % Neutrophils # (1.3-7.7) k/uL Lymphocytes # (1.0-4.8) k/uL APTT 34.9 H (22.0-30.0) sec Sodium (137-145) mmol/L Potassium (3.5-5.1) mmol/L Chloride (98-107) mmol/L BUN (7-17) mg/dL POC Glucose (mg/dL) 129 H (70-110) mg/dL Magnesium 2.5 H (1.6-2.3) mg/dL AST (14-36) U/L ALT (4-34) U/L Alkaline Phosphatase (38-126) U/L Troponin I (0.000-0.034) ng/mL Total Protein (6.3-8.2) g/dL Albumin (3.5-5.0) g/dL 01/06/24 01/07/24 01/07/24 Range/Units 22:30 06:19 06:20 RBC 2.89 L (3.80-5.40) m/uL Hgb 8.9 L (11.4-16.0) gm/dL Hct 27.3 L (34.0-46.0) % RDW 18.1 H (11.5-15.5) % Neutrophils # 8.1 H (1.3-7.7) k/uL Lymphocytes # 0.4 L (1.0-4.8) k/uL APTT 75.1 H (22.0-30.0) sec Sodium (137-145) mmol/L Potassium (3.5-5.1) mmol/L Chloride (98-107) mmol/L BUN (7-17) mg/dL POC Glucose (mg/dL) 115 H (70-110) mg/dL Magnesium (1.6-2.3) mg/dL AST (14-36) U/L ALT (4-34) U/L Alkaline Phosphatase (38-126) U/L Troponin I (0.000-0.034) ng/mL Total Protein (6.3-8.2) g/dL Albumin (3.5-5.0) g/dL 01/07/24 01/07/24 01/07/24 Range/Units 06:20 06:20 07:52 RBC (3.80-5.40) m/uL Hgb (11.4-16.0) gm/dL Hct (34.0-46.0) % RDW (11.5-15.5) % Neutrophils # (1.3-7.7) k/uL Lymphocytes # (1.0-4.8) k/uL APTT 103.3 H* (22.0-30.0) sec Sodium 130 L (137-145) mmol/L Potassium 3.3 L (3.5-5.1) mmol/L Chloride 96 L (98-107) mmol/L BUN 6 L (7-17) mg/dL POC Glucose (mg/dL) (70-110) mg/dL Magnesium (1.6-2.3) mg/dL AST 85 H (14-36) U/L ALT 50 H (4-34) U/L Alkaline Phosphatase 166 H (38-126) U/L Troponin I 3.840 H* (0.000-0.034) ng/mL Total Protein 5.2 L (6.3-8.2) g/dL Albumin 2.6 L (3.5-5.0) g/dL Microbiology - Last 24 Hours (Table) 01/05/24 08:14 Gram Stain - Final Sputum Sputum Culture - Final 01/03/24 16:34 Blood Culture - Preliminary Blood Assessment and Plan (1) Acute kidney injury Current Visit: Yes Status: Acute Priority: High Code(s): N17.9 - ACUTE KIDNEY FAILURE, UNSPECIFIED SNOMED Code(s): 79938522 (2) DVT (deep venous thrombosis) Current Visit: Yes Status: Acute Priority: Medium Code(s): I82.409 - ACUTE EMBOLISM AND THOMBOS UNSP DEEP VN UNSP LOWER EXTREMITY SNOMED Code(s): 954286194 (3) Adenocarcinoma, lung Current Visit: No Status: Acute Priority: High Code(s): C34.90 - MALIGNANT NEOPLASM OF UNSP PART OF UNSP BRONCHUS OR LUNG SNOMED Code(s): 223734660 Plan: JENNIFER -Likely 2/2 dehydration from poor oral intake and URI. Resolved with hydration -UA negative for UTI, US was neg for hydronephrosis DVT -Diagnosed November/2023, cont on eliquis. Bilateral lower extremity Doppler reports right leg is positive for DVT, left leg is neg. -Initial brain CT noted single hyperdense focus within the posterior right frontal lobe. Suspicious for acute microhemorrhage. Dr. Lilo Bedolla reviewed risk benefit of anticoagulation in the setting of acute DVT. Eliquis has been restarted. Pt cont to Not exhibit any focal neuro deficits. Repeat CT of the brain today reports an impression of no change in the small focus of increased density within the posterior right frontal lobe, no mass effect or midline shift. Suspect the area is a lesion that received SBRT treatment previously. MRI brain ordered for evaluation as renal function is improved -Continue therapeutic dose Eliquis at this time Metastatic lung adenocarcinoma: -History as dictated in consult -Imfinzi last given on 09/23, tx held due to hospital admissions and suspected IO r/t pneumonitis. -S/P SBRT to solitary brain lesion 10/2023. -Plan was to have repeat CT chest on 01/05 and clinic f/u to further discuss treatment options and goals of care. CTA done yesterday, it was compared to CT chest 10/08/2023. Marked interval increase in the interstitial and airspace process diffusely involving both lungs. Findings consistent with infectious or edematous process, neoplasm not excluded. Increase in opacity in the left lung apex. Small bilateral pleural effusions left greater than right. Interval development of right lung pulmonary nodules ? . Started high dose steroids, 2mg/kg x 3 doses-ins/exp wheezing, possible pneumonitis. Will see how pt does on the same. Will repeat imaging short-term. -Brain MRI for comparison s/p SBRT Doctor attests: I performed a history and physical examination of this patient, developed impression and plan of care. Discussed with dictator. I agree with dictators note, documented as a scribe.
[2024-01-07 16:37] LABS: Glucose,Whole Blood 164 mg/dL (70-110)
[2024-01-07 20:02] LABS: Glucose,Whole Blood 192 mg/dL (70-110)
[2024-01-07] MEDS: APIXABAN 5 MG TAB PO SCH (21:29)
[2024-01-08 05:54] LABS: Glucose,Whole Blood 136 mg/dL (70-110)
[2024-01-08 07:43] LABS: Anisocytosis Slight; Basophils % (A) 0 %; Eosinophils # (A) 0.1 k/uL (0-0.7); Eosinophils % (A) 1 %; HCT 27.1 % (34.0-46.0); HGB 8.8 gm/dL (11.4-16.0); Hypochromasia Slight; Lymphocytes # (A) 0.3 k/uL (1.0-4.8); Lymphocytes % (A) 3 %; MCH 31.2 pg (25.0-35.0); MCHC 32.6 g/dL (31.0-37.0); MCV 95.7 fL (80.0-100.0); Macrocytosis Slight; Mean Platelet Volume 7.5; Monocytes # (A) 0.5 k/uL (0-1.0); Monocytes % (A) 5 %; Neutrophils # (A) 10.3 k/uL (1.3-7.7); Neutrophils % (A) 90 %; Platelet Count 239 k/uL (150-450); Poikilocytosis Slight; RBC 2.83 m/uL (3.80-5.40); RDW 18.1 % (11.5-15.5); WBC 11.3 k/uL (3.8-10.6)
[2024-01-08 07:55] LABS: ALT 50 U/L (4-34); AST 70 U/L (14-36); African American GFR (CKD) >90 (>60 ml/min/1.73 sqM); Albumin 2.6 g/dL (3.5-5.0); Alkaline Phosphatase 162 U/L (38-126); Anion Gap 0 mmol/L; Blood Urea Nitrogen 8 mg/dL (7-17); Carbon Dioxide 29 mmol/L (22-30); Chloride 107 mmol/L (98-107); Glucose 137 mg/dL (74-99); Non-African American GFR(CKD) >90 (>60 ml/min/1.73 sqM); Potassium 3.7 mmol/L (3.5-5.1); Sodium 136 mmol/L (137-145); Total Bilirubin 0.8 mg/dL (0.2-1.3); Total Protein 5.3 g/dL (6.3-8.2)
[2024-01-08 11:35] LABS: Glucose,Whole Blood 130 mg/dL (70-110)
--- NOTE | 2024-01-08 11:56 | P.PN ---
Subjective Progress Note Date: 01/08/24 Patient is a 63-year-old female with hypertension, hyperlipidemia, diabetes (controlled with diet), COPD (on home oxygen for 2 L GERD, history of lung CA diagnosed in April 2022 (with history of immunotherapy and radiation being seen by Dr. Manley) and DVT (on Eliquis) who came in for generalized weakness. Patient reported 3 to 4 weeks ago, she began to experience left hip pain that was intermittent dull nonradiating to an intensity of 8 to 7 out of 10 after being admitted for DVT of the left lower extremity. She went to the ER during that time in another facility and was told that it was a muscle sprain that only required bedrest. However, on 12/27 hip pain increased severity of 10 out of 10 and was intolerable which led the patient to seek care in another ED. She was prescribed morphine IM, a muscle relaxer and advised to continue her home tramadol. Her pain was controlled throughout the week but she noticed that she became generally weak with associated lethargy which led her to be wheelchair- bound and could not perform her usual ADLs including eating or drinking. On Sunday 12/31 she also experienced a fall but she was able to catch herself and did not lose consciousness and sat down on the bathroom floor for about an hour. Patient and patient's family decided not to seek care at the time. However, because the weakness was persistent and did not go away, family and patient decided to seek care today. She denied changes in vision, tremors, facial asymmetry, chest pain, shortness of breath, calf tenderness, fever, chills, sweats, dysuria, hematuria, nausea, vomiting, diarrhea, recent travel or recent sick contacts. In the ER, chest x-ray shows left midlung airspace opacities. CT brain shows hyperdense focus on posterior right frontal lobe with suspicion for acute microhemorrhage, no evidence of midline shift or edema. EKG shows sinus rhythm with a rate of [address]-T changes low voltage good R wave progression QTc 422 WBC 9.6 hemoglobin 10.4 MCV 95 platelet count 196 sodium 131 potassium 3.9 chloride 96 bicarb 22 BUN 33 creatinine 2.33 glucose 143 plasma lactic acid 3.7 phosphorus 4.9 AST 56 ALT 54 ALP 137 troponin 0.073 albumin 3.5. On admission, patient was afebrile at 97.5 pulse rate 100 respiratory 20 blood pressure 98/54 O2 saturation 97% 01/04/2024 patient seen and examined at bedside. Patient reported that she has a cough that is productive with a sore throat. Overnight her troponin increased from 0.07-0.09 with no chest pain but noted increased oxygen demand and tachycardia. Repeat CT of the brain shows no change. V/q. perfusion scan done shows indeterminate for pulmonary embolism and findings are more likely related to chronic lung disease. Chest x-ray shows lungs with mild interval worsening of the focal opacities. WBC 7 hemoglobin 9.2 MCV 96 platelet count 166,000 sodium 136 potassium 3.3 BUN 18 creatinine 1.07 glucose 105 A1c 7.6 calcium 8.9 phosphorus 3.5 magnesium 1.3 AST 51 ALT 51 alk phos 130 albumin 2.7 01/05/2024 Patient seen and examined at bedside. No acute events overnight. Still having worsening respiratory distress. Also complaining of chest pain which quickly resolved and now having mostly back pain. EKG independently interpreted showed only shows sinus rhythm. No significant ST-T wave changes. Troponin elevated up to 4, repeat pending. Given aspirin 325. Started on low intensity heparin drip. Repeat CT head tomorrow. Cardiology also consulted. On telemetry monitoring. 01/06/2024 patient seen and examined at bedside. Patient reported to be anxious and uncomfortable due to back pain. Patient oxygenation requirement increased to 6 L and now on rebreather. WBC 9.5 hemoglobin 9.4 PT 14.3 INR 1.4 PTT 70.2 sodium 133 AST 103 ALT 57 alk phos 153 troponin 10 albumin 2.6. Chest x-ray sh ows ongoing bilateral patchy and interstitial infiltrates with minimal change from yesterday. Repeat brain CT show small microhemorrhages and small focus of increased density within the posterior right frontal lobe with no change. Echocardiogram shows left ventricular ejection fraction of 55 to 60% with no wall thickness and normal wall motion. 01/07/2024 patient seen and examined at bedside. Patient noted to have discomfort due to back pain. Currently not having any chest pain, leg tendern ess or shortness of breath at this time. She is currently on nasal cannula 12 L. Overnight, patient noted to have increased O2 demand and was placed on nonrebreather once again after being on nasal cannula for a few hours. WBC 9.7 hemoglobin 8.9 platelet count 214,000 PTT 103.3 sodium 130 potassium 3.3 chloride 96 BUN 6 creatinine 0.67 glucose 115 magnesium 1.8 calcium 8.9 AST 85 ALT 50 alk phos 166 BNP 1940 albumin 2.6 TSH 0.654 01/08/2024 patient seen and examined at bedside. Patient noted that she is uncomfortable with her back pain but otherwise had no new or worsening symptoms. She still has a productive cough. Patient still requires high flow nasal cannula now at 7 L. She denies chest pain, shortness of breath, or leg tenderness. No acute events overnight. WBC 11.3 hemoglobin 8.8 platelet count 239,000 sodium 136 potassium 3.7 chloride 107 BUN 8 creatinine 0.55 glucose 137 AST 70 ALT 15 alk phos 162 albumin 2.6 urine osmolarity 127 urine sodium less than 20 Review of systems: Pertinent positives and negatives as discussed in HPI, a complete review of systems was performed and all other systems are negative. Pertinent imaging and labs reviewed. Physical examination: Vital signs reviewed General: non toxic, no distress, on nasal cannula 7 L Derm: no unusual rashes/lesions, warm Head: atraumatic, normocephalic, symmetric Eyes: EOMI, anicteric sclera, pupils equal round reactive to light ENT: Nose and ears atraumatic Neck: No cervical lymphadenopathy, trachea midline, supple Mouth: no lip lesion, mucus membranes moist, some mild erythema of the throat Cardiovascular: S1S2 tachycardic, no murmur Lungs: CTA bilateral, no rhonchi, no rales, no accessory muscle use Abdominal: soft, nontender to palpation, no guarding Ext: muscle strength 5 out of 5 in all 4 extremities grossly, no gross muscle atrophy, no contractures, positive dorsalis pedis pulse bilateral, no extremity edema Neuro: CN II-XI grossly intact, no gross focal neuro deficits Psych: Alert and oriented x3, appropriate affect and mood Assessment/Plan: 63-year-old woman who came in for generalized weakness with recent new medications for left hip pain. Was found to have JENNIFER #. Debility #. JENNIFER prenal vs renal vs postrenal, resolved #. Euvolemic hyponatremia, improving #. Acute normocytic anemia, stable #. Acute NSTEMI #. History of DVT of left lower extremity #. DVT of right lower extremity IV normal saline boluses initiated in the ED IV fluids discontinued. Oral intake encouraged Aspirin 81 mg p.o. daily and Lipitor 40 mg p.o. daily urinalysis shows only trace potassium Troponin 10. Repeat tropoinin Creatinine kinase 226 Echocardiogram shows left ventricular ejection fraction of 55 to 60% with no wall thickness and normal wall motion. Chest x-ray showed ongoing bilateral patchy and interstitial infiltrates with minimal improvement Venous Doppler positive for DVT of right lower extremity Chest CTA showed no evidence of pulmonary embolus. Has marked interval increase in interstitial and airspace process diffusely in both lungs. Small bilateral pleural effusions. Increasing consolidation/masslike opacity in left lung apex. Urine osmolality 127 Urine sodium less than 20 BNP 1940 TSH 0.654 Monitor BMP, mag Avoid nephrotoxic agents and medications Consult PT OT Discussed management with cardiology. IV heparin can be discontinued from a cardiac standpoint and patient can be resumed on Eliquis. #. Community-acquired pneumonia #. Acute on chronic hypoxic respiratory failure, likely pneumonitis, rule out other causes #. History of non-small cell lung cancer #. Brain microhemorrhages Patient developed a productive cough cough and sore throat. Repeated chest x- ray left midlung airspace opacities Pulmonology also consulted, note reviewed, increased dose of Symbicort, continue ipratropium 4 times daily Per heme-onc, Solu-Medrol 60 mg IV daily for 3 days Initiated Rocephin IVPB daily for 4 days Status post azithromycin 500 mg IVP daily Continue IV vancomycin dosed per pharmacy and cefepime 2 g IVPB every 8 hours BNP [address] head shows stable microhemorrhages Blood cultures pending Fungal cultures pending Fungal antigens pending Stool occult blood pending Wean off oxygen as tolerated. Goal O2 saturation 88 to 92% #. Transaminitis, stable Patient not experiencing any right upper quadrant pain Monitor CMP #. Hypokalemia, resolved #. Hypomagnesemia, resolved #. Right hip pain, stable Acetaminophen 650 mg p.o. every 6 hours as needed Gabapentin 100 mg p.o. 3 times daily #. Epistaxis INR elevated 1.4 PTT elevated at 14.3 Monitor for now Likely from nasal cannula #. History of small cell lung cancer diagnosed in April 2022 Heme-onc consulted -Status post lung and brain radiation and chemotherapy Chronic Conditions: #. Yck-gbddkuw-cxpeqifkh type 2 diabetes, controlled #. Hyperlipidemia #. COPD on home oxygen #. GERD #. Hypertension #. History of DVT of left lower extremity Insulin sliding scale low-dose less than 70 kg ACHS, monitor for hypoglycemia Accu-Cheks ACHS A1c 7.6 Continue albuterol inhaler and Trelegy inhaler Hold Eliquis 5 mg p.o. twice daily, in the setting of possible brain microhemorrhages Hold metformin, amlodipine, aspirin, baclofen, meloxicam and los silvia/hydrochlorothiazide F: Oral intake E: None for now N: Renal diet A: Fall precautions needs ambulation support DVT ppx: Eliquis PO Dispo: Pending clinical course Julianne Owens MD PGY-1/Import Manager Dictation was produced using [employer] dictation software. please excuse any grammatical, word or spelling errors. I have seen and evaluated the patient today. Discussed with the resident and agree with the residents finding and plan as documented in the resident's note. Changes highlighted in blue font. Objective - Vital Signs Vital signs: Vital Signs Temp 97.5 F L 01/08/24 04:00 Pulse 108 H 01/08/24 04:00 Resp 22 01/08/24 04:00 BP 125/79 01/08/24 04:00 Pulse Ox 94 L 01/08/24 04:00 FiO2 Intake & Output 01/07/24 01/08/24 01/08/24 18:59 06:59 18:59 Intake Total 250.000 Output Total 900 200 Balance -650.000 -200 Weight 95.5 kg Intake: Intake, IV Titration 250.000 Amount Heparin Sod,Pork in 0.45% 250.000 NaCl 25,000 unit In 0.45 % NaCl 1 250ml.bag @ 12 UNITS/KG/HR 9.78 mls/hr IV .Q24H [facility] Rx#: [id number] Output: Urine 900 200 Other: Voiding Method External Catheter External Catheter - Labs CBC & Chem 7: 01/08/24 07:25 01/08/24 07:25 Labs: Abnormal Lab Results - Last 24 Hours (Table) 01/07/24 01/07/24 01/07/24 Range/Units 06:20 06:20 07:52 APTT 103.3 H* (22.0-30.0) sec Sodium 130 L (137-145) mmol/L Potassium 3.3 L (3.5-5.1) mmol/L Chloride 96 L (98-107) mmol/L BUN 6 L (7-17) mg/dL POC Glucose (mg/dL) (70-110) mg/dL AST 85 H (14-36) U/L ALT 50 H (4-34) U/L Alkaline Phosphatase 166 H (38-126) U/L Troponin I 3.840 H* (0.000-0.034) ng/mL Total Protein 5.2 L (6.3-8.2) g/dL Albumin 2.6 L (3.5-5.0) g/dL Urine Osmolality (400-1100) mOsm/kg Ur Random Sodium (40-220) mmol/L 01/07/24 01/07/24 01/07/24 Range/Units 16:28 16:28 16:36 APTT (22.0-30.0) sec Sodium (137-145) mmol/L Potassium (3.5-5.1) mmol/L Chloride (98-107) mmol/L BUN (7-17) mg/dL POC Glucose (mg/dL) 164 H (70-110) mg/dL AST (14-36) U/L ALT (4-34) U/L Alkaline Phosphatase (38-126) U/L Troponin I (0.000-0.034) ng/mL Total Protein (6.3-8.2) g/dL Albumin (3.5-5.0) g/dL Urine Osmolality 127 L (400-1100) mOsm/kg Ur Random Sodium <20 L (40-220) mmol/L 01/07/24 01/08/24 Range/Units 20:01 05:53 APTT (22.0-30.0) sec Sodium (137-145) mmol/L Potassium (3.5-5.1) mmol/L Chloride (98-107) mmol/L BUN (7-17) mg/dL POC Glucose (mg/dL) 192 H 136 H (70-110) mg/dL AST (14-36) U/L ALT (4-34) U/L Alkaline Phosphatase (38-126) U/L Troponin I (0.000-0.034) ng/mL Total Protein (6.3-8.2) g/dL Albumin (3.5-5.0) g/dL Urine Osmolality (400-1100) mOsm/kg Ur Random Sodium (40-220) mmol/L Microbiology - Last 24 Hours (Table) 01/05/24 08:14 Gram Stain - Final Sputum Sputum Culture - Final 01/03/24 16:34 Blood Culture - Preliminary Blood
[2024-01-08 12:28] LABS: Candida albicans IgE Class CLASS 0
[2024-01-08] MEDS ORDERED: MAGNESIUM HYDROXIDE 2,400 MG/30 ML CUP PO PRN (12:45)
--- NOTE | 2024-01-08 14:51 | P.PN ---
Subjective Progress Note Date: 01/08/24 Principal diagnosis: JENNIFER. Hx of NSCLC, IO held since late Sep for pneumonitis In fl/u today pt cont to be tired, every day she has been seen she is sleeping. Pt is getting confused when she arouses and pulls her O2 off, sats drop into the 60's/70's so a sitter is in the room. She cont to arouse to voice and does answer questions appropriately. Denies pain at this time, no shortness of breath at rest, she is not moving much on her own. Objective - Vital Signs Vital signs: Vital Signs Temp 97.3 F L 01/08/24 08:00 Pulse 113 H 01/08/24 12:27 Resp 20 01/08/24 08:00 BP 114/73 01/08/24 08:00 Pulse Ox 100 01/08/24 09:28 FiO2 Intake & Output 01/07/24 01/08/24 01/08/24 18:59 06:59 18:59 Intake Total 250.000 120 Output Total 900 200 Balance -650.000 -200 120 Weight 95.5 kg Intake: Intake, IV Titration 250.000 Amount Heparin Sod,Pork in 0.45% 250.000 NaCl 25,000 unit In 0.45 % NaCl 1 250ml.bag @ 12 UNITS/KG/HR 9.78 mls/hr IV .Q24H [facility] Rx#: [id number] Oral 120 Output: Urine 900 200 Other: Voiding Method External Catheter External Catheter External Catheter - Constitutional General appearance: Present: cooperative, no acute distress, obese - EENT Eyes: Present: anicteric sclerae, EOMI ENT: Present: hearing grossly normal - Respiratory Respiratory: bilateral: wheezing (improved from yesterday) - Cardiovascular Rhythm: regular - Peripheral edema leg Peripheral Edema: bilateral: None - Gastrointestinal General gastrointestinal: Present: soft - Integumentary Integumentary: Present: pale - Neurologic Neurologic: Present: CNII-XII intact - Musculoskeletal Musculoskeletal: Present: generalized weakness - Psychiatric Psychiatric Comment(s): Arousable to voice and oriented duering discussion, answers questions appropriately Psychiatric: Present: appropriate affect, intact judgment & insight - Labs CBC & Chem 7: 01/08/24 07:25 01/08/24 07:25 Labs: Abnormal Lab Results - Last 24 Hours (Table) 01/07/24 01/07/24 01/07/24 Range/Units 16:28 16:28 16:36 WBC (3.8-10.6) k/uL RBC (3.80-5.40) m/uL Hgb (11.4-16.0) gm/dL Hct (34.0-46.0) % RDW (11.5-15.5) % Neutrophils # (1.3-7.7) k/uL Lymphocytes # (1.0-4.8) k/uL Sodium (137-145) mmol/L Glucose (74-99) mg/dL POC Glucose (mg/dL) 164 H (70-110) mg/dL AST (14-36) U/L ALT (4-34) U/L Alkaline Phosphatase (38-126) U/L Total Protein (6.3-8.2) g/dL Albumin (3.5-5.0) g/dL Urine Osmolality 127 L (400-1100) mOsm/kg Ur Random Sodium <20 L (40-220) mmol/L 01/07/24 01/08/24 01/08/24 Range/Units 20:01 05:53 07:25 WBC 11.3 H (3.8-10.6) k/uL RBC 2.83 L (3.80-5.40) m/uL Hgb 8.8 L (11.4-16.0) gm/dL Hct 27.1 L (34.0-46.0) % RDW 18.1 H (11.5-15.5) % Neutrophils # 10.3 H (1.3-7.7) k/uL Lymphocytes # 0.3 L (1.0-4.8) k/uL Sodium (137-145) mmol/L Glucose (74-99) mg/dL POC Glucose (mg/dL) 192 H 136 H (70-110) mg/dL AST (14-36) U/L ALT (4-34) U/L Alkaline Phosphatase (38-126) U/L Total Protein (6.3-8.2) g/dL Albumin (3.5-5.0) g/dL Urine Osmolality (400-1100) mOsm/kg Ur Random Sodium (40-220) mmol/L 01/08/24 01/08/24 Range/Units 07:25 11:33 WBC (3.8-10.6) k/uL RBC (3.80-5.40) m/uL Hgb (11.4-16.0) gm/dL Hct (34.0-46.0) % RDW (11.5-15.5) % Neutrophils # (1.3-7.7) k/uL Lymphocytes # (1.0-4.8) k/uL Sodium 136 L (137-145) mmol/L Glucose 137 H (74-99) mg/dL POC Glucose (mg/dL) 130 H (70-110) mg/dL AST 70 H (14-36) U/L ALT 50 H (4-34) U/L Alkaline Phosphatase 162 H (38-126) U/L Total Protein 5.3 L (6.3-8.2) g/dL Albumin 2.6 L (3.5-5.0) g/dL Urine Osmolality (400-1100) mOsm/kg Ur Random Sodium (40-220) mmol/L Microbiology - Last 24 Hours (Table) 01/05/24 08:14 Gram Stain - Final Sputum Sputum Culture - Final Assessment and Plan (1) Acute kidney injury Current Visit: Yes Status: Acute Priority: High Code(s): N17.9 - ACUTE KIDNEY FAILURE, UNSPECIFIED SNOMED Code(s): 13392276 (2) DVT (deep venous thrombosis) Current Visit: Yes Status: Acute Priority: Medium Code(s): I82.409 - ACUTE EMBOLISM AND THOMBOS UNSP DEEP VN UNSP LOWER EXTREMITY SNOMED Code(s): 408289355 (3) Adenocarcinoma, lung Current Visit: No Status: Acute Priority: High Code(s): C34.90 - MALIGNANT NEOPLASM OF UNSP PART OF UNSP BRONCHUS OR LUNG SNOMED Code(s): 045415965 Plan: JENNIFER -Likely 2/2 dehydration from poor oral intake and URI. Resolved with hydration. Kidney numbers cont to look good today -UA negative for UTI, US was neg for hydronephrosis DVT -Diagnosed November/2023, cont on eliquis. Bilateral lower extremity Doppler reports right leg is positive for DVT, left leg is neg. -Initial brain CT noted single hyperdense focus within the posterior right frontal lobe. Suspicious for acute microhemorrhage. Dr. Lilo Bedolla reviewed risk benefit of anticoagulation in the setting of acute DVT. Eliquis has been restarted, no focal neuro deficits or new neuro findings reported. Suspect the a anabell seen on CT brain is a lesion that received SBRT treatment previously. MRI brain ordered for evaluation as renal function is improved, pending that scan to be done -Continue therapeutic dose Eliquis at this time Metastatic lung adenocarcinoma -History as dictated in consult -Imfinzi last given on 09/23, tx held due to hospital admissions and suspected IO r/t pneumonitis. -S/P SBRT to solitary brain lesion 10/2023. Brain MRI for comparison s/p SBRT pending -Plan was to have repeat CT chest on 01/05 and clinic f/u to further discuss treatment options and goals of care. CTA done yesterday, it was compared to CT chest 10/08/2023. Marked interval increase in the interstitial and airspace process diffusely involving both lungs. Findings consistent with infectious or edematous process, neoplasm not excluded. Increase in opacity in the left lung apex. Small bilateral pleural effusions left greater than right. Interval development of right lung pulmonary nodules ? . Not certain if actual disease progression vs pneumonitis/infection. Started high dose steroids yesterday, 2mg/kg x 3 doses ordered. Wheezing was less today on exam. Will see how pt does over the next few days. IV steroid taper entered for the next 4 days. Will repeat imaging short-term. Doctor attests: I performed a history and physical examination of this patient, developed impression and plan of care. Discussed with dictator. I agree with dictators note, documented as a scribe.
[2024-01-08] MEDS: SENNOSIDES-DOCUSATE SODIUM 1 EACH TAB PO SCH (15:55)
[2024-01-08] MEDS: HYDROcodone/APAP 7.5-325MG 1 EACH TAB PO PRN (15:55)
[2024-01-08 16:34] LABS: Glucose,Whole Blood 157 mg/dL (70-110)
--- NOTE | 2024-01-08 18:48 | MR ---
EXAMINATION TYPE: MR brain wo/w con DATE OF EXAM: 01/08/2024 6:14 PM COMPARISON: CT most recent 01/06/2024. CLINICAL INDICATION: Female, 63 years old with history of NSCLC, new resp symptoms; PHH, NSCLC, new r marianne symptoms, prev SBRT, concern hemorrhage, dz prog TECHNIQUE: Multi planar, multi sequence imaging was performed through the brain including: T1, T2, In version recovery, susceptibility weighted imaging and gradient echo imaging and Diffusion weighted im aging. The patient was then given intravenous contrast and multi planar, T1 fat-saturation images wer e obtained. IV Contrast: 9.5 mL Gadavist FINDINGS: Scattered foci of high DWI and low ADC signal within the bilateral cerebellar hemispheres, left temporal/parietal region and bilateral frontal lobes. An enhancing focus in the posterior right frontal lobe measuring 7 mm which correlates with hypodense focus on CT imaging ascending vasogenic e jessica.. The bartholomew-white junctions, ventricular system, basal cisterns appear unremarkable. Diffusion-weighted imaging shows no evidence of restricted diffusion to suggest acute/subacute infarct. Intracranial ar terial flow voids are maintained. Midline structures show no abnormality. Scattered foci of high T2 s ignal intensity are seen within the periventricular white matter. The susceptibility weighted images reveal hemorrhage in the area of hypodense focus predominate peripherally. The bone marrow signal is within normal limits. Paranasal sinuses and mastoid air cells: No significant paranasal sinus disease. Visualized orbits: Orbital contents are intact. IMPRESSION: 1. Scattered bilateral microinfarcts correlate for embolic phenomenon. 2. Posterior right frontal lobe small area of enhancement compatible with metastatic disease in the s etting of history of malignancy . Finding is felt to correlate with finding on CT. 3. Nonspecific white matter changes, likely related to small vessel ischemic disease. [facility], , 01/08/2024 6:46 PM
[2024-01-08 19:52] LABS: Glucose,Whole Blood 217 mg/dL (70-110)
--- NOTE | 2024-01-08 20:04 | P.PN ---
Subjective Progress Note Date: 01/08/24 63-year-old female who was seen in the emergency department, January 02. The patient apparently came in with left-sided weakness, for 3 days. She apparently was having a poor balance, difficulty concentrating, and dizziness, which is why she came into the emergency room. The patient also apparently recently sustained a fall. The patient is on Eliquis. The patient has a history of lung cancer, and sees Dr. Manley for this. Other medical history includes COPD, diabetes, acid reflux disease, hyperlipidemia, hypertension, hypothyroidism, hepatitis C, and lung cancer. Chest x-ray shows some patchy left midlung airspace disease, potentially consistent with pneumonia. CT scan of the brain showed a single hyperdense focus within the posterior right frontal lobe, potentially concerning for microhemorrhage. A pulmonary ventilation/perfusion lung scan, was indeterminate for pulmonary embolism, and likely related to chronic lung disease. Current labs include a white count 6.7, hemoglobin 9.3, hematocrit 27.8, and platelet count of 152,000. Sodium 136, potassium 3.8, chlorides 107, CO2 26, BUN 18, creatinine 1.07. The patient's procalcitonin level was normal at 0.37. Glucose is 106. Urinary Legionella antigen, was negative. UA was negative. On 01/06/2024, the patient is being seen for a follow-up. The patient remains on oxygen at 60 Dyspamet 6 L nasal cannula with a pulse ox of 94%. The patient has history of non small cell lung cancer under the care of medical oncology. The patient has undergone a previous left lower lobe wedge resection and the pathology was consistent with adenocarcinoma and the patient had no regional lymph node and the patient was given a T1 c N0 M0 disease. Upon subsequent surveillance, the patient had a new right midlung pulmonary nodule and also suspicious uptake in the left infrahilar and mediastinal lymph nodes and subsequent PET/CT was also positive for mediastinal and left cervical and left infrahilar lymphadenopathy and an ultrasound-guided of the left labs lymph node neck biopsy was positive for metastatic adenocarcinoma, PD-L1 expression was 90%, NGS and liquid biopsy was negative for any targeted mutation and the patient was given a combination of cisplatin, Alimta and concurrent radiation therapy. Subsequently, the patient was started on Imfinzi and subsequent follow-up showed that the patient had a 8 mm right frontal lobe lesion in the brain and most recent CAT scan of the chest from 09/24/2023 showed evidence of pneumonitis and based on that Imfinzi was held. She was given systemic steroids. SBRT to the solitary brain lesion was done on October 2023. The patient also was in [place] where she was diagnosed having left lower extremity DVT and for that reason she was started on anticoagulation with Eliq uis. Nevertheless, during this current admission, she presented to us with 3- day history of left-sided weakness and the patient had an abnormal CAT scan of the brain and review of the CAT scans showed a small focus of increased density in the posterior right frontal lobe which could represent a small area of microhemorrhage. MRI of the brain was recommended. During this current admission, the patient also had a VQ scan that showed intermediate probability for pulmonary embolism. Echocardiogram done today showed a preserved LV function with an EF of around 55 to 60%. RV size and function was within normal and there was only a mild degree of pulmonary hypertension. The patient has COPD, diabetes mellitus, hyperlipidemia and hypertension. The EKG showed a normal sinus rhythm. On 01/07/2024, the patient is being seen for a follow-up. The patient is still hypoxic. Overnight, the patient was brought down to 12 L nasal cannula and currently she is down to 9 L. Based on history, I did some further investigation. I ordered a Doppler of lower extremity and the patient was found to have a positive DVT in the right lower extremity involving the right popliteal and the posterior tibial veins. I also obtain a CT of the chest that showed no evidence of any pulm embolism. There was evidence of interstitial and airspace process diffuse in both lungs which had markedly increased and this is probably a reflection of pneumonitis probably due to immunotherapy as the patient was taking Imfinzi on outpatient basis. Possibility of infection versus neoplasm cannot be completely excluded and the patient is currently on IV Solu- Medrol. There is also interval increase in the consolidation/masslike opacity in the left lung apex and interval development of small bilateral pleural e ffusion left more than right and there is also interval development of a right lung pulmonary nodule suspicious for recurrent/progressive lung cancer. The gallbladder was also distended without gallstones. Noted the patient has metastatic pulmonary adenocarcinoma and the patient was taken off Imfinzi due to concerns of pneumonitis. She also has an acute CVA. The patient remains on IV heparin. There was a concern of a [employer] bleed and the patient has not been committed to oral anticoagulants yet and the patient remains on IV heparin. There is a small focus of increased density within the posterior right frontal lobe which could represent small microhemorrhage versus mass to the brain. Not ed the patient had previous history of [employer] metastases and the patient has received SBRT to the brain lesion back in October 2023. Oncology is on the case. The patient was a count of 9.7, he was 8.9 and a platelet count of 214. BUN 6 with a creatinine of 0.67 and sodium levels at 130. Troponins have been downtrending is currently down to 3.8. The viral screen was done yesterday and essentially negative. On 01/08/2024, the patient remains clinically stable. Anticoagulation was started and the patient is currently on Eliquis 5 mg p.o. twice a day. Oxygenation is also stable and the patient is currently on 80s of oxygen by nasal cannula which is essentially the same as yesterday. Afebrile. Denies having any significant shortness of breath at rest. MRI of the brain was also completed today and the patient was found to have evidence of scattered bilateral microinfarcts could be potentially embolic in nature. At the same time, there was a posterior right frontal small area of enhancement compatible with metastatic disease and nonspecific chronic white matter changes. The jacque ent remains on IV Solu-Medrol regarding immunotherapy induced pneumonitis. The patient remains on IV cefepime and vancomycin. Labs from today shows a white cell count of 11.3 with a hemoglobin 8.8 and a platelet count of 239. BUN is 8 with a creatinine of 0.55 and a sodium levels at 136. She does have some mild transaminitis and the LFTs are normal. Troponins have been downtrending down to 3.8. No chest pain for now. The viral screen from yesterday was negative. Objective - Vital Signs Vital signs: Vital Signs Temp 97.3 F L 01/08/24 12:00 Pulse 95 01/08/24 16:28 Resp 18 01/08/24 14:00 BP 131/84 01/08/24 12:00 Pulse Ox 98 01/08/24 16:22 FiO2 Intake & Output 01/07/24 01/08/24 01/08/24 18:59 06:59 18:59 Intake Total 250.000 120 Output Total 900 200 600 Balance -650.000 -200 -480 Weight 95.5 kg Intake: Intake, IV Titration 250.000 Amount Heparin Sod,Pork in 0.45% 250.000 NaCl 25,000 unit In 0.45 % NaCl 1 250ml.bag @ 12 UNITS/KG/HR 9.78 mls/hr IV .Q24H [facility] Rx#: [id number] Oral 120 Output: Urine 900 200 600 Other: Voiding Method External Catheter External Catheter External Catheter - Exam No acute distress, oriented 3. Patient is currently on 7 L nasal cannula. HEENT examination is grossly unremarkable. Neck supple. Full range of motion. No adenopathy thyromegaly or neck vein distention. Cardiovascular examination reveals regular rhythm rate. S1-S2 normal. No S3 or S4. No discernible murmur noted. Lungs reveal scattered bilateral mild/moderate expiratory wheezes and rhonchi. No crackles. Breath sounds equal bilaterally. Abdomen soft bowel sounds are heard. No masses or tenderness. Extremities are intact. No cyanosis clubbing or edema. Skin is without rash or lesion. Neurologic examination reveals mild left-sided weakness. - Labs CBC & Chem 7: 01/08/24 07:25 01/08/24 07:25 Labs: Abnormal Lab Results - Last 24 Hours (Table) 01/07/24 01/07/24 01/07/24 Range/Units 16:28 16:28 20:01 WBC (3.8-10.6) k/uL RBC (3.80-5.40) m/uL Hgb (11.4-16.0) gm/dL Hct (34.0-46.0) % RDW (11.5-15.5) % Neutrophils # (1.3-7.7) k/uL Lymphocytes # (1.0-4.8) k/uL Sodium (137-145) mmol/L Glucose (74-99) mg/dL POC Glucose (mg/dL) 192 H (70-110) mg/dL AST (14-36) U/L ALT (4-34) U/L Alkaline Phosphatase (38-126) U/L Total Protein (6.3-8.2) g/dL Albumin (3.5-5.0) g/dL Urine Osmolality 127 L (400-1100) mOsm/kg Ur Random Sodium <20 L (40-220) mmol/L 01/08/24 01/08/24 01/08/24 Range/Units 05:53 07:25 07:25 WBC 11.3 H (3.8-10.6) k/uL RBC 2.83 L (3.80-5.40) m/uL Hgb 8.8 L (11.4-16.0) gm/dL Hct 27.1 L (34.0-46.0) % RDW 18.1 H (11.5-15.5) % Neutrophils # 10.3 H (1.3-7.7) k/uL Lymphocytes # 0.3 L (1.0-4.8) k/uL Sodium 136 L (137-145) mmol/L Glucose 137 H (74-99) mg/dL POC Glucose (mg/dL) 136 H (70-110) mg/dL AST 70 H (14-36) U/L ALT 50 H (4-34) U/L Alkaline Phosphatase 162 H (38-126) U/L Total Protein 5.3 L (6.3-8.2) g/dL Albumin 2.6 L (3.5-5.0) g/dL Urine Osmolality (400-1100) mOsm/kg Ur Random Sodium (40-220) mmol/L 01/08/24 01/08/24 Range/Units 11:33 16:33 WBC (3.8-10.6) k/uL RBC (3.80-5.40) m/uL Hgb (11.4-16.0) gm/dL Hct (34.0-46.0) % RDW (11.5-15.5) % Neutrophils # (1.3-7.7) k/uL Lymphocytes # (1.0-4.8) k/uL Sodium (137-145) mmol/L Glucose (74-99) mg/dL POC Glucose (mg/dL) 130 H 157 H (70-110) mg/dL AST (14-36) U/L ALT (4-34) U/L Alkaline Phosphatase (38-126) U/L Total Protein (6.3-8.2) g/dL Albumin (3.5-5.0) g/dL Urine Osmolality (400-1100) mOsm/kg Ur Random Sodium (40-220) mmol/L Microbiology - Last 24 Hours (Table) 01/07/24 03:09 Blood Culture - Preliminary Blood Assessment and Plan Plan: Acute left-sided weakness, with an MRI of the brain showing a right frontal lobe small metastatic deposit as the patient has metastatic pulm adenocarcinoma. History of pulmonary adenocarcinoma, none small cell lung cancer, diagnosed April 2022.. The patient currently has metastatic disease. The patient has completed a combination of carboplatin and Alimta followed by Imfinzi. The patient developed [employer] metastases in the left frontal and the patient received SBRT which she completed in October 2023. The patient was taken off Imfinzi and treated with systemic steroid due to immunotherapy induced pneumonitis Acute on chronic hypoxic respiratory failure with diffuse interstitialAnd airspace process involving both lungs. Rule out Imfinzi induced pneumonitis amada danial infection. Rule out progression of her disease as the patient has interval increase in the consolidation/masslike opacity in the left apex and interval development of right lung pulmonary nodule suspicious for malignancy. There is no evidence of any pulmonary embolism. The patient is currently on 8 L of oxygen by nasal cannula. [employer] metastases secondary to lung cancer status post SBRT Immunotherapy induced pneumonitis, currently off Imfinzi Recent diagnosis of a right lower extremity DVT and diagnosed with establishing [place] chronic obstructive pulmonary disease, mildly active. Bilateral [employer] microinfarcts based on MRI of the brain Hyponatremia, resolved. [id number] diabetes mellitus. Hyperlipidemia. Chronic hypoxemic respiratory failure. History of hypertension. Plan: MRI of the brain was noted The patient is bilateral microinfarcts in addition to a right frontal metastatic lesion Doppler of the right lower extremity shows a DVT of the popliteal/femoral vein CT angiogram showed no evidence of any pulmonary embolism. Findings are consistent with progression of lung cancer and immunotherapy induced pneumonitis and the patient is currently on IV Solu-Medrol. Continue attempts to wean down the FiO2, currently on 8 L Continue Symbicort Continue albuterol HFA [id number] 4 times a day Continue IV cefepime and vancomycin as empiric antibiotic coverage Rest of the medication were reviewed. No other change from the pulmonary standpoint. Will continue to follow. Prognosis poor based on above-mentioned comorbidities and presence of metastatic pulm adenocarcinoma.
[2024-01-09] MEDS: ALBUTEROL NEBULIZED 2.5 MG/3 ML INHALATION PRN (00:05)
--- NOTE | 2024-01-09 00:58 | P.EN ---
evaluated the patient due to ongoing concern regarding hypoxemia and worsening pulmonary status imaging is suspicious for interstitial infilterates rule out infectious process, no improvement despite multiple courses of antibiotics due to history of cancer and immunotherapy , consider possiblitity of PCP , check 1 3 beta d glucan , and start patient on Bactrim
[2024-01-09] MEDS: SULFAMETHOX-TMP 800-160MG 1 EACH TAB PO SCH (02:11)
[2024-01-09 06:20] LABS: Glucose,Whole Blood 144 mg/dL (70-110)
--- NOTE | 2024-01-09 09:51 | P.CNNES ---
History of Present Illness Consult date: 01/09/24 Reason for Consult: Embolic Infarcts on MRI Brain, back pain Chief complaint: "They told me I had a stroke the other day." History of Present Illness: Ms. Ray is a 63-year-old right-handed female with history of hypertension, hyperlipidemia, diabetes, COPD, gastrology reflux, and DVT diagnosed a few months ago for which she takes Eliquis 5 mg twice daily. She also has a history of a lung cancer diagnosed initially and April 2022. This was initially treated and improved somewhat but it appears that the cancer has reoccurred on her right lung at this time. She was admitted to [facility] on January 02 complaining of generalized weakness for the past 3 to 4 weeks as well as left hip pain and lethargy. She had did have a fall at home on December 31. Her x-ray showed left lobe multilevel opacities and CT of the head revealed increased focus in the right frontal lobe with hyperdensity significant with consideration of a microhemorrhage. She has been hypoxic with pneumonitis and is currently on antibiotics. An MRI of the brain was performed on January 07 revealing scattered punctate infarcts in the bilateral cerebellum as well as parietal lobes in addition to a posterior right frontal lobe likely metastatic lesion. Echocardiogram was ordered on January 05 and in obtained showing ejection fraction of 55 to 60% with mild pulmonary hypertension. In addition, the patient endorses low back pain towards her buttocks but denies any shooting pain down her lower extremities. Regarding the patient's embolic strokes as well as back pain, neurology was consulted for further management recommendations. Review of Systems Ears, nose, mouth and throat: Reports as per HPI Cardiovascular: Reports as per HPI Respiratory: Reports as per HPI, Reports cough Gastrointestinal: Reports as per HPI Genitourinary: Reports mixed incontinence Musculoskeletal: Reports as per HPI Integumentary: Reports as per HPI Neurological: Reports as per HPI Hematologic/Lymphatic: Reports easy bruising Past Medical History Past Medical History: COPD, Diabetes Mellitus, GERD/Reflux, Hyperlipidemia, Hypertension, Osteoarthritis (OA), Thyroid Disorder Additional Past Medical History / Comment(s): hx hepatitis c with tx., diabetes diet controlled., emphysema, back pain, hx of covid x2 (2019,2021), left lung mass., pt states mild oral thrush and started on nystatin -pt to notify Dr. Efrain BYRD. 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 , LEFT CARPAL TUNNEL RELEASE, LEFT ARTHROSCOPIC KNEE SURGERY., , RIGHT ELBOW SURGERY- (no anesthesia) Past Anesthesia/Blood Transfusion Reactions: No Reported Reaction Additional Past Anesthesia/Blood Transfusion Reaction / Comment(s): no hx of blood transfusion Past Psychological History: Anxiety Smoking Status: Former smoker Past Alcohol Use History: None Reported Additional Past Alcohol Use History / Comment(s): QUIT SMOKING 2016., STARTED SMOKING AGE 18., SMOKED 1/2PPD Past Drug Use History: None Reported - Past Family History Mother Family Medical History: No Reported History Sister(s) Family Medical History: Blood Disorder, Deep Vein Thrombosis (DVT) Additional Family Medical History / Comment(s): LEIDEN FACTOR FIVE Medications and Allergies Home Medications Medication Instructions Recorded Confirmed Type Albuterol Inhaler [Ventolin Hfa 2 puff INHALATION RT-QID PRN 12/04/21 01/03/24 H istory Inhaler] Gabapentin [Neurontin] 600 mg PO TID 12/04/21 01/03/24 History Levothyroxine Sodium [Synthroid] 88 mcg PO DAILY 12/04/21 01/03/24 History Losartan/Hydrochlorothiazide 1 tab PO DAILY 12/04/21 01/03/24 History [Losartan-Hctz 100-12.5 mg Tab] Meloxicam [Mobic] 15 mg PO DAILY 12/04/21 01/03/24 History amLODIPine [Norvasc] 5 mg PO DAILY 12/04/21 01/03/24 History buPROPion HCL [buPROPion HCL XL] 300 mg PO DAILY 12/04/21 01/03/24 History traMADol HCL 50 mg PO BID PRN 12/04/21 01/03/24 History Aspirin [Adult Low Dose Aspirin EC] 81 mg PO DAILY 04/18/22 01/03/24 History Cholecalciferol [Vitamin D3 (25 50 mcg PO DAILY 04/18/22 01/03/24 History Mcg = 1000 Iu)] Multivit with Calcium,Iron,Min 1 tab PO DAILY 04/18/22 01/03/24 History [Women's Multivitamin] Omeprazole [PriLOSEC] 40 mg PO HS 04/18/22 01/03/24 History Rosuvastatin Calcium 20 mg PO HS 04/18/22 01/03/24 History ALPRAZolam [Xanax] 0.25 mg PO DAILY PRN 01/03/24 01/03/24 History Apixaban [Eliquis] 5 mg PO BID 01/03/24 01/03/24 History Baclofen 5 mg PO TID 01/03/24 01/03/24 History Cetirizine HCl [Zyrtec] 10 mg PO DAILY 01/03/24 01/03/24 History Fluticasone/Umeclidin/Vilanter 1 puff INHALATION RT-DAILY 01/03/24 01/03/24 History [Trelegy Ellipta 100-62.5-25] Mupirocin 2% Oint [Bactroban 2% 1 applic TOPICAL TID 01/03/24 01/03/24 History Oint] Nystatin 100,000 Unit/ml Susp 500,000 ml PO QID 01/03/24 01/03/24 History [Mycostatin Oral Susp] Zinc Gluconate [Zinc] 50 mg PO DAILY 01/03/24 01/03/24 History metFORMIN HCL [Glucophage] 500 mg PO BID 01/03/24 01/03/24 History Allergies Allergy/AdvReac Type Severity Reaction Status Date / Time cefdinir Allergy SORES IN Verified 01/03/24 15:28 MOUTH" Physical Examination - Vital Signs Vital Signs: Vital Signs Temp Pulse Pulse Resp BP Pulse Ox 01/09/24 08:48 108 H 01/09/24 08:37 104 H 01/09/24 05:25 94 01/09/24 05:17 94 01/09/24 03:12 97.4 F L 95 114/71 95 01/09/24 02:00 95 21 01/09/24 00:15 94 01/09/24 00:06 92 01/09/24 00:00 97.5 F L 109 H 21 106/62 90 L 01/08/24 20:11 94 01/08/24 20:01 92 01/08/24 20:00 97.4 F L 95 21 114/71 96 01/08/24 16:28 95 01/08/24 16:22 98 01/08/24 16:20 93 01/08/24 16:00 97.0 F L 102 H 18 135/77 96 01/08/24 14:00 106 H 18 01/08/24 12:27 113 H 01/08/24 12:19 111 H 01/08/24 12:00 97.3 F L 106 H 18 131/84 94 L Intake and Output 01/08/24 01/09/24 01/09/24 22:59 06:59 14:59 Intake Total 540 840 Output Total 250 400 Balance 290 440 Intake: Intake, IV Titration 600 Amount Cefepime 2 gm In Sodium 100 Chloride 0.9% 100 ml @ 25 mls/hr IVPB Q8H [facility] Rx#: [id number] Vancomycin 1,500 mg In 500 Sodium Chloride 0.9% 500 ml 500 ml @ 167 mls/hr IVPB Q12H [facility] Rx#: [id number] Oral 540 240 Output: Urine 250 400 Other: Voiding Method Incontinent Incontinent External Catheter External Catheter - Constitutional General appearance: average body habitus - EENT EENT: PERRL - Respiratory Respiratory: chest non-tender, lungs clear, normal breath sounds - Cardiovascular Cardiovascular: regular rate, no murmurs Extremities: no peripheral edema bilaterally, no clubbing, cyanosis, no inflammation - Gastrointestinal Gastrointestinal: normoactive bowel sounds, non-tender - Integumentary Integumentary: normal - Neurologic Cranial nerve examination: PERRL, EOMI, VFF, V1/V2/V3 grossly intact, face symmetric, tongue midline Speech examination: intact Sensorimotor examination: intact Detailed motor examination: full strength in all major muscle groups Detailed sensory examination: intact Cerebellar examination: other ([id number] exam reveals no evidence of dysmetria.) Results MRI of the brain from January 07 reveals scattered punctate infarcts in the bilateral cerebellum as well as bilateral parietal lobes, in addition to a posterior right frontal lobe metastasis, likely from her history of lung cancer. Echocardiogram on January 05 revealed ejection fraction of 55 to 60% with mild pulmonary hypertension. - Laboratory Findings CBC and BMP: 01/08/24 07:25 01/08/24 07:25 Abnormal Lab Findings: Abnormal Labs 01/03/24 01/03/24 01/03/24 11:55 11:55 11:55 WBC RBC 3.32 L Hgb 10.4 L Hct 31.6 L RDW 18.9 H Neutrophils # Lymphocytes # 0.5 L PT INR APTT D-Dimer Sodium 131 L Potassium Chloride 96 L BUN 33 H Creatinine 2.33 H Glucose 143 H POC Glucose (mg/dL) Hemoglobin A1c Plasma Lactic Acid Rishi 3.7 H* Phosphorus 4.9 H Magnesium AST 56 H ALT 54 H Alkaline Phosphatase 137 H Creatine Kinase Troponin I Total Protein 6.1 L Albumin Urine Protein Urine Osmolality Ur Random Sodium 01/03/24 01/03/24 01/03/24 11:55 15:20 16:38 WBC RBC Hgb Hct RDW Neutrophils # Lymphocytes # PT INR APTT D-Dimer Sodium Potassium Chloride BUN Creatinine Glucose POC Glucose (mg/dL) Hemoglobin A1c Plasma Lactic Acid Rishi 3.1 H* Phosphorus Magnesium AST ALT Alkaline Phosphatase Creatine Kinase 226 H Troponin I 0.073 H* Total Protein Albumin Urine Protein Urine Osmolality Ur Random Sodium 01/03/24 01/03/24 01/03/24 17:06 19:55 22:10 WBC RBC Hgb Hct RDW Neutrophils # Lymphocytes # PT INR APTT D-Dimer 6.62 H Sodium Potassium Chloride BUN Creatinine Glucose POC Glucose (mg/dL) Hemoglobin A1c Plasma Lactic Acid Rishi Phosphorus Magnesium AST ALT Alkaline Phosphatase Creatine Kinase Troponin I 0.093 H* Total Protein Albumin Urine Protein Trace H Urine Osmolality Ur Random Sodium 01/03/24 01/04/24 01/04/24 22:24 10:15 10:15 WBC RBC 2.90 L Hgb 9.2 L Hct 27.9 L RDW 18.7 H Neutrophils # Lymphocytes # 0.4 L PT INR APTT D-Dimer Sodium Potassium Chloride BUN Creatinine Glucose POC Glucose (mg/dL) 117 H Hemoglobin A1c 7.6 H Plasma Lactic Acid Rishi Phosphorus Magnesium AST ALT Alkaline Phosphatase Creatine Kinase Troponin I Total Protein Albumin Urine Protein Urine Osmolality Ur Random Sodium 01/04/24 01/04/24 01/05/24 10:15 16:30 09:39 WBC RBC 2.92 L Hgb 9.3 L Hct 27.8 L RDW 18.2 H Neutrophils # Lymphocytes # 0.3 L PT INR APTT D-Dimer Sodium 136 L Potassium 3.3 L Chloride BUN 18 H Creatinine 1.07 H Glucose 105 H POC Glucose (mg/dL) 157 H Hemoglobin A1c Plasma Lactic Acid Rishi Phosphorus Magnesium 1.3 L AST 51 H ALT 51 H Alkaline Phosphatase 130 H Creatine Kinase Troponin I Total Protein 5.2 L Albumin 2.7 L Urine Protein Urine Osmolality Ur Random Sodium 01/05/24 01/05/24 01/05/24 09:39 13:00 15:41 WBC RBC 3.15 L Hgb 10.0 L Hct 30.0 L RDW 18.3 H Neutrophils # Lymphocytes # 0.4 L PT INR APTT D-Dimer Sodium 135 L Potassium 3.3 L Chloride BUN Creatinine Glucose POC Glucose (mg/dL) Hemoglobin A1c Plasma Lactic Acid Rishi Phosphorus Magnesium AST ALT Alkaline Phosphatase Creatine Kinase Troponin I 4.080 H* Total Protein Albumin Urine Protein Urine Osmolality Ur Random Sodium 01/05/24 01/05/24 01/05/24 15:41 21:21 21:21 WBC RBC Hgb Hct RDW Neutrophils # Lymphocytes # PT 14.4 H INR 1.4 H APTT 38.4 H D-Dimer Sodium Potassium Chloride BUN Creatinine Glucose POC Glucose (mg/dL) Hemoglobin A1c Plasma Lactic Acid Rishi Phosphorus Magnesium AST ALT Alkaline Phosphatase Creatine Kinase Troponin I 10.300 H* Total Protein Albumin Urine Protein Urine Osmolality Ur Random Sodium 01/06/24 01/06/24 01/06/24 06:08 06:08 06:08 WBC RBC 2.96 L Hgb 9.4 L Hct 28.0 L RDW 18.1 H Neutrophils # Lymphocytes # 0.6 L PT 14.3 H INR 1.4 H APTT 70.2 H D-Dimer Sodium 133 L Potassium Chloride BUN 6 L Creatinine Glucose 64 L POC Glucose (mg/dL) Hemoglobin A1c Plasma Lactic Acid Rishi Phosphorus Magnesium 1.1 L AST 103 H ALT 57 H Alkaline Phosphatase 153 H Creatine Kinase Troponin I Total Protein 5.2 L Albumin 2.6 L Urine Protein Urine Osmolality Ur Random Sodium 01/06/24 01/06/24 01/06/24 08:13 14:20 18:24 WBC RBC Hgb Hct RDW Neutrophils # Lymphocytes # PT INR APTT 34.9 H D-Dimer Sodium Potassium Chloride BUN Creatinine Glucose POC Glucose (mg/dL) Hemoglobin A1c Plasma Lactic Acid Rishi Phosphorus Magnesium 2.5 H AST ALT Alkaline Phosphatase Creatine Kinase Troponin I 10.000 H* Total Protein Albumin Urine Protein Urine Osmolality Ur Random Sodium 01/06/24 01/06/24 01/07/24 20:20 22:30 06:19 WBC RBC Hgb Hct RDW Neutrophils # Lymphocytes # PT INR APTT 75.1 H D-Dimer Sodium Potassium Chloride BUN Creatinine Glucose POC Glucose (mg/dL) 129 H 115 H Hemoglobin A1c Plasma Lactic Acid Rishi Phosphorus Magnesium AST ALT Alkaline Phosphatase Creatine Kinase Troponin I Total Protein Albumin Urine Protein Urine Osmolality Ur Random Sodium 01/07/24 01/07/24 01/07/24 06:20 06:20 06:20 WBC RBC 2.89 L Hgb 8.9 L Hct 27.3 L RDW 18.1 H Neutrophils # 8.1 H Lymphocytes # 0.4 L PT INR APTT 103.3 H* D-Dimer Sodium 130 L Potassium 3.3 L Chloride 96 L BUN 6 L Creatinine Glucose POC Glucose (mg/dL) Hemoglobin A1c Plasma Lactic Acid Rishi Phosphorus Magnesium AST 85 H ALT 50 H Alkaline Phosphatase 166 H Creatine Kinase Troponin I Total Protein 5.2 L Albumin 2.6 L Urine Protein Urine Osmolality Ur Random Sodium 01/07/24 01/07/24 01/07/24 07:52 16:28 16:28 WBC RBC Hgb Hct RDW Neutrophils # Lymphocytes # PT INR APTT D-Dimer Sodium Potassium Chloride BUN Creatinine Glucose POC Glucose (mg/dL) Hemoglobin A1c Plasma Lactic Acid Rishi Phosphorus Magnesium AST ALT Alkaline Phosphatase Creatine Kinase Troponin I 3.840 H* Total Protein Albumin Urine Protein Urine Osmolality 127 L Ur Random Sodium <20 L 01/07/24 01/07/24 01/08/24 16:36 20:01 05:53 WBC RBC Hgb Hct RDW Neutrophils # Lymphocytes # PT INR APTT D-Dimer Sodium Potassium Chloride BUN Creatinine Glucose POC Glucose (mg/dL) 164 H 192 H 136 H Hemoglobin A1c Plasma Lactic Acid Rishi Phosphorus Magnesium AST ALT Alkaline Phosphatase Creatine Kinase Troponin I Total Protein Albumin Urine Protein Urine Osmolality Ur Random Sodium 01/08/24 01/08/24 01/08/24 07:25 07:25 11:33 WBC 11.3 H RBC 2.83 L Hgb 8.8 L Hct 27.1 L RDW 18.1 H Neutrophils # 10.3 H Lymphocytes # 0.3 L PT INR APTT D-Dimer Sodium 136 L Potassium Chloride BUN Creatinine Glucose 137 H POC Glucose (mg/dL) 130 H Hemoglobin A1c Plasma Lactic Acid Rishi Phosphorus Magnesium AST 70 H ALT 50 H Alkaline Phosphatase 162 H Creatine Kinase Troponin I Total Protein 5.3 L Albumin 2.6 L Urine Protein Urine Osmolality Ur Random Sodium 01/08/24 01/08/24 01/09/24 16:33 19:51 06:18 WBC RBC Hgb Hct RDW Neutrophils # Lymphocytes # PT INR APTT D-Dimer Sodium Potassium Chloride BUN Creatinine Glucose POC Glucose (mg/dL) 157 H 217 H 144 H Hemoglobin A1c Plasma Lactic Acid Rishi Phosphorus Magnesium AST ALT Alkaline Phosphatase Creatine Kinase Troponin I Total Protein Albumin Urine Protein Urine Osmolality Ur Random Sodium Assessment and Plan Assessment: Ms. Ray is a 63-year-old right-handed female with history of hypertension, hyperlipidemia, diabetes, COPD, gastropathy reflux disease, deep venous thrombosis, and history of lung cancer which is now recurrent with stage IV disease. She is on Eliquis for a DVT in her lower extremity, but apparently has recently suffered embolic infarcts to her bilateral cerebellum as well as parietal areas. She has no no obvious neurologic deficits at this time. In addition she endorses some back pain to her lower back without any radiating symptoms. Plan: 1. Although I believe the patient can safely continue on Eliquis 5 mg twice daily as well as aspirin 81 mg daily for secondary stroke prophylaxis. 2. I have ordered a routine lipid panel and hemoglobin A1c evaluation for stroke risk factor evaluation and will increase the patient's Lipitor if needed she is currently on 40 mg daily. 3. I will order an MRI but with and without contrast of the lumbar spine to assess for any evidence of bony lesion or metastatic lesion to the spinal cord or to the surrounding vertebra. 4. Neurology will continue to follow her in house and make further recommend ation as needed. Time with Patient: Less than 30
[2024-01-09] MEDS ORDERED: ALPRAZolam 0.5 MG TAB PO STA (09:55)
[2024-01-09 10:15] LABS: Anisocytosis Slight; Basophils # (A) 0.1 k/uL (0-0.2); Basophils % (A) 0 %; Eosinophils # (A) 0.1 k/uL (0-0.7); Eosinophils % (A) 0 %; HCT 27.8 % (34.0-46.0); Hypochromasia Moderate; Lymphocytes # (A) 0.4 k/uL (1.0-4.8); Lymphocytes % (A) 2 %; MCH 31.3 pg (25.0-35.0); MCHC 32.4 g/dL (31.0-37.0); MCV 96.7 fL (80.0-100.0); Macrocytosis Slight; Monocytes % (A) 6 %; Neutrophils # (A) 14.9 k/uL (1.3-7.7); Neutrophils % (A) 89 %; Platelet Count 294 k/uL (150-450); Poikilocytosis Slight; RBC 2.88 m/uL (3.80-5.40); RDW 18.1 % (11.5-15.5); WBC 16.8 k/uL (3.8-10.6)
[2024-01-09 10:28] LABS: ALT 52 U/L (4-34); AST 77 U/L (14-36); African American GFR (CKD) >90 (>60 ml/min/1.73 sqM); Albumin 2.8 g/dL (3.5-5.0); Alkaline Phosphatase 211 U/L (38-126); Anion Gap 2 mmol/L; Blood Urea Nitrogen 15 mg/dL (7-17); Calcium 9.4 mg/dL (8.4-10.2); Carbon Dioxide 30 mmol/L (22-30); Chloride 106 mmol/L (98-107); Glucose 111 mg/dL (74-99); Non-African American GFR(CKD) >90 (>60 ml/min/1.73 sqM); Potassium 3.5 mmol/L (3.5-5.1); Sodium 138 mmol/L (137-145); Total Bilirubin 0.6 mg/dL (0.2-1.3); Total Protein 5.5 g/dL (6.3-8.2)
[2024-01-09 11:37] LABS: Glucose,Whole Blood 146 mg/dL (70-110)
[2024-01-09 13:54] LABS: Chol/HDL Ratio 4.07 Ratio; LDL Cholesterol,Calculated 52.9 mg/dL (0.0-131.0)
--- NOTE | 2024-01-09 14:06 | P.PN ---
Subjective Progress Note Date: 01/09/24 Patient is a 63-year-old female with hypertension, hyperlipidemia, diabetes (controlled with diet), COPD (on home oxygen for 2 L GERD, history of lung CA diagnosed in April 2022 (with history of immunotherapy and radiation being seen by Dr. Manley) and DVT (on Eliquis) who came in for generalized weakness. Patient reported 3 to 4 weeks ago, she began to experience left hip pain that was intermittent dull nonradiating to an intensity of 8 to 7 out of 10 after being admitted for DVT of the left lower extremity. She went to the ER during that time in another facility and was told that it was a muscle sprain that only required bedrest. However, on 12/27 hip pain increased severity of 10 out of 10 and was intolerable which led the patient to seek care in another ED. She was prescribed morphine IM, a muscle relaxer and advised to continue her home tramadol. Her pain was controlled throughout the week but she noticed that she became generally weak with associated lethargy which led her to be wheelchair- bound and could not perform her usual ADLs including eating or drinking. On Sunday 12/31 she also experienced a fall but she was able to catch herself and did not lose consciousness and sat down on the bathroom floor for about an hour. Patient and patient's family decided not to seek care at the time. However, because the weakness was persistent and did not go away, family and patient decided to seek care today. She denied changes in vision, tremors, facial asymmetry, chest pain, shortness of breath, calf tenderness, fever, chills, sweats, dysuria, hematuria, nausea, vomiting, diarrhea, recent travel or recent sick contacts. In the ER, chest x-ray shows left midlung airspace opacities. CT brain shows hyperdense focus on posterior right frontal lobe with suspicion for acute microhemorrhage, no evidence of midline shift or edema. EKG shows sinus rhythm with a rate of [address]-T changes low voltage good R wave progression QTc 422 WBC 9.6 hemoglobin 10.4 MCV 95 platelet count 196 sodium 131 potassium 3.9 chloride 96 bicarb 22 BUN 33 creatinine 2.33 glucose 143 plasma lactic acid 3.7 phosphorus 4.9 AST 56 ALT 54 ALP 137 troponin 0.073 albumin 3.5. On admission, patient was afebrile at 97.5 pulse rate 100 respiratory 20 blood pressure 98/54 O2 saturation 97% 01/04/2024 patient seen and examined at bedside. Patient reported that she has a cough that is productive with a sore throat. Overnight her troponin increased from 0.07-0.09 with no chest pain but noted increased oxygen demand and tachycardia. Repeat CT of the brain shows no change. V/q. perfusion scan done shows indeterminate for pulmonary embolism and findings are more likely related to chronic lung disease. Chest x-ray shows lungs with mild interval worsening of the focal opacities. WBC 7 hemoglobin 9.2 MCV 96 platelet count 166,000 sodium 136 potassium 3.3 BUN 18 creatinine 1.07 glucose 105 A1c 7.6 calcium 8.9 phosphorus 3.5 magnesium 1.3 AST 51 ALT 51 alk phos 130 albumin 2.7 01/05/2024 Patient seen and examined at bedside. No acute events overnight. Still having worsening respiratory distress. Also complaining of chest pain which quickly resolved and now having mostly back pain. EKG independently interpreted showed only shows sinus rhythm. No significant ST-T wave changes. Troponin elevated up to 4, repeat pending. Given aspirin 325. Started on low intensity heparin drip. Repeat CT head tomorrow. Cardiology also consulted. On telemetry monitoring. 01/06/2024 patient seen and examined at bedside. Patient reported to be anxious and uncomfortable due to back pain. Patient oxygenation requirement increased to 6 L and now on rebreather. WBC 9.5 hemoglobin 9.4 PT 14.3 INR 1.4 PTT 70.2 sodium 133 AST 103 ALT 57 alk phos 153 troponin 10 albumin 2.6. Chest x-ray sh ows ongoing bilateral patchy and interstitial infiltrates with minimal change from yesterday. Repeat brain CT show small microhemorrhages and small focus of increased density within the posterior right frontal lobe with no change. Echocardiogram shows left ventricular ejection fraction of 55 to 60% with no wall thickness and normal wall motion. 01/07/2024 patient seen and examined at bedside. Patient noted to have discomfort due to back pain. Currently not having any chest pain, leg tendern ess or shortness of breath at this time. She is currently on nasal cannula 12 L. Overnight, patient noted to have increased O2 demand and was placed on nonrebreather once again after being on nasal cannula for a few hours. WBC 9.7 hemoglobin 8.9 platelet count 214,000 PTT 103.3 sodium 130 potassium 3.3 chloride 96 BUN 6 creatinine 0.67 glucose 115 magnesium 1.8 calcium 8.9 AST 85 ALT 50 alk phos 166 BNP 1940 albumin 2.6 TSH 0.654 01/08/2024 patient seen and examined at bedside. Patient noted that she is uncomfortable with her back pain but otherwise had no new or worsening symptoms. She still has a productive cough. Patient still requires high flow nasal cannula now at 7 L. She denies chest pain, shortness of breath, or leg tenderness. No acute events overnight. WBC 11.3 hemoglobin 8.8 platelet count 239,000 sodium 136 potassium 3.7 chloride 107 BUN 8 creatinine 0.55 glucose 137 AST 70 ALT 15 alk phos 162 albumin 2.6 urine osmolarity 127 urine sodium less than 20 01/09/2024 patient seen and examined at bedside. Patient reported that her shortness of breath and pain is improved today. She still has a productive cough. Patient now on high flow nasal cannula at 12 L. She denies chest pain, shortness of breath, or leg tenderness. Overnight, she patient experienced hypo xemia with increasing oxygen requirements. Discussed goals of care and code status with patient and she expressed that they be made no code and that she understands current state of her clinical condition. WBC 16.6 hemoglobin 9 platelet count 294,000 sodium 138 potassium 3.5 chloride 106 bicarb 30 BUN 15 creatinine 0.63 glucose 111 calcium 9.4 total bilirubin 0.6 AST 77 ALT 52 alk phos 211 albumin 2.8 Aspergillus IgE less than 0.1 Mary albicans IgE less than 0.1. Brain MRI showed scattered bilateral microinfarcts to correlate for embolic phenomenon posterior right frontal lobe enhancement compatible with metastatic disease Review of systems: Pertinent positives and negatives as discussed in HPI, a complete review of systems was performed and all other systems are negative. Pertinent imaging and labs reviewed. Physical examination: Vital signs reviewed General: non toxic, no distress, on nasal cannula 12 L Derm: no unusual rashes/lesions, warm Head: atraumatic, normocephalic, symmetric Eyes: EOMI, anicteric sclera, pupils equal round reactive to light ENT: Nose and ears atraumatic Neck: No cervical lymphadenopathy, trachea midline, supple Mouth: no lip lesion, mucus membranes moist, some mild erythema of the throat Cardiovascular: S1S2 tachycardic, no murmur Lungs: Bilateral scattered rhonchi, no rales, no accessory muscle use Abdominal: soft, nontender to palpation, no guarding Ext: muscle strength 5 out of 5 in all 4 extremities grossly, no gross muscle atrophy, no contractures, positive dorsalis pedis pulse bilateral, no extremity edema Neuro: CN II-XI grossly intact, no gross focal neuro deficits Psych: Alert and oriented x3, appropriate affect and mood Assessment/Plan: 63-year-old woman who came in for generalized weakness with recent new medications for left hip pain. Was found to have JENNIFER #. Acute on chronic hypoxic respiratory failure, possibly immunotherapy induced pneumonitis vs community-acquired pneumonia vs Pneumocystis pneumonia, rule out other causes #. History of DVT of left lower extremity #. Acute DVT of right lower extremity Pulmonology note reviewed.continue antibiotic coverage with IV cefepime and IV vancomycin, monitor for renal toxicity. Albuterol HFA [id number] 4 times a day and Symbicort. Consider Bronchoscopy if no improvement Bactrim p.o. twice daily Continue Eliquis 5mg twice daily Per heme-onc, Solu-Medrol 60 mg IV daily for 3 days Was previously on IV Rocephin and azithromycin Venous Doppler positive for DVT of right lower extremity MRSA Nares to optimize antibiotic coverage Blood cultures no growth to date Fungal cultures pending Aspergillus IgE less than 0.1 Mary albicans IgE less than 0.1. Wean off oxygen as tolerated. Goal O2 saturation 88 to 92% #. Embolic stroke seen on brain MRI #. Brain microhemorrhages seen on CT #. History of non-small cell lung cancer diagnosed in April 2022, status post lung and brain radiation and chemotherapy #. Right sided weakness per pulmonology #. Chronic back pain Brain MRI showed scattered bilateral microinfarcts to correlate for embolic phenomenon posterior right frontal lobe enhancement compatible with metastatic disease Repeat brain CT show small microhemorrhages and small focus of increased density within the posterior right frontal lobe with no change. Neurology consulted. Ordered lumbar spine MRI with and without contrast, A1c and lipid profile Discussed goals of care and code status with patient. Patient expressed that they be made no code. Patient verbalized understanding. Will likely not be able to tolerate ANITA at the moment. #. Debility #. JENNIFER, resolved #. Hypovolemic hyponatremia, improving #. Acute normocytic anemia, stable IV fluids discontinued. Oral intake encouraged Stool occult blood pending Chest CTA showed no evidence of pulmonary embolus. Has marked interval increase in interstitial and airspace process diffusely in both lungs. Small bilateral pleural effusions. Increasing consolidation/masslike opacity in left lung apex. Urine osmolality 127 Urine sodium <20 Monitor BMP, mag PT OT consulted #. Acute NSTEMI, stable Echocardiogram shows left ventricular ejection fraction of 55 to 60% with no wall thickness and normal wall motion. Aspirin 81 mg p.o. daily and Lipitor 40 mg p.o. daily Discussed management with cardiology. Continue aspirin and atorvastatin. Continue Eliquis 5 mg p.o. twice daily. No planned intervention. #. Transaminitis, stable Patient not experiencing any right upper quadrant pain Monitor CMP #. Hypokalemia, resolved #. Hypomagnesemia, resolved #. Right hip pain, stable Acetaminophen 650 mg p.o. every 6 hours as needed Gabapentin 100 mg p.o. 3 times daily #. Epistaxis, resolved Chronic Conditions: #. [id number] type 2 diabetes, controlled #. Hyperlipidemia #. COPD on home oxygen #. GERD #. Hypertension Insulin sliding scale low-dose less than 70 kg ACHS, monitor for hypoglycemia Accu-Cheks ACHS A1c 7.6 Continue albuterol inhaler and Trelegy inhaler Hold metformin, amlodipine, aspirin, baclofen, meloxicam and losartan/hydrochlorothiazide F: Oral intake E: None for now N: Renal diet A: Fall precautions needs ambulation support DVT ppx: Eliquis PO Dispo: Pending clinical course. Prognosis guarded patient critically ill. Julianne Owens MD PGY-1/Library Consultant Dictation was produced using [employer] dictation software. please excuse any grammatical, word or spelling errors. I have seen and evaluated the patient today. Discussed with the resident and agree with the residents finding and plan as documented in the resident's note. Changes highlighted in blue font. Objective - Vital Signs Vital signs: Vital Signs Temp 97.4 F L 01/09/24 03:12 Pulse 94 01/09/24 05:25 Resp 21 01/09/24 03:12 BP 114/71 01/09/24 03:12 Pulse Ox 95 01/09/24 03:12 FiO2 Intake & Output 01/08/24 01/09/24 01/09/24 18:59 06:59 18:59 Intake Total 660 840 Output Total 600 650 Balance 60 190 Intake: Intake, IV Titration 600 Amount Cefepime 2 gm In Sodium 100 Chloride 0.9% 100 ml @ 25 mls/hr IVPB Q8H [facility] Rx#: [id number] Vancomycin 1,500 mg In 500 Sodium Chloride 0.9% 500 ml 500 ml @ 167 mls/hr IVPB Q12H [facility] Rx#: [id number] Oral 660 240 Output: Urine 600 650 Other: Voiding Method External Catheter Incontinent External Catheter - Labs CBC & Chem 7: 01/09/24 09:47 01/09/24 09:47 Labs: Abnormal Lab Results - Last 24 Hours (Table) 01/08/24 01/08/24 01/08/24 Range/Units 07:25 07:25 11:33 WBC 11.3 H (3.8-10.6) k/uL RBC 2.83 L (3.80-5.40) m/uL Hgb 8.8 L (11.4-16.0) gm/dL Hct 27.1 L (34.0-46.0) % RDW 18.1 H (11.5-15.5) % Neutrophils # 10.3 H (1.3-7.7) k/uL Lymphocytes # 0.3 L (1.0-4.8) k/uL Sodium 136 L (137-145) mmol/L Glucose 137 H (74-99) mg/dL POC Glucose (mg/dL) 130 H (70-110) mg/dL AST 70 H (14-36) U/L ALT 50 H (4-34) U/L Alkaline Phosphatase 162 H (38-126) U/L Total Protein 5.3 L (6.3-8.2) g/dL Albumin 2.6 L (3.5-5.0) g/dL 01/08/24 01/08/24 01/09/24 Range/Units 16:33 19:51 06:18 WBC (3.8-10.6) k/uL RBC (3.80-5.40) m/uL Hgb (11.4-16.0) gm/dL Hct (34.0-46.0) % RDW (11.5-15.5) % Neutrophils # (1.3-7.7) k/uL Lymphocytes # (1.0-4.8) k/uL Sodium (137-145) mmol/L Glucose (74-99) mg/dL POC Glucose (mg/dL) 157 H 217 H 144 H (70-110) mg/dL AST (14-36) U/L ALT (4-34) U/L Alkaline Phosphatase (38-126) U/L Total Protein (6.3-8.2) g/dL Albumin (3.5-5.0) g/dL Microbiology - Last 24 Hours (Table) 01/03/24 16:34 Blood Culture - Final Blood 01/07/24 03:09 Blood Culture - Preliminary Blood
[2024-01-09] MEDS ORDERED: Potassium Replacement Protocol 1 EACH MISC MISCELLANE PRN ×2 (14:14→14:57)
[2024-01-09] MEDS: VANCOMYCIN TROUGH DUE 1 EACH MISC MISCELLANE ONE (14:23)
--- NOTE | 2024-01-09 14:39 | P.PN ---
Subjective Progress Note Date: 01/09/24 63-year-old female who was seen in the emergency department, January 02. The patient apparently came in with left-sided weakness, for 3 days. She apparently was having a poor balance, difficulty concentrating, and dizziness, which is why she came into the emergency room. The patient also apparently recently sustained a fall. The patient is on Eliquis. The patient has a history of lung cancer, and sees Dr. Manley for this. Other medical history includes COPD, diabetes, acid reflux disease, hyperlipidemia, hypertension, hypothyroidism, hepatitis C, and lung cancer. Chest x-ray shows some patchy left midlung airspace disease, potentially consistent with pneumonia. CT scan of the brain showed a single hyperdense focus within the posterior right frontal lobe, potentially concerning for microhemorrhage. A pulmonary ventilation/perfusion lung scan, was indeterminate for pulmonary embolism, and likely related to chronic lung disease. Current labs include a white count 6.7, hemoglobin 9.3, hematocrit 27.8, and platelet count of 152,000. Sodium 136, potassium 3.8, chlorides 107, CO2 26, BUN 18, creatinine 1.07. The patient's procalcitonin level was normal at 0.37. Glucose is 106. Urinary Legionella antigen, was negative. UA was negative. On 01/06/2024, the patient is being seen for a follow-up. The patient remains on oxygen at 60 Dyspamet 6 L nasal cannula with a pulse ox of 94%. The patient has history of non small cell lung cancer under the care of medical oncology. The patient has undergone a previous left lower lobe wedge resection and the pathology was consistent with adenocarcinoma and the patient had no regional lymph node and the patient was given a T1 c N0 M0 disease. Upon subsequent surveillance, the patient had a new right midlung pulmonary nodule and also suspicious uptake in the left infrahilar and mediastinal lymph nodes and subsequent PET/CT was also positive for mediastinal and left cervical and left infrahilar lymphadenopathy and an ultrasound-guided of the left labs lymph node neck biopsy was positive for metastatic adenocarcinoma, PD-L1 expression was 90%, NGS and liquid biopsy was negative for any targeted mutation and the patient was given a combination of cisplatin, Alimta and concurrent radiation therapy. Subsequently, the patient was started on Imfinzi and subsequent follow-up showed that the patient had a 8 mm right frontal lobe lesion in the brain and most recent CAT scan of the chest from 09/24/2023 showed evidence of pneumonitis and based on that Imfinzi was held. She was given systemic steroids. SBRT to the solitary brain lesion was done on October 2023. The patient also was in [place] where she was diagnosed having left lower extremity DVT and for that reason she was started on anticoagulation with Eliq uis. Nevertheless, during this current admission, she presented to us with 3- day history of left-sided weakness and the patient had an abnormal CAT scan of the brain and review of the CAT scans showed a small focus of increased density in the posterior right frontal lobe which could represent a small area of microhemorrhage. MRI of the brain was recommended. During this current admission, the patient also had a VQ scan that showed intermediate probability for pulmonary embolism. Echocardiogram done today showed a preserved LV function with an EF of around 55 to 60%. RV size and function was within normal and there was only a mild degree of pulmonary hypertension. The patient has COPD, diabetes mellitus, hyperlipidemia and hypertension. The EKG showed a normal sinus rhythm. On 01/07/2024, the patient is being seen for a follow-up. The patient is still hypoxic. Overnight, the patient was brought down to 12 L nasal cannula and currently she is down to 9 L. Based on history, I did some further investigation. I ordered a Doppler of lower extremity and the patient was found to have a positive DVT in the right lower extremity involving the right popliteal and the posterior tibial veins. I also obtain a CT of the chest that showed no evidence of any pulm embolism. There was evidence of interstitial and airspace process diffuse in both lungs which had markedly increased and this is probably a reflection of pneumonitis probably due to immunotherapy as the patient was taking Imfinzi on outpatient basis. Possibility of infection versus neoplasm cannot be completely excluded and the patient is currently on IV Solu- Medrol. There is also interval increase in the consolidation/masslike opacity in the left lung apex and interval development of small bilateral pleural e ffusion left more than right and there is also interval development of a right lung pulmonary nodule suspicious for recurrent/progressive lung cancer. The gallbladder was also distended without gallstones. Noted the patient has metastatic pulmonary adenocarcinoma and the patient was taken off Imfinzi due to concerns of pneumonitis. She also has an acute CVA. The patient remains on IV heparin. There was a concern of a RADIOGRAPHER ANGIOGRAM bleed and the patient has not been committed to oral anticoagulants yet and the patient remains on IV heparin. There is a small focus of increased density within the posterior right frontal lobe which could represent small microhemorrhage versus mass to the brain. Not ed the patient had previous history of RADIOGRAPHER ANGIOGRAM metastases and the patient has received SBRT to the brain lesion back in October 2023. Oncology is on the case. The patient was a count of 9.7, he was 8.9 and a platelet count of 214. BUN 6 with a creatinine of 0.67 and sodium levels at 130. Troponins have been downtrending is currently down to 3.8. The viral screen was done yesterday and essentially negative. On 01/08/2024, the patient remains clinically stable. Anticoagulation was started and the patient is currently on Eliquis 5 mg p.o. twice a day. Oxygenation is also stable and the patient is currently on 80s of oxygen by nasal cannula which is essentially the same as yesterday. Afebrile. Denies having any significant shortness of breath at rest. MRI of the brain was also completed today and the patient was found to have evidence of scattered bilateral microinfarcts could be potentially embolic in nature. At the same time, there was a posterior right frontal small area of enhancement compatible with metastatic disease and nonspecific chronic white matter changes. The jacque ent remains on IV Solu-Medrol regarding immunotherapy induced pneumonitis. The patient remains on IV cefepime and vancomycin. Labs from today shows a white cell count of 11.3 with a hemoglobin 8.8 and a platelet count of 239. BUN is 8 with a creatinine of 0.55 and a sodium levels at 136. She does have some mild transaminitis and the LFTs are normal. Troponins have been downtrending down to 3.8. No chest pain for now. The viral screen from yesterday was negative. On 01/09/2024, the patient is being seen for a follow-up. Overall condition is unchanged compared to yesterday. She remains on high flow oxygen at 10 L with a pulse ox of 91%. No new onset focal neurological deficits. No headaches. She does have some mild respiratory distress even at baseline. She does have bilateral RADIOGRAPHER ANGIOGRAM microinfarcts and a metastatic lesion in the right frontal lobe of the brain. The patient is on anticoagulation with Eliquis 5 mg p.o. twice a day regarding history of a right lower extremity DVT. No evidence of any pulmonary embolism. She remains on IV Solu-Medrol regarding immunotherapy induced pneumonitis. MRI of the lumbar spine was also requested to rule out mets to the spinal cord or the surrounding vertebra. In terms of antibiotic coverage, this is an empiric antibiotic coverage with IV cefepime and vancomycin. Rest of the medications remain unchanged. The white cell count is 16.8, hemoglobin is at 9 with a platelet count of 294. BUN is 15 with a creatinine of 0.6 and a sodium levels at 138. Potassium level is at 3.5. BUN is 15 with a creatinine of 0.6. There is transaminitis with a AST of 77, ALT of 52 with an alkaline phosphatase of 211. Objective - Vital Signs Vital signs: Vital Signs Temp 97.6 F 01/09/24 08:00 Pulse 108 H 01/09/24 08:48 Resp 22 01/09/24 08:00 BP 111/70 01/09/24 08:00 Pulse Ox 92 L 01/09/24 08:00 FiO2 Intake & Output 01/08/24 01/09/24 01/09/24 18:59 06:59 18:59 Intake Total 660 840 Output Total 600 650 Balance 60 190 Intake: Intake, IV Titration 600 Amount Cefepime 2 gm In Sodium 100 Chloride 0.9% 100 ml @ 25 mls/hr IVPB Q8H [facility] Rx#: [id number] Vancomycin 1,500 mg In 500 Sodium Chloride 0.9% 500 ml 500 ml @ 167 mls/hr IVPB Q12H [facility] Rx#: [id number] Oral 660 240 Output: Urine 600 650 Other: Voiding Method External Catheter Incontinent Incontinent External Catheter External Catheter - Exam No acute distress, oriented 3. Patient is currently on 7 L nasal cannula. HEENT examination is grossly unremarkable. Neck supple. Full range of motion. No adenopathy thyromegaly or neck vein distention. Cardiovascular examination reveals regular rhythm rate. S1-S2 normal. No S3 or S4. No discernible murmur noted. Lungs reveal scattered bilateral mild/moderate expiratory wheezes and rhonchi. No crackles. Breath sounds equal bilaterally. Abdomen soft bowel sounds are heard. No masses or tenderness. Extremities are intact. No cyanosis clubbing or edema. Skin is without rash or lesion. Neurologic examination reveals mild left-sided weakness. - Labs CBC & Chem 7: 01/09/24 09:47 01/09/24 09:47 Labs: Abnormal Lab Results - Last 24 Hours (Table) 01/08/24 01/08/24 01/08/24 Range/Units 11:33 16:33 19:51 WBC (3.8-10.6) k/uL RBC (3.80-5.40) m/uL Hgb (11.4-16.0) gm/dL Hct (34.0-46.0) % RDW (11.5-15.5) % Neutrophils # (1.3-7.7) k/uL Lymphocytes # (1.0-4.8) k/uL Glucose (74-99) mg/dL POC Glucose (mg/dL) 130 H 157 H 217 H (70-110) mg/dL AST (14-36) U/L ALT (4-34) U/L Alkaline Phosphatase (38-126) U/L Total Protein (6.3-8.2) g/dL Albumin (3.5-5.0) g/dL 01/09/24 01/09/24 01/09/24 Range/Units 06:18 09:47 09:47 WBC 16.8 H (3.8-10.6) k/uL RBC 2.88 L (3.80-5.40) m/uL Hgb 9.0 L (11.4-16.0) gm/dL Hct 27.8 L (34.0-46.0) % RDW 18.1 H (11.5-15.5) % Neutrophils # 14.9 H (1.3-7.7) k/uL Lymphocytes # 0.4 L (1.0-4.8) k/uL Glucose 111 H (74-99) mg/dL POC Glucose (mg/dL) 144 H (70-110) mg/dL AST 77 H (14-36) U/L ALT 52 H (4-34) U/L Alkaline Phosphatase 211 H (38-126) U/L Total Protein 5.5 L (6.3-8.2) g/dL Albumin 2.8 L (3.5-5.0) g/dL Microbiology - Last 24 Hours (Table) 01/03/24 16:34 Blood Culture - Final Blood 01/07/24 03:09 Blood Culture - Preliminary Blood Assessment and Plan Plan: Acute left-sided weakness, with an MRI of the brain showing a right frontal lobe small metastatic deposit as the patient has metastatic pulm adenocarcinoma. In addition to that, the patient has bilateral RADIOGRAPHER ANGIOGRAM microinfarcts. History of pulmonary adenocarcinoma, none small cell lung cancer, diagnosed April 2022.. The patient currently has metastatic disease. The patient has c ompleted a combination of carboplatin and Alimta followed by Imfinzi. The patient developed RADIOGRAPHER ANGIOGRAM metastases in the left frontal and the patient received SBRT which she completed in October 2023. The patient was taken off Imfinzi and treated with systemic steroid due to immunotherapy induced pneumonitis Acute on chronic hypoxic respiratory failure with diffuse interstitial And airspace process involving both lungs. Rule out Imfinzi induced pneumonitis versus infection. Rule out progression of her disease as the patient has interval increase in the consolidation/masslike opacity in the left apex and interval development of right lung pulmonary nodule suspicious for malignancy. There is no evidence of any pulmonary embolism. The patient is currently on 10 L of oxygen nasal cannula RADIOGRAPHER ANGIOGRAM metastases secondary to lung cancer status post SBRT Immunotherapy induced pneumonitis, currently off Imfinzi Recent diagnosis of a right lower extremity DVT and diagnosed with establishing [place] chronic obstructive pulmonary disease, mildly active. Bilateral RADIOGRAPHER ANGIOGRAM microinfarcts based on MRI of the brain Hyponatremia, resolved. [id number] diabetes mellitus. Hyperlipidemia. Chronic hypoxemic respiratory failure. History of hypertension. Plan: MRI of the brain was noted, MRI of the spine was requested by neurology to rule out any spine or vertebral metastases The patient is bilateral microinfarcts in addition to a right frontal metastatic lesion Doppler of the right lower extremity shows a DVT of the popliteal/femoral vein CT angiogram showed no evidence of any pulmonary embolism. Findings are consistent with progression of lung cancer and immunotherapy induced pneumonitis and the patient is currently on IV Solu-Medrol. Continue attempts to wean down the FiO2, currently on 10 Continue Symbicort Continue albuterol HFA [id number] 4 times a day Continue IV cefepime and vancomycin as empiric antibiotic coverage Rest of the medication were reviewed. No other change from the pulmonary standpoint. Prognosis poor based on above-mentioned comorbidities and presence of metastatic pulm adenocarcinoma. Will continue to follow.
[2024-01-09] MEDS: POTASSIUM CHLORIDE ER 20 MEQ TAB.ER PO SCH (16:20)
[2024-01-09 16:40] LABS: Glucose,Whole Blood 174 mg/dL (70-110)
[2024-01-09 20:12] LABS: Glucose,Whole Blood 155 mg/dL (70-110)
[2024-01-10 06:06] LABS: Glucose,Whole Blood 98 mg/dL (70-110)
[2024-01-10 06:32] LABS: ALT 54 U/L (4-34); AST 86 U/L (14-36); African American GFR (CKD) >90 (>60 ml/min/1.73 sqM); Albumin 2.8 g/dL (3.5-5.0); Alkaline Phosphatase 219 U/L (38-126); Anion Gap 4 mmol/L; Blood Urea Nitrogen 18 mg/dL (7-17); Calcium 9.6 mg/dL (8.4-10.2); Carbon Dioxide 28 mmol/L (22-30); Chloride 108 mmol/L (98-107); Glucose 91 mg/dL (74-99); Non-African American GFR(CKD) >90 (>60 ml/min/1.73 sqM); Potassium 4.4 mmol/L (3.5-5.1); Sodium 140 mmol/L (137-145); Total Bilirubin 0.6 mg/dL (0.2-1.3); Total Protein 5.6 g/dL (6.3-8.2)
[2024-01-10 07:56] LABS: Anisocytosis Slight; Basophils # (A) 0.1 k/uL (0-0.2); Basophils % (A) 0 %; Eosinophils # (A) 0.2 k/uL (0-0.7); Eosinophils % (A) 1 %; HCT 29.1 % (34.0-46.0); HGB 9.2 gm/dL (11.4-16.0); Hypochromasia Moderate; Lymphocytes # (A) 0.5 k/uL (1.0-4.8); Lymphocytes % (A) 3 %; MCH 30.9 pg (25.0-35.0); MCHC 31.7 g/dL (31.0-37.0); MCV 97.2 fL (80.0-100.0); Macrocytosis Slight; Mean Platelet Volume 8.6; Monocytes # (A) 1.1 k/uL (0-1.0); Monocytes % (A) 6 %; Neutrophils % (A) 89 %; Platelet Count 322 k/uL (150-450); Poikilocytosis Slight; RBC 2.99 m/uL (3.80-5.40); RDW 18.7 % (11.5-15.5)
[2024-01-10] MEDS: methylPREDNISolone SOD SUCCI 125 MG/2 ML VIAL IV SCH (08:30)
--- NOTE | 2024-01-10 10:39 | P.PN ---
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 Ms. Ray is a 63-year-old right-handed female with history of hypertension, hyperlipidemia, diabetes, COPD, gastrology reflux, and DVT diagnosed a few months ago for which she takes Eliquis 5 mg twice daily. She also has a history of a lung cancer diagnosed initially and April 2022. This was initially treated and improved somewhat but it appears that the cancer has reoccurred on her right lung at this time. She was admitted to [facility] on January 02 complaining of generalized weakness for the past 3 to 4 weeks as well as left hip pain and lethargy. She had did have a fall at home on December 31. Her x-ray showed left lobe multilevel opacities and CT of the head revealed increased focus in the right frontal lobe with hyperdensity significant with consideration of a microhemorrhage. She has been hypoxic with pneumonitis and i s currently on antibiotics. An MRI of the brain was performed on January 07 revealing scattered punctate infarcts in the bilateral cerebellum as well as parietal lobes in addition to a posterior right frontal lobe likely metastatic lesion. Echocardiogram was ordered on January 05 and in obtained showing ejection fraction of 55 to 60% with mild pulmonary hypertension. In addition, the patient endorses low back pain towards her buttocks but denies any shooting pain down her lower extremities. When seen initially on January 09, 2024. An MRI of the low back with and without contrast was ordered to delineate her back complaints and a lipid panel as well as A1c were ordered for stroke risk factor workup. On January 09, the patient is seen in her room with her with her son by her side. Her ID CODE STATUS was changed to DO NOT RESUSCITATE, however a full discussion of the patient's diagnosis and prognosis has not been had yet by the primary team. She is reporting some significant back pain and received pain medicine just a few minutes before I came in the room. She is significantly sedated and not following commands well. However she does not appear to have any focal neurologic deficits though she does not move her legs well to distal stimulation. Assessment: Ms. Ray is a 63-year-old right-handed female with history of hypertension, hyperlipidemia, diabetes, COPD, GL reflux disease, deep venous thrombosis of the left lower extremity on the metastatic lung cancer diagnosed in April of last year. She has come in the hospital now with new embolic infarcts scattered over the cerebellum and parietal areas. She also complains of back pain significantly and an MRI has been ordered to to look at this. 1. The patient will receive an MRI of her lumbar spine hopefully today under sedation with Xanax 0.5 mg p.o. prior to the MRI. This will hopefully provide some diagnosed as well as prognostic information about her overall condition. 2. I will review her lipid panel as well as hemoglobin A1c and make further recommendations in terms of her cholesterol protection and/or diabetic management. 3. Neurology will continue to follow the patient in house, however it may need to be on an intermittent basis from now on. Objective - Vital Signs Vital signs: Vital Signs Temp 97.7 F 01/10/24 04:00 Pulse 102 H 01/10/24 09:26 Resp 21 01/10/24 08:19 BP 126/80 01/10/24 08:19 Pulse Ox 91 L 01/10/24 09:16 FiO2 Intake & Output 01/09/24 01/10/24 01/10/24 18:59 06:59 18:59 Intake Total 1080 Output Total 400 200 Balance -400 880 Weight 95.5 kg Intake: Intake, IV Titration 600 Amount Cefepime 2 gm In Sodium 100 Chloride 0.9% 100 ml @ 25 mls/hr IVPB Q8H [facility] Rx#: [id number] Vancomycin 1,500 mg In 500 Sodium Chloride 0.9% 500 ml 500 ml @ 167 mls/hr IVPB Q12H [facility] Rx#: [id number] Oral 480 Output: Urine 400 200 Other: Voiding Method Incontinent Incontinent External Catheter External Catheter - Labs CBC & Chem 7: 01/10/24 05:58 01/10/24 05:58 Labs: Abnormal Lab Results - Last 24 Hours (Table) 01/09/24 01/09/24 01/09/24 Range/Units 09:47 09:47 11:35 WBC (3.8-10.6) k/uL RBC (3.80-5.40) m/uL Hgb (11.4-16.0) gm/dL Hct (34.0-46.0) % RDW (11.5-15.5) % Neutrophils # (1.3-7.7) k/uL Lymphocytes # (1.0-4.8) k/uL Monocytes # (0-1.0) k/uL Chloride (98-107) mmol/L BUN (7-17) mg/dL POC Glucose (mg/dL) 146 H (70-110) mg/dL Hemoglobin A1c 7.2 H (<=6.0) % AST (14-36) U/L ALT (4-34) U/L Alkaline Phosphatase (38-126) U/L Total Protein (6.3-8.2) g/dL Albumin (3.5-5.0) g/dL Triglycerides 158.00 H (0.00-149.00) mg/dL HDL Cholesterol 27.50 L (40.00-60.00) mg/dL 01/09/24 01/09/24 01/10/24 Range/Units 16:39 20:10 05:58 WBC 18.0 H (3.8-10.6) k/uL RBC 2.99 L (3.80-5.40) m/uL Hgb 9.2 L (11.4-16.0) gm/dL Hct 29.1 L (34.0-46.0) % RDW 18.7 H (11.5-15.5) % Neutrophils # 16.0 H (1.3-7.7) k/uL Lymphocytes # 0.5 L (1.0-4.8) k/uL Monocytes # 1.1 H (0-1.0) k/uL Chloride (98-107) mmol/L BUN (7-17) mg/dL POC Glucose (mg/dL) 174 H 155 H (70-110) mg/dL Hemoglobin A1c (<=6.0) % AST (14-36) U/L ALT (4-34) U/L Alkaline Phosphatase (38-126) U/L Total Protein (6.3-8.2) g/dL Albumin (3.5-5.0) g/dL Triglycerides (0.00-149.00) mg/dL HDL Cholesterol (40.00-60.00) mg/dL 01/10/24 Range/Units 05:58 WBC (3.8-10.6) k/uL RBC (3.80-5.40) m/uL Hgb (11.4-16.0) gm/dL Hct (34.0-46.0) % RDW (11.5-15.5) % Neutrophils # (1.3-7.7) k/uL Lymphocytes # (1.0-4.8) k/uL Monocytes # (0-1.0) k/uL Chloride 108 H (98-107) mmol/L BUN 18 H (7-17) mg/dL POC Glucose (mg/dL) (70-110) mg/dL Hemoglobin A1c (<=6.0) % AST 86 H (14-36) U/L ALT 54 H (4-34) U/L Alkaline Phosphatase 219 H (38-126) U/L Total Protein 5.6 L (6.3-8.2) g/dL Albumin 2.8 L (3.5-5.0) g/dL Triglycerides (0.00-149.00) mg/dL HDL Cholesterol (40.00-60.00) mg/dL Microbiology - Last 24 Hours (Table) 01/07/24 03:09 Blood Culture - Preliminary Blood
[2024-01-10 11:20] VITALS: BP 137/83; PULSE 118; RESP 22; TEMP 97.5
[2024-01-10 11:45] LABS: Glucose,Whole Blood 159 mg/dL (70-110)
[2024-01-10] MEDS ORDERED: FUROSEMIDE 10 MG/ML 4 ML VIAL IV STA (12:06)
--- NOTE | 2024-01-10 15:26 | P.DS ---
Providers Date of admission: 01/03/24 14:09 Attending physician: Derek Pérez Consults: 01/03/24 14:05 Consult Physician Urgent Consulting Provider: Ernesto Orozco Consult Reason/Comments: Oncological care, review ct plz Do you want consulting provider notified?: Yes 01/05/24 08:11 Consult Physician Urgent Consulting Provider: Maicol Awad Consult Reason/Comments: Lung Cancer Copd Do you want consulting provider notified?: Yes 01/09/24 08:07 Consult Physician Routine Consulting Provider: Stanton Awad Consult Reason/Comments: embolic strokes? Do you want consulting provider notified?: Yes Primary care physician: [place] Hospital Course: Hospital Course: Patient is a 63-year-old female with hypertension, hyperlipidemia, diabetes (controlled with diet), COPD (on home oxygen for 2 L GERD, history of lung CA diagnosed in April 2022 (with history of immunotherapy and radiation being seen by Dr. Manley) and DVT (on Eliquis) who came in for generalized weakness. In the ER, chest x-ray shows left midlung airspace opacities. CT brain shows hyperdense focus on posterior right frontal lobe with suspicion for acute microhemorrhage, no evidence of midline shift or edema. EKG shows sinus rhythm with a rate of [address]-T changes low voltage good R wave progression QTc 422 WBC 9.6 hemoglobin 10.4 MCV 95 platelet count 196 sodium 131 potassium 3.9 chloride 96 bicarb 22 BUN 33 creatinine 2.33 glucose 143 plasma lactic acid 3.7 phosphorus 4.9 AST 56 ALT 54 ALP 137 troponin 0.073 albumin 3.5. On admission, patient was afebrile at 97.5 pulse rate 100 respiratory 20 blood pressure 98/54 O2 saturation 97% Patient was admitted for an evaluation of debility, JENNIFER, pneumonia. Due to patient's current diagnosis of non-small cell lung cancer treated with immunotherapy hematology was also consulted. Patient was placed on IV fluids, nephrotoxic agents withheld and resolved on 01/05. Patient's troponins taken on admission continue to trend upward and cardiology was consulted for NSTEMI. IV heparin was given for 3 days and echocardiogram was done and resulted to have preserved ejection fraction. Cardiac catheterization contraindicated due to patient's acute conditions. Patient did not improve with azithromycin and ceftriaxone for pneumonia and O2 requirements increased. Pulmonology was consulted. Albuterol and Atrovent were initiated in addition to Symbicort. Heme-onc placed her on IV Solu-Medrol for concern for pneumonitis due to Imfinzi. Bactrim was also initiated for concern for pneumocystis pneumonia. Doppler of lower extremities were ordered per pulmonology due to increased O2 demands and was found to have positive DVT in right lower extremity. CTA of the chest showed no evidence of pulmonary embolism and showed marked interval increase in interstitial and air space processes diffusely in both lungs. CT brain was repeated and showed stable hyperdense focus on the posterior right frontal lobe with suspicion for hemorrhages or metastasis. MRI brain was ordered and found to have scattered bilateral microinfarcts potentially embolic infarcts to her bilateral cerebellum. Neurology consulted and MRI with and without contrast of her lumbar spine was ordered to determine metastasis. On 01/08, patient wished to be placed on no CODE STATUS. On 01/09, goals of care discussion was done with patient and patient's family and requested to explore options of hospice care. After discussion with hospice, patient and family agreed to be discharged to hospice today. Final Diagnosis: #. Acute on chronic hypoxic respiratory failure, possibly immunotherapy induced pneumonitis vs community-acquired pneumonia vs Pneumocystis pneumonia, rule out other causes #. History of DVT of left lower extremity #. Acute DVT of right lower extremity #. Embolic stroke seen on brain MRI #. Brain microhemorrhages seen on CT #. History of non-small cell lung cancer diagnosed in April 2022, status post lung and brain radiation and chemotherapy #. Right sided weakness per pulmonology #. Chronic back pain #. Debility #. JENNIFER, resolved #. Hypovolemic hyponatremia, improving #. Acute normocytic anemia, stable #. Acute NSTEMI, stable #. Transaminitis, stable #. Hypokalemia, resolved #. Hypomagnesemia, resolved #. Right hip pain, stable #. Epistaxis, resolved #. [id number] type 2 diabetes, controlled #. Hyperlipidemia #. COPD on home oxygen #. GERD #. Hypertension Physical examination: Vital signs reviewed General: non toxic, no distress, on nasal cannula 15 L, appears fatigued Derm: no unusual rashes/lesions, warm Head: atraumatic, normocephalic, symmetric Eyes: EOMI, no lid lag, anicteric sclera, pupils equal round reactive to light ENT: Nose and ears atraumatic Neck: No cervical lymphadenopathy, trachea midline, supple Mouth: no lip lesion, mucus membranes moist Cardiovascular: S1S2 reg, no murmur, Lungs: CTA bilateral, no rhonchi, no rales, no accessory muscle use Abdominal: soft, nondistended, nontender to palpation, no guarding Ext: muscle strength 5 out of 5 in all 4 extremities grossly, no gross muscle atrophy, no contractures, positive dorsalis pedis pulse bilateral, no edema Neuro: CN II-XI grossly intact, no gross focal neuro deficits Psych: Alert, oriented, appropriate affect and mood I saw and evaluated the patient during the kimble and critical portions of this encounter, and discussed the case in detail with the resident author of this note, I agree with the Assessment and Plan, and my changes, if any, are highlighted in blue. Plan - Discharge Summary Discharge Rx Participant: Yes New Discharge Prescriptions: No Action Losartan/Hydrochlorothiazide [Losartan-Hctz 100-12.5 mg Tab] 1 tab PO DAILY Meloxicam [Mobic] 15 mg PO DAILY Albuterol Inhaler [Ventolin Hfa Inhaler] 2 puff INHALATION RT-QID PRN PRN Reason: Shortness Of Breath Or Wheezing Omeprazole [PriLOSEC] 40 mg PO HS Multivit with Calcium,Iron,Min [Women's Multivitamin] 1 tab PO DAILY Aspirin [Adult Low Dose Aspirin EC] 81 mg PO DAILY Apixaban [Eliquis] 5 mg PO BID Baclofen 5 mg PO TID Fluticasone/Umeclidin/Vilanter [Trelegy Ellipta 100-62.5-25] 1 puff INHALATION RT-DAILY Nystatin 100,000 Unit/ml Susp [Mycostatin Oral Susp] 500,000 ml PO QID amLODIPine [Norvasc] 5 mg PO DAILY Levothyroxine Sodium [Synthroid] 88 mcg PO DAILY traMADol HCL 50 mg PO BID PRN PRN Reason: Pain Gabapentin [Neurontin] 600 mg PO TID buPROPion HCL [buPROPion HCL XL] 300 mg PO DAILY Rosuvastatin Calcium 20 mg PO HS Cholecalciferol [Vitamin D3 (25 Mcg = 1000 Iu)] 50 mcg PO DAILY ALPRAZolam [Xanax] 0.25 mg PO DAILY PRN PRN Reason: Anxiety metFORMIN HCL [Glucophage] 500 mg PO BID Mupirocin 2% Oint [Bactroban 2% Oint] 1 applic TOPICAL TID Cetirizine HCl [Zyrtec] 10 mg PO DAILY Zinc Gluconate [Zinc] 50 mg PO DAILY Discharge Medication List Albuterol Inhaler [Ventolin Hfa Inhaler] 2 puff INHALATION RT-QID PRN 12/04/21 [History] Gabapentin [Neurontin] 600 mg PO TID 12/04/21 [History] Levothyroxine Sodium [Synthroid] 88 mcg PO DAILY 12/04/21 [History] Losartan/Hydrochlorothiazide [Losartan-Hctz 100-12.5 mg Tab] 1 tab PO DAILY 12/04/21 [History] Meloxicam [Mobic] 15 mg PO DAILY 12/04/21 [History] amLODIPine [Norvasc] 5 mg PO DAILY 12/04/21 [History] buPROPion HCL [buPROPion HCL XL] 300 mg PO DAILY 12/04/21 [History] traMADol HCL 50 mg PO BID PRN 12/04/21 [History] Aspirin [Adult Low Dose Aspirin EC] 81 mg PO DAILY 04/18/22 [History] Cholecalciferol [Vitamin D3 (25 Mcg = 1000 Iu)] 50 mcg PO DAILY 04/18/22 [History] Multivit with Calcium,Iron,Min [Women's Multivitamin] 1 tab PO DAILY 04/18/22 [History] Omeprazole [PriLOSEC] 40 mg PO HS 04/18/22 [History] Rosuvastatin Calcium 20 mg PO HS 04/18/22 [History] ALPRAZolam [Xanax] 0.25 mg PO DAILY PRN 01/03/24 [History] Apixaban [Eliquis] 5 mg PO BID 01/03/24 [History] Baclofen 5 mg PO TID 01/03/24 [History] Cetirizine HCl [Zyrtec] 10 mg PO DAILY 01/03/24 [History] Fluticasone/Umeclidin/Vilanter [Trelegy Ellipta 100-62.5-25] 1 puff INHALATION RT-DAILY 01/03/24 [History] Mupirocin 2% Oint [Bactroban 2% Oint] 1 applic TOPICAL TID 01/03/24 [History] Nystatin 100,000 Unit/ml Susp [Mycostatin Oral Susp] 500,000 ml PO QID 01/03/24 [History] Zinc Gluconate [Zinc] 50 mg PO DAILY 01/03/24 [History] metFORMIN HCL [Glucophage] 500 mg PO BID 01/03/24 [History] Follow up Appointment(s)/Referral(s): Jared Wagner MD [Primary Care Provider] - 1-2 days Discharge Disposition: DISCH TO HOSP[facility]
[2024-01-12] MEDS ORDERED: VANCOMYCIN TROUGH DUE 1 EACH MISC MISCELLANE ONE (07:00)
== END 2024-01-10 14:43 | disposition hospice, inpatient (51) | DRG 205 ==
LOC: EC 10:49 → 3SCARD 14:09
PROVIDERS: ADMIT Student in an Organized Health Care Education/Training Program; ATTEND Student in an Organized Health Care Education/Training Program
DX: J70.4 Drug-induced interstitial lung disorders, unspecified (principal); I21.4 Non-ST elevation (NSTEMI) myocardial infarction; I26.99 Other pulmonary embolism without acute cor pulmonale; I63.40 Cerebral infarction due to embolism of unspecified cerebral artery; J96.21 Acute and chronic respiratory failure with hypoxia; C34.90 Malignant neoplasm of unspecified part of unspecified bronchus or lung; C78.00 Secondary malignant neoplasm of unspecified lung; C79.31 Secondary malignant neoplasm of brain; E87.1 Hypo-osmolality and hyponatremia; E87.20 Acidosis, unspecified; I82.403 Acute embolism and thrombosis of unspecified deep veins of lower extremity, bilateral; J44.0 Chronic obstructive pulmonary disease with (acute) lower respiratory infection; N17.9 Acute kidney failure, unspecified; B37.0 Candidal stomatitis; I27.20 Pulmonary hypertension, unspecified; I10 Essential (primary) hypertension; D64.9 Anemia, unspecified; E03.9 Hypothyroidism, unspecified; J43.9 Emphysema, unspecified; E11.9 Type 2 diabetes mellitus without complications; Z51.5 Encounter for palliative care; Z66 Do not resuscitate; Z99.81 Dependence on supplemental oxygen; E87.6 Hypokalemia; F41.9 Anxiety disorder, unspecified; G89.29 Other chronic pain; R74.01 Elevation of levels of liver transaminase levels; T50.Z95A Adverse effect of other vaccines and biological substances, initial encounter; M21.379 Foot drop, unspecified foot; K21.9 Gastro-esophageal reflux disease without esophagitis; M19.90 Unspecified osteoarthritis, unspecified site; M51.369 Other intervertebral disc degeneration, lumbar region without mention of lumbar back pain or lower extremity pain; R04.0 Epistaxis; R79.1 Abnormal coagulation profile; E78.5 Hyperlipidemia, unspecified; Z91.81 History of falling; E83.42 Hypomagnesemia; E86.1 Hypovolemia; Z79.01 Long term (current) use of anticoagulants; Z79.1 Long term (current) use of non-steroidal anti-inflammatories (NSAID); Z79.82 Long term (current) use of aspirin; Z79.84 Long term (current) use of oral hypoglycemic drugs; Z79.890 Hormone replacement therapy; Z79.899 Other long term (current) drug therapy; Z86.16 Personal history of COVID-19; Z86.718 Personal history of other venous thrombosis and embolism; Z87.891 Personal history of nicotine dependence; Z86.19 Personal history of other infectious and parasitic diseases; Z28.310 Unvaccinated for COVID-19; Z88.8 Allergy status to other drugs, medicaments and biological substances
CPT/HCPCS: 36415; 70450; 70553; 71045; 71046; 71275; 76770; 78582; 80048; 80053; 80061; 80202; 81003; 82550; 83036; 83605; 83735; 83880; 83935; 84100; 84132; 84145; 84300; 84443; 84484; 85025; 85379; 85610; 85730; 86003; 87040; 87070; 87205; 87449; 87636; 93005; 93306; 93970; 94640; 94760; 96361; 96365; 96366; 96367; 99285

== ENCOUNTER 2024-01-10 13:47 | Inpatient (IN) | payer MEDICAID ==
[2024-01-10] MEDS ORDERED: ATROPINE OPHTH SOLN 1% 5ML BTL SUBLINGUAL PRN (14:29)
[2024-01-10] MEDS ORDERED: GLYCOPYRROLATE 0.2 MG/ML 2 ML VIAL IVP PRN (14:29)
[2024-01-10] MEDS: LORazepam 2 MG/ML INJ IV PRN (15:03)
[2024-01-10] MEDS: MORPHINE SULFATE (100 MG/2 ML) 100 MG in SODIUM CHLORIDE 0.9% 100 ML IV SCH (15:22)
--- NOTE | 2024-01-10 15:34 | P.HPIM ---
History of Present Illness H&P Date: 01/10/24 Chief Complaint: Hospice, comfort care Patient is a 63-year-old female with hypertension, hyperlipidemia, diabetes (controlled with diet), COPD (on home oxygen for 2 L GERD, history of lung CA diagnosed in April 2022 (with history of immunotherapy and radiation being seen by Dr. Manley) and DVT (on Eliquis) who came in for generalized weakness. Patient reported 3 to 4 weeks ago, she began to experience left hip pain that was intermittent dull nonradiating to an intensity of 8 to 7 out of 10 after being admitted for DVT of the left lower extremity. She went to the ER during that time in another facility and was told that it was a muscle sprain that only required bedrest. However, on 12/27 hip pain increased severity of 10 out of 10 and was intolerable which led the patient to seek care in another ED. She was prescribed morphine IM, a muscle relaxer and advised to continue her home tramadol. Her pain was controlled throughout the week but she noticed that she became generally weak with associated lethargy which led her to be wheelchair- bound and could not perform her usual ADLs including eating or drinking. On Sunday 12/31 she also experienced a fall but she was able to catch herself and did not lose consciousness and sat down on the bathroom floor for about an hour. Patient and patient's family decided not to seek care at the time. However, because the weakness was persistent and did not go away, family and patient decided to seek care today. She denied changes in vision, tremors, facial asymmetry, chest pain, shortness of breath, calf tenderness, fever, chills, sweats, dysuria, hematuria, nausea, vomiting, diarrhea, recent travel or recent sick contacts. In the ER, chest x-ray shows left midlung airspace opacities. CT brain shows hyperdense focus on posterior right frontal lobe with suspicion for acute microhemorrhage, no evidence of midline shift or edema. EKG shows sinus rhythm with a rate of [address]-T changes low voltage good R wave progression QTc 422 WBC 9.6 hemoglobin 10.4 MCV 95 platelet count 196 sodium 131 potassium 3.9 chloride 96 bicarb 22 BUN 33 creatinine 2.33 glucose 143 plasma lactic acid 3.7 phosphorus 4.9 AST 56 ALT 54 ALP 137 troponin 0.073 albumin 3.5. On admission, patient was afebrile at 97.5 pulse rate 100 respiratory 20 blood pressure 98/54 O2 saturation 97% Patient was admitted for an evaluation of debility, JENNIFER, pneumonia. Due to patient's current diagnosis of non-small cell lung cancer treated with immunotherapy hematology was also consulted. Patient was placed on IV fluids, nephrotoxic agents withheld and resolved on 01/05. Patient's troponins taken on admission continue to trend upward and cardiology was consulted for NSTEMI. IV heparin was given for 3 days and echocardiogram was done and resulted to have preserved ejection fraction. Cardiac catheterization contraindicated due to patient's acute conditions. Patient did not improve with azithromycin and ceftriaxone for pneumonia and O2 requirements increased. Pulmonology was consulted. Albuterol and Atrovent were initiated in addition to Symbicort. Heme-onc placed her on IV Solu-Medrol for concern for pneumonitis due to Imfinzi. Bactrim was also initiated for concern for pneumocystis pneumonia. Doppler of lower extremities were ordered per pulmonology due to increased O2 demands and was found to have positive DVT in right lower extremity. CTA of the chest showed no evidence of pulmonary embolism and showed marked interval increase in interstitial and air space processes diffusely in both lungs. CT brain was repeated and showed stable hyperdense focus on the posterior right frontal lobe with suspicion for hemorrhages or metastasis. MRI brain was ordered and found to have scattered bilateral microinfarcts potentially embolic infarcts to her bilateral cerebellum. Neurology consulted and MRI with and without contrast of her lumbar spine was ordered to determine metastasis. On 01/08, patient wished to be placed on no CODE STATUS. On 01/09, goals of care discussion was done with patient and patient's son and they decided to pursue hospice care. Review of systems: Pertinent positives and negatives as discussed in HPI, a complete review of systems was performed and all other systems are negative. Physical examination: Vital signs reviewed General: non toxic, no distress, on nasal cannula 15 L, appears fatigued Derm: no unusual rashes/lesions, warm Head: atraumatic, normocephalic, symmetric Eyes: EOMI, anicteric sclera, pupils equal round reactive to light ENT: Nose and ears atraumatic Neck: No cervical lymphadenopathy, trachea midline, supple Mouth: no lip lesion, mucus membranes moist Cardiovascular: S1S2 reg, no murmur, Lungs: Diffuse rhonchi, no rales, no accessory muscle use Abdominal: soft, nondistended, nontender to palpation, no guarding Ext: muscle strength 5 out of 5 in all 4 extremities grossly, no gross muscle atrophy, no contractures, positive dorsalis pedis pulse bilateral, no edema Neuro: CN II-XI grossly intact, no gross focal neuro deficits Psych: Alert, oriented, appropriate affect and mood Assessment and Plan: #. Acute on chronic hypoxic respiratory failure, possibly immunotherapy induced pneumonitis vs community-acquired pneumonia vs Pneumocystis pneumonia, rule out other causes #. History of DVT of left lower extremity #. Acute DVT of right lower extremity #. Embolic stroke seen on brain MRI #. Brain microhemorrhages seen on CT #. History of non-small cell lung cancer diagnosed in April 2022, status post lung and brain radiation and chemotherapy #. Right sided weakness per pulmonology #. Chronic back pain #. Debility -On hospice care -Oxygen supplementation as needed -Morphine 2mg IV naila 15 mins as needed for pain -Ativan 1mg IV every 2 hours as neede for anxiety I saw and evaluated the patient during the kimble and critical portions of this encounter, and discussed the case in detail with the resident author of this note, I agree with the Assessment and Plan, and my changes, if any, are highlighted in blue. Past Medical History Past Medical History: COPD, Diabetes Mellitus, GERD/Reflux, Hyperlipidemia, Hypertension, Osteoarthritis (OA), Thyroid Disorder Additional Past Medical History / Comment(s): hx hepatitis c with tx., diabetes diet controlled., emphysema, back pain, hx of covid x2 (2019,2021), left lung mass., pt states mild oral thrush and started on nystatin -pt to notify Dr. Zuniga PE. 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 , LEFT CARPAL TUNNEL RELEASE, LEFT ARTHROSCOPIC KNEE SURGERY., , RIGHT ELBOW SURG DAVID- (no anesthesia) Past Anesthesia/Blood Transfusion Reactions: No Reported Reaction Additional Past Anesthesia/Blood Transfusion Reaction / Comment(s): no hx of blood transfusion Past Psychological History: Anxiety Smoking Status: Former smoker Past Alcohol Use History: None Reported Additional Past Alcohol Use History / Comment(s): QUIT SMOKING 2015., STARTED SMOKING AGE 18., SMOKED 1/2PPD Past Drug Use History: None Reported - Past Family History Mother Family Medical History: No Reported History Sister(s) Family Medical History: Blood Disorder, Deep Vein Thrombosis (DVT) Additional Family Medical History / Comment(s): LEIDEN FACTOR FIVE Medications and Allergies Home Medications Medication Instructions Recorded Confirmed Type Albuterol Inhaler [Ventolin Hfa 2 puff INHALATION RT-QID PRN 12/04/21 01/10/24 History Inhaler] Gabapentin [Neurontin] 600 mg PO TID 12/04/21 01/10/24 History Levothyroxine Sodium [Synthroid] 88 mcg PO DAILY 12/04/21 01/10/24 History Losartan/Hydrochlorothiazide 1 tab PO DAILY 12/04/21 01/10/24 History [Losartan-Hctz 100-12.5 mg Tab] Meloxicam [Mobic] 15 mg PO DAILY 12/04/21 01/10/24 History amLODIPine [Norvasc] 5 mg PO DAILY 12/04/21 01/10/24 History buPROPion HCL [buPROPion HCL XL] 300 mg PO DAILY 12/04/21 01/10/24 History traMADol HCL 50 mg PO BID PRN 12/04/21 01/10/24 History Aspirin [Adult Low Dose Aspirin EC] 81 mg PO DAILY 04/18/22 01/10/24 History Cholecalciferol [Vitamin D3 (25 50 mcg PO DAILY 04/18/22 01/10/24 History Mcg = 1000 Iu)] Multivit with Calcium,Iron,Min 1 tab PO DAILY 04/18/22 01/10/24 History [Women's Multivitamin] Omeprazole [PriLOSEC] 40 mg PO HS 04/18/22 01/10/24 History Rosuvastatin Calcium 20 mg PO HS 04/18/22 01/10/24 History ALPRAZolam [Xanax] 0.25 mg PO DAILY PRN 01/03/24 01/10/24 History Apixaban [Eliquis] 5 mg PO BID 01/03/24 01/10/24 History Baclofen 5 mg PO TID 01/03/24 01/10/24 History Cetirizine HCl [Zyrtec] 10 mg PO DAILY 01/03/24 01/10/24 History Fluticasone/Umeclidin/Vilanter 1 puff INHALATION RT-DAILY 01/03/24 01/10/24 History [Trelegy Ellipta 100-62.5-25] Mupirocin 2% Oint [Bactroban 2% 1 applic TOPICAL TID 01/03/24 01/10/24 History Oint] Nystatin 100,000 Unit/ml Susp 500,000 ml PO QID 01/03/24 01/10/24 History [Mycostatin Oral Susp] Zinc Gluconate [Zinc] 50 mg PO DAILY 01/03/24 01/10/24 History metFORMIN HCL [Glucophage] 500 mg PO BID 01/03/24 01/10/24 History Allergies Allergy/AdvReac Type Severity Reaction Status Date / Time cefdinir Allergy SORES IN Verified 01/10/24 17:02 MOUTH" Physical Exam Osteopathic Statement: *. No significant issues noted on an osteopathic structural exam other than those noted in the History and Physical/Consult. Vitals: Intake and Output 01/10/24 01/10/24 01/10/24 06:59 14:59 22:59 Other: Weight 95.5 kg
[2024-01-10] MEDS: MORPHINE SULFATE 2 MG/ML SYRINGE IV PRN (16:53)
[2024-01-10] MEDS: SCOPOLAMINE 1 MG/72 HR PATCH TRANSDERM SCH (16:56)
[2024-01-11 03:14] VITALS: PULSE 118; RESP 20
--- NOTE | 2024-01-11 12:48 | P.DS ---
Providers Date of admission: 01/10/24 14:48 Attending physician: Julianne Owens MD Primary care physician: [facility] Course: Hospital Course: Patient is a 63-year-old female with hypertension, hyperlipidemia, diabetes (controlled with diet), COPD (on home oxygen for 2 L GERD, history of lung CA diagnosed in April 2022 (with history of immunotherapy and radiation being seen by Dr. Manley) and DVT (on Eliquis) who came in for generalized weakness. Patient reported 3 to 4 weeks ago, she began to experience left hip pain that was intermittent dull nonradiating to an intensity of 8 to 7 out of 10 after being admitted for DVT of the left lower extremity. She went to the ER during that time in another facility and was told that it was a muscle sprain that only required bedrest. However, on 12/27 hip pain increased severity of 10 out of 10 and was intolerable which led the patient to seek care in another ED. She was prescribed morphine IM, a muscle relaxer and advised to continue her home tramadol. Her pain was controlled throughout the week but she noticed that she became generally weak with associated lethargy which led her to be wheelchair- bound and could not perform her usual ADLs including eating or drinking. On Sunday 12/31 she also experienced a fall but she was able to catch herself and did not lose consciousness and sat down on the bathroom floor for about an hour. Patient and patient's family decided not to seek care at the time. However, because the weakness was persistent and did not go away, family and patient decided to seek care today. She denied changes in vision, tremors, facial asymmetry, chest pain, shortness of breath, calf tenderness, fever, chills, sweats, dysuria, hematuria, nausea, vomiting, diarrhea, recent travel or recent sick contacts. In the ER, chest x-ray shows left midlung airspace opacities. CT brain shows hyperdense focus on posterior right frontal lobe with suspicion for acute microhemorrhage, no evidence of midline shift or edema. EKG shows sinus rhythm with a rate of [address]-T changes low voltage good R wave progression QTc 422 WBC 9.6 hemoglobin 10.4 MCV 95 platelet count 196 sodium 131 potassium 3.9 chloride 96 bicarb 22 BUN 33 creatinine 2.33 glucose 143 plasma lactic acid 3.7 phosphorus 4.9 AST 56 ALT 54 ALP 137 troponin 0.073 albumin 3.5. On admission, patient was afebrile at 97.5 pulse rate 100 respiratory 20 blood pressure 98/54 O2 saturation 97% Patient was admitted for an evaluation of debility, JENNIFER, pneumonia. Due to patient's current diagnosis of non-small cell lung cancer treated with immunotherapy hematology was also consulted. Patient was placed on IV fluids, nephrotoxic agents withheld and resolved on 01/05. Patient's troponins taken on admission continue to trend upward and cardiology was consulted for NSTEMI. IV heparin was given for 3 days and echocardiogram was done and resulted to have preserved ejection fraction. Cardiac catheterization contraindicated due to patient's acute conditions. Patient did not improve with azithromycin and ceftriaxone for pneumonia and O2 requirements increased. Pulmonology was consulted. Albuterol and Atrovent were initiated in addition to Symbicort. Heme-onc placed her on IV Solu-Medrol for concern for pneumonitis due to Imfinzi. Bactrim was also initiated for concern for pneumocystis pneumonia. Doppler of lower extremities were ordered per pulmonology due to increased O2 demands and was found to have positive DVT in right lower extremity. CTA of the chest showed no evidence of pulmonary embolism and showed marked interval increase in interstitial and air space processes diffusely in both lungs. CT brain was repeated and showed stable hyperdense focus on the posterior right frontal lobe with suspicion for hemorrhages or metastasis. MRI brain was ordered and found to have scattered bilateral microinfarcts potentially embolic infarcts to her bilateral cerebellum. Neurology consulted and MRI with and without contrast of her lumbar spine was ordered to determine metastasis. On 01/08, patient wished to be placed on no CODE STATUS. On 01/09, goals of care discussion was done with patient and patient's son and they decided to pursue hospice care. Patient was made comfortable medications for pain control, anxiety and secretions. Patient passed on 01/10 around 5 AM in the morning. Final Diagnosis: #. Acute on chronic hypoxic respiratory failure, possibly immunotherapy induced pneumonitis vs community-acquired pneumonia vs Pneumocystis pneumonia, rule out other causes #. History of DVT of left lower extremity #. Acute DVT of right lower extremity #. Embolic stroke seen on brain MRI #. Brain microhemorrhages seen on CT #. History of non-small cell lung cancer diagnosed in April 2022, status post lung and brain radiation and chemotherapy #. Right sided weakness per pulmonology #. Chronic back pain #. Debility Physical examination: Unable to perform physical exam. Patient before my evaluation today I saw and evaluated the patient during the kimble and critical portions of this encounter, and discussed the case in detail with the resident author of this note, I agree with the Assessment and Plan, and my changes, if any, are highlighted in blue. Plan - Discharge Summary New Discharge Prescriptions: No Action Losartan/Hydrochlorothiazide [Losartan-Hctz 100-12.5 mg Tab] 1 tab PO DAILY Meloxicam [Mobic] 15 mg PO DAILY Albuterol Inhaler [Ventolin Hfa Inhaler] 2 puff INHALATION RT-QID PRN PRN Reason: Shortness Of Breath Or Wheezing Omeprazole [PriLOSEC] 40 mg PO HS Multivit with Calcium,Iron,Min [Women's Multivitamin] 1 tab PO DAILY Aspirin [Adult Low Dose Aspirin EC] 81 mg PO DAILY Apixaban [Eliquis] 5 mg PO BID Baclofen 5 mg PO TID Fluticasone/Umeclidin/Vilanter [Trelegy Ellipta 100-62.5-25] 1 puff INHALATION RT-DAILY Nystatin 100,000 Unit/ml Susp [Mycostatin Oral Susp] 500,000 ml PO QID amLODIPine [Norvasc] 5 mg PO DAILY Levothyroxine Sodium [Synthroid] 88 mcg PO DAILY traMADol HCL 50 mg PO BID PRN PRN Reason: Pain Gabapentin [Neurontin] 600 mg PO TID buPROPion HCL [buPROPion HCL XL] 300 mg PO DAILY Rosuvastatin Calcium 20 mg PO HS Cholecalciferol [Vitamin D3 (25 Mcg = 1000 Iu)] 50 mcg PO DAILY ALPRAZolam [Xanax] 0.25 mg PO DAILY PRN PRN Reason: Anxiety metFORMIN HCL [Glucophage] 500 mg PO BID Mupirocin 2% Oint [Bactroban 2% Oint] 1 applic TOPICAL TID Cetirizine HCl [Zyrtec] 10 mg PO DAILY Zinc Gluconate [Zinc] 50 mg PO DAILY Discharge Medication List Albuterol Inhaler [Ventolin Hfa Inhaler] 2 puff INHALATION RT-QID PRN 12/04/21 [History] Gabapentin [Neurontin] 600 mg PO TID 12/04/21 [History] Levothyroxine Sodium [Synthroid] 88 mcg PO DAILY 12/04/21 [History] Losartan/Hydrochlorothiazide [Losartan-Hctz 100-12.5 mg Tab] 1 tab PO DAILY 12/04/21 [History] Meloxicam [Mobic] 15 mg PO DAILY 12/04/21 [History] amLODIPine [Norvasc] 5 mg PO DAILY 12/04/21 [History] buPROPion HCL [buPROPion HCL XL] 300 mg PO DAILY 12/04/21 [History] traMADol HCL 50 mg PO BID PRN 12/04/21 [History] Aspirin [Adult Low Dose Aspirin EC] 81 mg PO DAILY 04/18/22 [History] Cholecalciferol [Vitamin D3 (25 Mcg = 1000 Iu)] 50 mcg PO DAILY 04/18/22 [History] Multivit with Calcium,Iron,Min [Women's Multivitamin] 1 tab PO DAILY 04/18/22 [History] Omeprazole [PriLOSEC] 40 mg PO HS 04/18/22 [History] Rosuvastatin Calcium 20 mg PO HS 04/18/22 [History] ALPRAZolam [Xanax] 0.25 mg PO DAILY PRN 01/03/24 [History] Apixaban [Eliquis] 5 mg PO BID 01/03/24 [History] Baclofen 5 mg PO TID 01/03/24 [History] Cetirizine HCl [Zyrtec] 10 mg PO DAILY 01/03/24 [History] Fluticasone/Umeclidin/Vilanter [Trelegy Ellipta 100-62.5-25] 1 puff INHALATION RT-DAILY 01/03/24 [History] Mupirocin 2% Oint [Bactroban 2% Oint] 1 applic TOPICAL TID 01/03/24 [History] Nystatin 100,000 Unit/ml Susp [Mycostatin Oral Susp] 500,000 ml PO QID 01/03/24 [History] Zinc Gluconate [Zinc] 50 mg PO DAILY 01/03/24 [History] metFORMIN HCL [Glucophage] 500 mg PO BID 01/03/24 [History] Discharge Disposition: - Preliminary Cause of Preliminary Cause of : 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
== END 2024-01-11 07:05 | disposition expired | DRG 951 ==
LOC: 3SCARD 14:48
DX: Z51.5 Encounter for palliative care (principal); I63.40 Cerebral infarction due to embolism of unspecified cerebral artery; J96.21 Acute and chronic respiratory failure with hypoxia; B59 Pneumocystosis; J18.9 Pneumonia, unspecified organism; N17.9 Acute kidney failure, unspecified; I82.401 Acute embolism and thrombosis of unspecified deep veins of right lower extremity; C79.31 Secondary malignant neoplasm of brain; C34.92 Malignant neoplasm of unspecified part of left bronchus or lung; Z66 Do not resuscitate; J43.9 Emphysema, unspecified; E11.9 Type 2 diabetes mellitus without complications; Z99.81 Dependence on supplemental oxygen; I10 Essential (primary) hypertension; E78.5 Hyperlipidemia, unspecified; R53.81 Other malaise; G89.29 Other chronic pain; F41.9 Anxiety disorder, unspecified; M54.9 Dorsalgia, unspecified; Z79.01 Long term (current) use of anticoagulants; Z86.16 Personal history of COVID-19; Z92.3 Personal history of irradiation; Z92.21 Personal history of antineoplastic chemotherapy; Z86.718 Personal history of other venous thrombosis and embolism; Z87.891 Personal history of nicotine dependence; Z79.82 Long term (current) use of aspirin; Z79.1 Long term (current) use of non-steroidal anti-inflammatories (NSAID); Z79.890 Hormone replacement therapy; Z79.899 Other long term (current) drug therapy; Z79.51 Long term (current) use of inhaled steroids; Z79.84 Long term (current) use of oral hypoglycemic drugs; Z91.81 History of falling